=== PATIENT | female | born 1935 | race Caucasian/White ===

== ENCOUNTER 2017-02-11 13:04 | Inpatient (IN) | payer OTHER ==
--- NOTE | 2017-02-11 13:48 | PDOC ---
History of Present Illness - General History Source: Patient Exam Limitations: No Limitations <WendyAlex - Last Filed: 02/11/17 13:48> - General History Source: Patient Exam Limitations: No Limitations <Ketty Gongora - Last Filed: 02/11/17 16:51> - General Chief Complaint: Syncope/Near Syncope Stated Complaint: SYNCOPE Time Seen by Provider: 02/11/17 13:35 - History of Present Illness Initial Comments: 02/11/17 13:49 The patient is an 82 year old female with a significant past medical history of hypertension, hyperlipidemia, chronic vertigo, dementia, alzheimer's, GERD, who presents to the ED complaining of syncope. The patient reports that she had a syncopal episode during [facility] today. She states she felt dizzy, reports brief LOC, she now reports generalized weakness. As per family her fall was broken by them. She denies chest pain, pressure , SOB, palpitations, chills, fever, nausea, vomiting, blurry vision, urinary symptoms. PCP: Case Peter: [place] [address] (Alex Nguyen) Past History <WendyAlex - Last Filed: 02/11/17 13:48> - Past Medical History Cardiac Disorders: Yes Dementia: Yes HTN: Yes Hypercholesterolemia: Yes Other medical history: CHRONIC VERTIGO AND TREMORS - Surgical History Abdominal Surgery: Yes Appendectomy: Yes - Immunization History Immunization Up to Date: Yes - Psycho/Social/Smoking Cessation Hx Suicidal Ideation: No Smoking History: Never smoked Have you smoked in the past 12 months: No Number of Cigarettes Smoked Daily: 0 Information on smoking cessation initiated: No Hx Alcohol Use: No Drug/Substance Use Hx: No Substance Use Type: None Hx Substance Use Treatment: No <Ketty Gongora - Last Filed: 02/11/17 16:51> - Past Medical History Allergies/Adverse Reactions: Allergies Allergy/AdvReac Type Severity Reaction Status Date / Time No Known Allergies Allergy Verified 06/24/15 20:50 Home Medications: Ambulatory Orders Amlodipine Besylate 5 mg PO DAILY 06/24/15 Aspirin Coated [Ecotrin -] 1 tab PO DAILY 06/24/15 Atorvastatin Ca [Lipitor] 20 mg PO HS 06/24/15 Donepezil HCl [Aricept -] 5 mg PO DAILY 06/24/15 Meclizine HCl 25 mg PO BID 06/24/15 Memantine HCl [Namenda -] 5 mg PO BID 06/24/15 Omeprazole [Prilosec] 20 mg PO DAILY 06/24/15 Amoxicillin/Potassium Clav [Augmentin 875-125 Tablet] 1 each PO Q12H #20 tablet 06/28/15 Lisinopril [Zestril] 20 mg PO DAILY #0 06/28/15 Review of Systems - Review of Systems Able to Perform ROS?: Yes <Alex Nguyen - Last Filed: 02/11/17 13:48> <Ketty Gongora - Last Filed: 02/11/17 16:51> - Review of Systems Comments:: 02/11/17 13:49 GENERAL/CONSTITUTIONAL: +Generalized weakness No fever or chills. No weakness. HEAD, EYES, EARS, NOSE AND THROAT: No change in vision. No ear pain or discharge. No sore throat. GASTROINTESTINAL: No nausea, vomiting, diarrhea or constipation. GENITOURINARY: No dysuria, frequency, or change in urination. CARDIOVASCULAR: No chest pain or shortness of breath. RESPIRATORY: No cough, wheezing, or hemoptysis. MUSCULOSKELETAL: No joint or muscle swelling or pain. No neck or back pain. SKIN: No rash NEUROLOGIC: +Vertigo, LOC Syncope. No headache, vertigo, loss of consciousness, or change in strength/sensation. ENDOCRINE: No increased thirst. No abnormal weight change. HEMATOLOGIC/LYMPHATIC: No anemia, easy bleeding, or history of blood clots. ALLERGIC/IMMUNOLOGIC: No hives or skin allergy. (Alex Nguyen) *Physical Exam <Alex Nguyen - Last Filed: 02/11/17 13:48> <Ketty Gongora - Last Filed: 02/11/17 16:51> - Vital Signs Last Vital Signs Temp Pulse Resp BP Pulse Ox 98.1 F 70 18 109/65 97 02/11/17 13:28 02/11/17 13:28 02/11/17 13:28 02/11/17 13:28 02/11/17 13:28 - Physical Exam Comments: 02/11/17 13:50 GENERAL:. Awake, alert, and fully oriented, in no acute distress HEAD: No signs of trauma EYES: PERRLA, EOMI, sclera anicteric, conjunctiva clear ENT: Auricles normal inspection, nares patent, Moist mucosa NECK: Normal ROM, supple, no lymphadenopathy, JVD, or masses LUNGS: Breath sounds equal, clear to auscultation bilaterally. No wheezes, and no crackles HEART: Regular rate and rhythm, normal S1 and S2, no murmurs, rubs or gallops ABDOMEN: Soft, nontender, normoactive bowel sounds. No guarding, no rebound. No masses EXTREMITIES: Normal range of motion, no edema. No clubbing or cyanosis. No cords, erythema, or tenderness NEUROLOGICAL: A&OX3, 5/5 all 4 extremities, 2-12 cranial nerves intact. Norrmal speech. SKIN: Warm, Dry, normal turgor, no rashes or lesions noted. (Alex Nguyen) ED Treatment Course - LABORATORY CBC & Chemistry Diagram: 02/11/17 13:40 02/11/17 13:40 <Ketty Gongora - Last Filed: 02/11/17 16:51> - ADDITIONAL ORDERS Additional order review: Laboratory Results 02/11/17 13:40 Sodium 139 Potassium 4.3 D Chloride 104 Carbon Dioxide 28 Anion Gap 7 L BUN 20 H D Creatinine 1.2 H Creat Clearance w eGFR 43.23 Random Glucose 161 H D Calcium 9.2 Total Bilirubin 0.5 D AST 27 ALT 26 Alkaline Phosphatase 108 Creatine Kinase 59 Troponin I < 0.02 Total Protein 6.7 Albumin 3.2 L 02/11/17 13:40 RBC 4.10 MCV 76.1 L MCHC 32.0 RDW 17.8 H D MPV 7.5 Neutrophils % 83.6 H D Lymphocytes % 6.0 L D Monocytes % 8.6 Eosinophils % 0.6 Basophils % 1.2 - RADIOLOGY Radiology Studies Ordered: Category Date Time Status HEAD CT WITHOUT CONTRAST [CT] Stat CT Scan 02/11/17 16:34 Ordered CXRPORT [CHEST X-RAY PORTABLE*] [RAD] Stat Radiology 02/11/17 13:37 Completed Medical Decision Making <Alex Nguyen - Last Filed: 02/11/17 13:48> <Ketty Gongora - Last Filed: 02/11/17 16:51> - Medical Decision Making 02/11/17 13:40 82 yo F with h/o HTN HLD, here with syncopal episode at [facility]. brief loc, no focal weakness, did not hit head. normal exam.pt with chronic vertigo. differential electrolyte abnormality, dysrhthymia, anemia dehydration mi, mi. plan labs cxr ua r/o infection, ekg tele. 02/11/17 15:59 pt labs unremarkable. ekg normal except TWI AVL only, cbc normal trop negative. will admit for observation on telemetry cardiac rule out and r/o dysrhtymia. (Ketty Gongora) *DC/Admit/Observation/Transfer <Alex Nguyen - Last Filed: 02/11/17 13:48> - Discharge Dispostion Admit: Yes <Ketty Gongora - Last Filed: 02/11/17 16:51> Diagnosis at time of Disposition: Syncope - Referrals Referrals: STAFF,NOT ON [Primary Care Provider] - - Attestations Scribe Attestion: 02/11/17 13:50 Documentation prepared by Alex Nguyen, acting as medical assistant for Ketty Gongora MD. (Alex Nguyen)
[2017-02-11 13:58] LABS: BASOPHIL 1.2 % (0-2.0); EOSINOPHIL 0.6 % (0-4.5); MCH 24.4 pg (25.7-33.7); MEAN CELL VOLUME 76.1 fl (80-96); MEAN PLT VOLUME 7.5 fl (7.5-11.1); NEUTROPHILS 83.6 % (42.8-82.8); PLATELET COUNT 351 K/MM3 (134-434); RDW 17.8 % (11.6-15.6); WHITE BLOOD COUNT 8.5 K/mm3 (4.0-10.0)
[2017-02-11 14:22] LABS: ALBUMIN 3.2 g/dl (3.4-5.0); ANION GAP 7 (8-16); BILIRUBIN,TOTAL 0.5 mg/dL (0.2-1.0); CALCIUM 9.2 mg/dL (8.5-10.1); CO2 28 mmol/L (21-32); CREATININE 1.2 mg/dL (0.55-1.02); GLUCOSE,RANDOM 161 mg/dL (74-106); SGOT/AST 27 U/L (15-37); SGPT/ALT 26 U/L (12-78); TOT PROT 6.7 g/dl (6.4-8.2)
[2017-02-11 14:25] LABS: ALK PHOS 108 U/L (45-117); CPK 59 IU/L (26-192); TROPONIN I < 0.02 ng/ml (0.00-0.05)
[2017-02-11] MEDS ORDERED: SODIUM CHLORIDE 0.9% 1000 ML INFUS.BAG IV ONE (16:16)
[2017-02-11] MEDS ORDERED: SODIUM CHLORIDE 1,000 ML IV SCH ×2 (16:45→18:48)
[2017-02-11 16:58] LABS: URINE APPEARANCE SLCLOUDY; URINE BILIRUBIN NEGATIVE (NEGATIVE); URINE BLOOD NEGATIVE (NEGATIVE); URINE COLOR YELLOW; URINE GLUCOSE (UA) NEGATIVE (NEGATIVE); URINE KETONE NEGATIVE (NEGATIVE); URINE LEUK ESTERASE TRACE (NEGATIVE); URINE NITRITE NEGATIVE (NEGATIVE); URINE UROBILINOGEN NEGATIVE mg/dL (0.2-1.0)
[2017-02-11 17:19] LABS: CHOLESTEROL 166 mg/dL (50-200); LDL CHOLESTEROL (ONLY SJRH) 99 mg/dL (5-100)
[2017-02-11 17:47] LABS: URINE PROTEIN 1+ (NEGATIVE)
[2017-02-11 17:48] LABS: URINE HYALINE CAST 3 /lpf; URINE MUCUS FEW; URINE RBC <1 /hpf (0-3); URINE WBC 5 /hpf (3-5)
--- NOTE | 2017-02-11 18:09 | HP ---
PCP: Case Peter: [facility]; [address], [place], [place] [id number] CHIEF COMPLAINT: Syncope HISTORY OF PRESENT ILLNESS: Pt is a 82yo F with a PMHx of HTN, HLD, CAD, Vertigo who presented to the ER after syncopal episode. Pt is eritrean speaking, and translation was provided by eritrean speaking ER Nurse. Patient's daughter also provided some history. This AM, the patient was standing in [employer]. She felt weak, "dizzy", sat down in the pew, and moments later syncopized, without head trauma. She initially looked flushed and then was visibly pale. Family took the patient outside, and after 1 minute, pt regained consciousness. Though the patient felt dizzy, she denies feelings of vertigo such as room spinning or feeling that she is spinning. She denies hx of DM2. Family states the patient was "tremulous" but deny arm stiffening, loss of urinary continence, tongue biting, eye opening/ deviation, and the patient denies any prior "aura" or confusion/focal neurological symptoms upon awakening. The patient denies feeling warm or palpitations or headaches prior to syncope. The daughter states she does not drink as much water as she should. She has had 4 prior episodes of near syncope or syncope within the past month. Pt was seen here in 2016. Of note, since then her BP medications have been changed: Norvasc 5mg QD was discontinued and Lisinopril was increased from 20mg to 40mg QD ER course was notable for: (1) Labs - Hemoglobin 10.0, w/ low MCV, baseline 11 (2) IVNS 1L bolus (3) CXR - neg (4) EKG - Shows TWI AVL only Recent Travel: Denies PAST MEDICAL HISTORY: HTN, HLD, Vertigo, CAD, Dementia PAST SURGICAL HISTORY: Hysterectomy, appendectomy and cataract surgery. Right kidney stone removal and ureteral stent. Social History: Lives at home with daughter Smoking: Denies Alcohol: Denies Drugs: Denies Family History: Non-contributory Allergies: No Known Allergies Allergy (Verified 06/24/15 20:50) HOME MEDICATIONS: Home Medications (RECONCILED WITH PATIENT) Medication Instructions Recorded Aspirin Coated [Ecotrin -] 1 tab PO DAILY 06/24/15 Atorvastatin Ca [Lipitor] 20 mg PO HS 06/24/15 Meclizine HCl 25 mg PO BID 06/24/15 Omeprazole [Prilosec] 20 mg PO DAILY 06/24/15 Lisinopril [Zestril] 40 mg PO DAILY 02/11/17 REVIEW OF SYSTEMS CONSTITUTIONAL: Absent: fever, chills, diaphoresis, generalized, malaise, loss of appetite, weight change Present: weakness HEENT: Absent: rhinorrhea, nasal congestion, throat pain, throat swelling, difficulty swallowing, mouth swelling, ear pain, eye pain, visual changes CARDIOVASCULAR: Absent: chest pain, syncope, palpitations, irregular heart rate, lightheadedness , peripheral edema RESPIRATORY: Absent: cough, shortness of breath, dyspnea with exertion, orthopnea, wheezing, stridor, hemoptysis GASTROINTESTINAL: Absent: abdominal pain, abdominal distension, nausea, vomiting, diarrhea, constipation, melena, hematochezia GENITOURINARY: Absent: dysuria, frequency, urgency, hesitancy, hematuria, flank pain, genital pain MUSCULOSKELETAL: Absent: myalgia, arthralgia, joint swelling, back pain, neck pain SKIN: Absent: rash, itching, pallor HEMATOLOGIC/IMMUNOLOGIC: Absent: easy bleeding, easy bruising, lymphadenopathy, frequent infections ENDOCRINE: Absent: unexplained weight gain, unexplained weight loss, heat intolerance, cold intolerance NEUROLOGIC: Absent: headache, focal weakness or paresthesias, unsteady gait, seizure, mental status changes, bladder or bowel incontinence Present: dizziness PSYCHIATRIC: Absent: anxiety, depression, suicidal or homicidal ideation, hallucinations. PHYSICAL EXAMINATION GEN: Awake, alert, NAD, resting comfortably HNT: PERRLA, EOMi, Conjunctival pallor, no cervical LAD CV: S1, S2, RRR, no murmurs LUNG: CTABL ABD: Soft, NT, ND MSK: No edema Neuro: CN 2-12 intact, no sensation deficits, MSK 5/5, reflexes 2+, no focal neuro signs Laboratory Last Values WBC 8.5 K/mm3 (4.0-10.0) 02/11/17 13:40 RBC 4.10 M/mm3 (3.60-5.2) 02/11/17 13:40 Hgb 10.0 GM/dL (10.7-15.3) L 02/11/17 13:40 Hct 31.2 % (32.4-45.2) L 02/11/17 13:40 MCV 76.1 fl (80-96) L 02/11/17 13:40 MCH 24.4 pg (25.7-33.7) L 02/11/17 13:40 MCHC 32.0 g/dl (32.0-36.0) 02/11/17 13:40 RDW 17.8 % (11.6-15.6) H D 02/11/17 13:40 Plt Count 351 K/MM3 (134-434) D 02/11/17 13:40 MPV 7.5 fl (7.5-11.1) 02/11/17 13:40 Neutrophils % 83.6 % (42.8-82.8) H D 02/11/17 13:40 Lymphocytes % 6.0 % (8-40) L D 02/11/17 13:40 Monocytes % 8.6 % (3.8-10.2) 02/11/17 13:40 Eosinophils % 0.6 % (0-4.5) 02/11/17 13:40 Basophils % 1.2 % (0-2.0) 02/11/17 13:40 Sodium 139 mmol/L (136-145) 02/11/17 13:40 Potassium 4.3 mmol/L (3.5-5.1) D 02/11/17 13:40 Chloride 104 mmol/L (98-107) 02/11/17 13:40 Carbon Dioxide 28 mmol/L (21-32) 02/11/17 13:40 Anion Gap 7 (8-16) L 02/11/17 13:40 BUN 20 mg/dL (7-18) H D 02/11/17 13:40 Creatinine 1.2 mg/dL (0.55-1.02) H 02/11/17 13:40 Creat Clearance w eGFR 43.23 (>60) 02/11/17 13:40 Random Glucose 161 mg/dL (74-106) H D 02/11/17 13:40 Calcium 9.2 mg/dL (8.5-10.1) 02/11/17 13:40 Total Bilirubin 0.5 mg/dL (0.2-1.0) D 02/11/17 13:40 AST 27 U/L (15-37) 02/11/17 13:40 ALT 26 U/L (12-78) 02/11/17 13:40 Alkaline Phosphatase 108 U/L (45-117) 02/11/17 13:40 Creatine Kinase 59 IU/L (26-192) 02/11/17 13:40 Troponin I < 0.02 ng/ml (0.00-0.05) 02/11/17 13:40 Total Protein 6.7 g/dl (6.4-8.2) 02/11/17 13:40 Albumin 3.2 g/dl (3.4-5.0) L 02/11/17 13:40 Triglycerides 178 mg/dL (35-160) H 02/11/17 Unknown Cholesterol 166 mg/dL (50-200) 02/11/17 Unknown Total LDL Cholesterol 99 mg/dL (5-100) 02/11/17 Unknown HDL Cholesterol 46 mg/dL (40-60) 02/11/17 Unknown Urine Color Yellow 02/11/17 16:50 Urine Appearance Slcloudy 02/11/17 16:50 Urine pH 5.0 (5.0-8.0) 02/11/17 16:50 Urine Protein 1+ (NEGATIVE) H 02/11/17 16:50 Urine Glucose (UA) Negative (NEGATIVE) 02/11/17 16:50 Urine Ketones Negative (NEGATIVE) 02/11/17 16:50 Urine Blood Negative (NEGATIVE) 02/11/17 16:50 Urine Nitrite Negative (NEGATIVE) 02/11/17 16:50 Urine Bilirubin Negative (NEGATIVE) 02/11/17 16:50 Urine Urobilinogen Negative mg/dL (0.2-1.0) 02/11/17 16:50 Ur Leukocyte Esterase Trace (NEGATIVE) 02/11/17 16:50 ASSESSMENT/PLAN: Mrs. Abraham is a 82yo F with HTN, HLD, Vertigo who presented to ER after an episode of syncope, witnessed by family. Endorses low PO intake. # Syncope - Likely secondary to dehydration - Noncon Head CT - Orthostatic vitals - Carotid dopplers - Echo - UA+UCx - F/u Blood pressure # Acute Kidney Risk - Likely from dehydration - By RIFLE Criteria, since GFR decrease >25% from 60 --> 43 - Cr 1.2, baseline 1.0 - Will hold lisinopril - IV NS 75cc/hr x 1bag and f/u BMP in AM # Microcytic Anemia - Iron studies - FOBT # Hyperglycemia - Glucose 161 - A1C - BGMs w/ SSI # Hx of HLD - Continue statin # Hx of CAD - Continue ASA # Hx of GERD - Continue PPI # FEN - Fluids: IVNS 75cc/hr x 1 bag - continue if needed - Electrolytes: No abnormalities - Nutrition: Sodium controlled diet # Prophylaxis - DVT: Heparin SQ BID - GI: Not indicated - Deconditioning: Pt ordered # Dispo - Obs in Tele for cardiac monitoring - Await Neuro reccs Visit type - Emergency Visit Emergency Visit: Yes ED Registration Date: 02/11/17 Care time: The patient presented to the Emergency Department on the above date and was hospitalized for further evaluation of their emergent condition. - New Patient This patient is new to me today: Yes Date on this admission: 02/11/17 - Critical Care Critical Care patient: No
--- NOTE | 2017-02-11 18:47 | PN ---
Teaching Attending Note Name of Resident: Verito Engel ATTENDING PHYSICIAN STATEMENT I saw and evaluated the patient. I reviewed the resident's note and discussed the case with the resident. I agree with the resident's findings and plan as documented. SUBJECTIVE: Patient is a 82yo female presented with syncope while in the [employer], as per son this happens on a monthly basis, but this month , patient had 3 episodes of syncope in a month period. OBJECTIVE: Vital Signs Temperature 98.1 F 02/11/17 13:28 Pulse Rate 70 02/11/17 13:28 Respiratory Rate 18 02/11/17 13:28 Blood Pressure 109/65 02/11/17 13:28 O2 Sat by Pulse Oximetry (%) 97 02/11/17 13:28 CBCD WBC 8.5 K/mm3 (4.0-10.0) 02/11/17 13:40 RBC 4.10 M/mm3 (3.60-5.2) 02/11/17 13:40 Hgb 10.0 GM/dL (10.7-15.3) L 02/11/17 13:40 Hct 31.2 % (32.4-45.2) L 02/11/17 13:40 MCV 76.1 fl (80-96) L 02/11/17 13:40 MCHC 32.0 g/dl (32.0-36.0) 02/11/17 13:40 RDW 17.8 % (11.6-15.6) H D 02/11/17 13:40 Plt Count 351 K/MM3 (134-434) D 02/11/17 13:40 MPV 7.5 fl (7.5-11.1) 02/11/17 13:40 CMP Sodium 139 mmol/L (136-145) 02/11/17 13:40 Potassium 4.3 mmol/L (3.5-5.1) D 02/11/17 13:40 Chloride 104 mmol/L (98-107) 02/11/17 13:40 Carbon Dioxide 28 mmol/L (21-32) 02/11/17 13:40 Anion Gap 7 (8-16) L 02/11/17 13:40 BUN 20 mg/dL (7-18) H D 02/11/17 13:40 Creatinine 1.2 mg/dL (0.55-1.02) H 02/11/17 13:40 Creat Clearance w eGFR 43.23 (>60) 02/11/17 13:40 Random Glucose 161 mg/dL (74-106) H D 02/11/17 13:40 Calcium 9.2 mg/dL (8.5-10.1) 02/11/17 13:40 Total Bilirubin 0.5 mg/dL (0.2-1.0) D 02/11/17 13:40 AST 27 U/L (15-37) 02/11/17 13:40 ALT 26 U/L (12-78) 02/11/17 13:40 Alkaline Phosphatase 108 U/L (45-117) 02/11/17 13:40 Total Protein 6.7 g/dl (6.4-8.2) 02/11/17 13:40 Albumin 3.2 g/dl (3.4-5.0) L 02/11/17 13:40 CARDIAC ENZYMES Creatine Kinase 59 IU/L (26-192) 02/11/17 13:40 Troponin I < 0.02 ng/ml (0.00-0.05) 02/11/17 13:40 Home Medications Medication Instructions Recorded Aspirin Coated [Ecotrin -] 1 tab PO DAILY 06/24/15 Atorvastatin Ca [Lipitor] 20 mg PO HS 06/24/15 Meclizine HCl 25 mg PO BID 06/24/15 Omeprazole [Prilosec] 20 mg PO DAILY 06/24/15 Lisinopril [Zestril] 40 mg PO DAILY 02/11/17 Current Medications Generic Name Dose Route Start Last Admin Trade Name Berny PRN Reason Stop Dose Admin Atorvastatin Calcium 20 mg 02/11/17 22:00 Lipitor - PO HS [facility] Heparin Sodium (Porcine) 5,000 unit 02/11/17 22:00 Heparin - SQ TID [facility] Sodium Chloride 1,000 mls @ 75 mls/hr 02/11/17 16:45 Normal Saline - IV ASDIR ALBINO Insulin Aspart 1 vial 02/12/17 07:00 Novolog Vial Sliding Scale - SQ BIDAC [facility] Protocol Non-Formulary Medication 20 mg 02/12/17 10:00 Omeprazole Pediatric Solution PO DAILY [facility] PE: S1S2 positive, no carotid bruits SEM2/6, no gallop, no S3 ASSESSMENT AND PLAN: Patient is a 82yo F with HTN, HLD, Vertigo who presented to ER after an episode of syncope as per family member that they witnessed while the patient was in the [employer]. # Acute Syncope most likely vasovagal / dehydration since has low fluid intake, will get Carotids, neurology consult to see the patient. echo ordered , orthostatics. # ARF hold lisinopril for now, will monitor, IVF x 1 liter # Microcytic Anemia; Iron studies ; FOBT # Hyperglycemia R/o DM2; A1C; BGMs w/ SSI # Hx of HLD continue statin # Hx of CAD continue meds - # Hx of GERD continue PPI # DVT Prophylaxis :heparin SQ
[2017-02-11 18:52] VITALS: BMI 28.2
[2017-02-11] MEDS ORDERED: HEPARIN NA (PORCINE) 5,000 UNITS/ML 1ML VIAL SQ SCH ×2 (22:00)
[2017-02-12] MEDS ORDERED: HEPARIN NA (PORCINE) 5,000 UNITS/ML 1ML VIAL ONE (00:55)
[2017-02-12] MEDS: ATORVASTATIN CA 20 MG TABLET (FP) PO SCH ×2 (01:00→22:29)
[2017-02-12] MEDS: INSULIN SLIDING SCALE (NOVOLOG) 1 VIAL SQ SCH ×2 (07:46→18:00)
[2017-02-12] MEDS ORDERED: HEPARIN NA (PORCINE) 5,000 UNITS/ML 1ML VIAL SQ SCH ×2 (08:00→08:33)
[2017-02-12] MEDS: SODIUM CHLORIDE 1,000 ML IV SCH ×2 (08:03→18:00)
[2017-02-12 08:05] LABS: MCH 24.4 pg (25.7-33.7); MEAN CELL VOLUME 76.4 fl (80-96); MEAN PLT VOLUME 7.7 fl (7.5-11.1); PLATELET COUNT 315 K/MM3 (134-434); RDW 17.7 % (11.6-15.6); WHITE BLOOD COUNT 5.6 K/mm3 (4.0-10.0)
[2017-02-12 08:51] LABS: ANION GAP 8 (8-16); CO2 27 mmol/L (21-32); GLUCOSE,RANDOM 87 mg/dL (74-106)
[2017-02-12 08:54] LABS: CALCIUM 8.3 mg/dL (8.5-10.1); CREATININE 0.8 mg/dL (0.55-1.02)
[2017-02-12] MEDS: ASPIRIN COATED 81 MG TABLET.EC PO SCH (10:04)
[2017-02-12] MEDS: PANTOPRAZOLE SOD 40 MG SUSPENSION PACKET PO SCH (10:04)
--- NOTE | 2017-02-12 11:29 | EKG ---
Test Reason : Blood Pressure : / mmHG Vent. Rate : 062 BPM Atrial Rate : 068 BPM P-R Int : 266 ms QRS Dur : 070 ms QT Int : 418 ms P-R-T Axes : 033 037 074 degrees QTc Int : 424 ms SINUS RHYTHM WITH 1ST DEGREE A-V BLOCK WITH BLOCKED PREMATURE ATRIAL COMPLEXES POSSIBLE ANTERIOR INFARCT , AGE UNDETERMINED ABNORMAL ECG WHEN COMPARED WITH ECG OF 24-JUN-2015 21:05, BLOCKED PREMATURE ATRIAL COMPLEXES ARE NOW PRESENT T WAVE VARIATION VENT. RATE HAS DECREASED Confirmed by FRANCHESKA LAZCANO MD ([id number]) on 02/12/2017 11:28:56 AM Referred By: Confirmed By:FRANCHESKA LAZCANO MD
--- NOTE | 2017-02-12 14:43 | PN ---
Physical Exam: SUBJECTIVE: Patient seen and examined at bedside. Pt had a witnessed syncople episode in ED. Pt states she feels fine. No other complaints. Denies headache, chest pain, shortness of breath, fever, dysuria. OBJECTIVE: Vital Signs Period Temp Pulse Resp BP Sys/Reyes Pulse Ox Last 24 Hr 97.9 F-98 F 62-70 16-18 103-111/55-60 95-100 GENERAL: The patient is awake, alert, and fully oriented, in no acute distress. HEAD: Normal with no signs of trauma. EYES: sclera anicteric, conjunctiva clear. No ptosis. ENT: oropharynx clear without exudates, moist mucous membranes. NECK: Trachea midline, full range of motion, supple. LUNGS: Breath sounds equal, clear to auscultation bilaterally, no wheezes, no crackles, no accessory muscle use. HEART: Regular rate and rhythm, S1, S2 without murmur, rub or gallop. ABDOMEN: Soft, nontender, nondistended, normoactive bowel sounds, no guarding, no rebound, no hepatosplenomegaly, no masses. EXTREMITIES: 2+ pulses, warm, well-perfused, no edema. NEUROLOGICAL: Cranial nerves II through XII grossly intact. Normal speech, gait not observed. PSYCH: Normal mood, normal affect. SKIN: Warm, dry, normal turgor, no rashes or lesions noted Laboratory Results - last 24 hr 02/11/17 02/11/17 02/11/17 16:54 16:54 Unknown WBC RBC Hgb Hct MCV MCH MCHC RDW Plt Count MPV Sodium Potassium Chloride Carbon Dioxide Anion Gap BUN Creatinine POC Glucometer Random Glucose Hemoglobin A1c % 6.1 H Calcium Ferritin 8.507 Triglycerides 178 H Cholesterol 166 Total LDL Cholesterol 99 HDL Cholesterol 46 02/12/17 02/12/17 02/12/17 07:25 07:50 07:50 WBC 5.6 D RBC 3.76 Hgb 9.2 L Hct 28.7 L MCV 76.4 L MCH 24.4 L MCHC 32.0 RDW 17.7 H Plt Count 315 MPV 7.7 Sodium 145 Potassium 4.2 Chloride 110 H Carbon Dioxide 27 Anion Gap 8 BUN 16 Creatinine 0.8 D POC Glucometer [id number] Random Glucose 87 D Hemoglobin A1c % Calcium 8.3 L Ferritin Triglycerides Cholesterol Total LDL Cholesterol HDL Cholesterol Active Medications Generic Name Dose Route Start Last Admin Trade Name Berny PRN Reason Stop Dose Admin Aspirin 81 mg 02/12/17 10:00 02/12/17 10:04 Ecotrin - PO 81 mg DAILY ALBINO Administration Atorvastatin Calcium 20 mg 02/11/17 22:00 02/12/17 01:00 Lipitor - PO Not Given HS ALBINO Heparin Sodium (Porcine) 5,000 unit 02/12/17 22:00 Heparin - SQ BID ALBINO Sodium Chloride 1,000 mls @ 75 mls/hr 02/12/17 08:00 02/12/17 08:03 Normal Saline - IV 02/13/17 21:19 75 mls/hr ASDIR ALBINO Administration Insulin Aspart 1 vial 02/12/17 07:00 02/12/17 07:46 Novolog Vial Sliding Scale - SQ Not Given BIDAC ALBINO Protocol Pantoprazole Sodium 20 mg 02/12/17 10:00 02/12/17 10:04 Protonix Packets For Oral Suspension - PO 20 mg DAILY ALBINO Administration ASSESSMENT/PLAN: Mrs. Abraham is a 82yo F with HTN, HLD, Vertigo who presented to ER after an episode of syncope, witnessed by family. Endorses low PO intake. # Syncope - Likely secondary to dehydration - Noncon Head CT negative - Orthostatic vitals - Carotid dopplers show - UA+UCx pending - F/u Blood pressure - Echo pending # Acute Kidney Injury resolved - Likely from dehydration - By RIFLE Criteria, at risk since GFR decrease >25% from 60 --> 43 - Cr 0.8 - Will hold lisinopril - IV NS 75cc/hr x 1bag # Microcytic Anemia - Iron studies pending - Ferritin 8.507 - FOBT # Hyperglycemia - A1C - 6.1 - BGMs w/ SSI # Hx of HLD - Continue statin # Hx of CAD - Continue ASA # Hx of GERD - Continue PPI # FEN - Fluids: IVNS 75cc/hr - Electrolytes: No abnormalities - Nutrition: Sodium controlled diet # Prophylaxis - DVT: Heparin SQ BID - GI: Not indicated - Deconditioning: Pt ordered # Dispo - Obs in Tele for cardiac monitoring - Await Neuro reccs Justin Edwards MD PGY-1 Visit type - Emergency Visit Emergency Visit: No - New Patient This patient is new to me today: No - Critical Care Critical Care patient: No - Discharge Referral Referred to [facility] No
--- NOTE | 2017-02-12 17:15 | EKG ---
Test Reason : Blood Pressure : / mmHG Vent. Rate : 068 BPM Atrial Rate : 068 BPM P-R Int : 228 ms QRS Dur : 070 ms QT Int : 400 ms P-R-T Axes : 033 044 065 degrees QTc Int : 425 ms SINUS RHYTHM WITH 1ST DEGREE A-V BLOCK OTHERWISE NORMAL ECG WHEN COMPARED WITH ECG OF 11-FEB-2017 15:00, BLOCKED PREMATURE ATRIAL COMPLEXES ARE NO LONGER PRESENT Confirmed by JAELESA BARCENAS, FRANCHESKA ([id number]) on 02/12/2017 5:15:33 PM Referred By: KIMBERLY RIZVI Confirmed By:FRANCHESKA LAZCANO MD
--- NOTE | 2017-02-12 17:50 | CON.NEURO ---
Consult Consult Specialty:: Neurology-Nunu BARCENAS Reason for Consultation:: Syncope vs seizure - History of Present Illness Chief Complaint: Fainting History of Present Illness: Pt is a 82yo F with a PMHx of HTN, HLD, CAD, Vertigo who presented to the ER after syncopal episode. Pt is cameroonian speaking, and translation was provided by cameroonian speaking ER Nurse. Patient's daughter also provided some history. This AM, the patient was standing in [employer]. She felt weak, "dizzy", sat down in the pew, and moments later syncopized, without head trauma. She initially looked flushed and then was visibly pale. Family took the patient outside, and after 1 minute, pt regained consciousness. Though the patient felt dizzy, she denies feelings of vertigo such as room spinning or feeling that she is spinning. She denies hx of DM2. Family states the patient was "tremulous" but deny arm stiffening, loss of urinary continence, tongue biting, eye opening/ deviation, and the patient denies any prior "aura" or confusion/focal neurological symptoms upon awakening. The patient denies feeling warm or palpitations or headaches prior to syncope. The daughter states she does not drink as much water as she should. She has had 4 prior episodes of near syncope or syncope within the past month. Pt was seen here in 2016. Of note, since then her BP medications have been changed: Norvasc 5mg QD was discontinued and Lisinopril was increased from 20mg to 40mg QD Pts. daughter reports she stood up,had LOC x 2 minutes but did not fall as she was being held, following this she was confused, denies other neurologic symtoms. Three years ago shehada similar episode and in last several months she has had what appear to be presyncopal episodes as above.. - Past Medical History ATOMIC PROCESS ENGINEER: Yes: Dementia Cardio/Vascular: Yes: HTN, Hyperlipdemia - Past Surgical History Past Surgical History: Yes: Appendectomy, Cataract Removal, Hysterectomy - Alcohol/Substance Use Hx Alcohol Use: No - Smoking History Smoking history: Never smoked Have you smoked in the past 12 months: No Aproximately how many cigarettes per day: 0 Home Medications - Allergies Allergies/Adverse Reactions: Allergies Allergy/AdvReac Type Severity Reaction Status Date / Time No Known Allergies Allergy Verified 06/24/15 20:50 - Home Medications Home Medications: Ambulatory Orders Aspirin Coated [Ecotrin -] 1 tab PO DAILY 06/24/15 Atorvastatin Ca [Lipitor] 20 mg PO HS 06/24/15 Meclizine HCl 25 mg PO BID 06/24/15 Omeprazole [Prilosec] 20 mg PO DAILY 06/24/15 Lisinopril [Zestril] 40 mg PO DAILY 02/11/17 Physical Exam-Neuro Vital Signs: Vital Signs Temperature 98.3 F 02/12/17 15:53 Pulse Rate 72 02/12/17 15:53 Respiratory Rate 16 02/12/17 15:53 Blood Pressure 125/79 02/12/17 15:53 O2 Sat by Pulse Oximetry (%) 96 02/12/17 07:49 Labs: CBC, BMP 02/12/17 07:50 02/12/17 07:50 - Neuro Exam Level Of Consciousness: Yes: Alert, Oriented to Person, Oriented to Place (Not to day/date. Pt. has a hx.of AD) Mini Mental Exam: Unable to test formally due to preexisting cognitive deficits( AD and language barrier DTR's: 1+ Left Bicep, 1+ Right Bicep, 1+ Left Tricep, 1+ Right Tricep, 1+ Left Brachioradialis, 1+ Right Brachioradialis, 1+ Left Achilles, 1+ Right Achilles Response to light touch: Normal Response to pain prick: Normal (Unable to test vib/position) Coordination: Normal: Finger to Nose (Normal F-N) Motor Strength: 5/5: Left Arm, Right Arm, Left Leg, Right Leg Gait: Other (Short steps,normal arm swing.) Imaging - Results Cat Scan: Report Reviewed (Hyperostosis frontalis interna, volume loss.) Assessment/Plan Pt. with hx.of recent presyncope, now with an episode of LOC with bilat. UE movements and confusion, she had a similar episode 3 years ago. It is difficult to differentiate whether current episode was a seizure or not. She is predisposed to seizureas she has AD, would obtain a cardiology consult and an EEG. Would place her on Keppra 250mg bid(to be titrated up.. Thank you, Velma Eddy MD
--- NOTE | 2017-02-12 19:00 | PN ---
Teaching Attending Note Name of Resident: Justin Edwards ATTENDING PHYSICIAN STATEMENT I saw and evaluated the patient. I reviewed the resident's note and discussed the case with the resident. I agree with the resident's findings and plan as documented. SUBJECTIVE: Patient is comfortable, no further syncopal episode. OBJECTIVE: Vital Signs Temperature 98.3 F 02/12/17 15:53 Pulse Rate 72 02/12/17 15:53 Respiratory Rate 16 02/12/17 15:53 Blood Pressure 125/79 02/12/17 15:53 O2 Sat by Pulse Oximetry (%) 96 02/12/17 07:49 CBCD WBC 5.6 K/mm3 (4.0-10.0) D 02/12/17 07:50 RBC 3.76 M/mm3 (3.60-5.2) 02/12/17 07:50 Hgb 9.2 GM/dL (10.7-15.3) L 02/12/17 07:50 Hct 28.7 % (32.4-45.2) L 02/12/17 07:50 MCV 76.4 fl (80-96) L 02/12/17 07:50 MCHC 32.0 g/dl (32.0-36.0) 02/12/17 07:50 RDW 17.7 % (11.6-15.6) H 02/12/17 07:50 Plt Count 315 K/MM3 (134-434) 02/12/17 07:50 MPV 7.7 fl (7.5-11.1) 02/12/17 07:50 CMP Sodium 145 mmol/L (136-145) 02/12/17 07:50 Potassium 4.2 mmol/L (3.5-5.1) 02/12/17 07:50 Chloride 110 mmol/L (98-107) H 02/12/17 07:50 Carbon Dioxide 27 mmol/L (21-32) 02/12/17 07:50 Anion Gap 8 (8-16) 02/12/17 07:50 BUN 16 mg/dL (7-18) 02/12/17 07:50 Creatinine 0.8 mg/dL (0.55-1.02) D 02/12/17 07:50 Creat Clearance w eGFR 43.23 (>60) 02/11/17 13:40 Random Glucose 87 mg/dL (74-106) D 02/12/17 07:50 Calcium 8.3 mg/dL (8.5-10.1) L 02/12/17 07:50 Total Bilirubin 0.5 mg/dL (0.2-1.0) D 02/11/17 13:40 AST 27 U/L (15-37) 02/11/17 13:40 ALT 26 U/L (12-78) 02/11/17 13:40 Alkaline Phosphatase 108 U/L (45-117) 02/11/17 13:40 Total Protein 6.7 g/dl (6.4-8.2) 02/11/17 13:40 Albumin 3.2 g/dl (3.4-5.0) L 02/11/17 13:40 CARDIAC ENZYMES Creatine Kinase 59 IU/L (26-192) 02/11/17 13:40 Troponin I < 0.02 ng/ml (0.00-0.05) 02/11/17 13:40 Current Medications Generic Name Dose Route Start Last Admin Trade Name Berny PRN Reason Stop Dose Admin Aspirin 81 mg 02/12/17 10:00 02/12/17 10:04 Ecotrin - PO 81 mg DAILY ALBINO Administration Atorvastatin Calcium 20 mg 02/11/17 22:00 02/12/17 01:00 Lipitor - PO Not Given HS ALBINO Heparin Sodium (Porcine) 5,000 unit 02/12/17 22:00 Heparin - SQ BID ALBINO Sodium Chloride 1,000 mls @ 75 mls/hr 02/12/17 08:00 02/12/17 18:00 Normal Saline - IV 02/13/17 21:19 75 mls/hr ASDIR ALBINO Administration Insulin Aspart 1 vial 02/12/17 07:00 02/12/17 18:00 Novolog Vial Sliding Scale - SQ Not Given BIDAC [facility] Protocol Pantoprazole Sodium 20 mg 02/12/17 10:00 02/12/17 10:04 Protonix Packets For Oral Suspension - PO 20 mg DAILY ALBINO Administration PE: per resident's note CT of the head: negative for bleed Carotid duplex: 50-69% stenosis in the right carotid bulb/internal carotid artery. Left is negative for stenosis. ASSESSMENT AND PLAN: Patient is a 82yo F with HTN, HLD, Vertigo who presented to ER after an episode of syncope as per family member that they witnessed while the patient was in the [employer]. # Possible seizure as per neuro , started the patient on Keppra 250mg po bid . and EEG ordered. #s/p Syncope x3 this past month as per patient's son ; will place the patient in tele. for possible arrhythmia, neuro 's group. # ARF improved , will place the patient back to lisinopril for now, will monitor, s/p IVF x 1 liter # Microcytic Anemia; Iron studies ; FOBT # Hyperglycemia R/o DM2; A1C; BGMs w/ SSI # Hx of HLD continue statin # Hx of CAD continue meds - # Hx of GERD continue PPI # DVT Prophylaxis :heparin SQ
--- NOTE | 2017-02-12 20:47 | PN ---
Progress Note (short form) - Note Progress Note: [facility] All carotid doppler images reviewed. All Peak systolic veloicites and end diastolic velocities normal. At best maybe a 20% stenosis. No need for any vascular intervention. Cont medical workup. Tyrone Spence DO
[2017-02-12] MEDS: guaiFENesin 200 MG/10 ML 10 ML UNIT-DOSE CUPS PO PRN (22:29)
[2017-02-12] MEDS: HEPARIN NA (PORCINE) 5,000 UNITS/ML 1ML VIAL SQ SCH (22:29)
[2017-02-12] MEDS: levETIRAcetam 250 MG TABLET (FP) PO SCH (22:29)
[2017-02-13 06:06] LABS: SERUM IRON 16 ug/dL (27-139); TOTAL IRON BINDING CAPACITY 342 ug/dL (250-450); UIBC 326 ug/dL (118-369)
[2017-02-13] MEDS: INSULIN SLIDING SCALE (NOVOLOG) 1 VIAL SQ SCH ×2 (06:31→17:37)
[2017-02-13 07:38] LABS: FREE T4 1.14 ng/dl (0.76-1.46); THYROID STIMULATING HORMONE 1.69 uIU/ml (0.358-3.74)
--- NOTE | 2017-02-13 08:09 | PN ---
Progress Note (short form) - Note Progress Note: NEUROLOGY PROGRESS NOTE-TRESA BARCENAS Pts. condition unchanged, started on Keppra yesterday. Her examination is unchanged. If tolerating Keppra would increase to 250mg qam and 500mg hs with the idea that she can be discharged on 500mg bid. EEG may be performed as outpatient if not done today. Velma Eddy MD
[2017-02-13] MEDS: PANTOPRAZOLE SOD 40 MG SUSPENSION PACKET PO SCH (09:00)
[2017-02-13] MEDS: levETIRAcetam 250 MG TABLET (FP) PO SCH ×2 (09:01→22:49)
[2017-02-13] MEDS: ASPIRIN COATED 81 MG TABLET.EC PO SCH (09:01)
[2017-02-13] MEDS: HEPARIN NA (PORCINE) 5,000 UNITS/ML 1ML VIAL SQ SCH ×2 (09:01→22:50)
[2017-02-13] MEDS: guaiFENesin 200 MG/10 ML 10 ML UNIT-DOSE CUPS PO PRN (09:01)
--- NOTE | 2017-02-13 10:03 | DS ---
Physical Exam: SUBJECTIVE: Patient seen and examined at bedside. No acute events overnight. Pt has a mild cough. No other complaints at this time. Pt denies headache, nausea, vomiting, diarrhea, fever. OBJECTIVE: Vital Signs Period Temp Pulse Resp BP Sys/Reyes Pulse Ox Last 24 Hr 98 F-99.1 F 64-80 16-20 106-125/56-79 97 PHYSICAL EXAM GENERAL: The patient is awake, alert, and fully oriented, in no acute distress. HEAD: Normal with no signs of trauma. EYES: sclera anicteric, conjunctiva clear. ENT: nares patent, oropharynx clear without exudates, moist mucous membranes. NECK: Trachea midline, full range of motion, supple. LUNGS: Breath sounds equal, clear to auscultation bilaterally, no wheezes, no crackles, no accessory muscle use. HEART: Regular rate and rhythm, normal S1, S2 without murmur, rub or gallop. ABDOMEN: Soft, nontender, nondistended, normoactive bowel sounds, no guarding, no rebound, no hepatosplenomegaly, no masses. EXTREMITIES: 2+ pulses, warm, well-perfused, no edema. NEUROLOGICAL: Cranial nerves II through XII grossly intact. Normal speech, gait not observed. No pronator drift. Strength 5/5 throughout. Sensation intact throughout. PSYCH: Normal mood, normal affect. SKIN: Warm, dry, normal turgor, no rashes or lesions noted. LABS Laboratory Results - last 24 hr 02/11/17 02/12/17 02/13/17 16:54 17:30 05:35 POC Glucometer 102 Fasting Glucose 82 Hemoglobin A1c % Iron 16 L TIBC 342 Iron Saturation 5 L Triglycerides 125 D Cholesterol 145 Total LDL Cholesterol 86 HDL Cholesterol 43 TSH 1.69 Free T4 1.14 02/13/17 02/13/17 05:35 06:21 POC Glucometer 89 Fasting Glucose Hemoglobin A1c % 5.6 D Iron TIBC Iron Saturation Triglycerides Cholesterol Total LDL Cholesterol HDL Cholesterol TSH Free T4 HOSPITAL COURSE: Date of Admission:02/11/17 Date of Discharge: 02/13/17 Mrs. Abraham is a 82yo F with HTN, HLD, Vertigo who presented to ER after an episode of syncope, witnessed by family. Endorses low PO intake. Pt was admitted for treated of syncople episode. Head CT was negative, orthostatic vitals, carotid dopplers (per Vasc surg 20% lesion), and echo were unremarkable. Likely etiology was thought to be dehydration and/or vasovagal syncope. Seizure disorder could not be ruled out. Pt had EEG done inpt and will follow up with neurologist outpt for further workup. The patient was found to have mild FLASH on admission, which resolved with fluids. The patient was found to have an incidental microcytic anemia. Pt is being sent home with an iron supplament. The patient was found to have hyperglycemia. A1C was 6.1. Pt was advised on improving diet and instructed to follow up with PCP. The patient's HLD, hx of CAD, and hx of GERD were treated with home medications. The patient is stable for discharge home. Justin Edwards MD PGY-1 Minutes to complete discharge: 45 Discharge Summary Reason For Visit: SYNCOPE Current Active Problems Fever (Acute) Sepsis (Acute) Syncope (Acute) Condition: Stable - Instructions Diet, Activity, Other Instructions: Please follow up with your primary care doctor and with your neurologist (Dr. Eddy). You need to have an EEG done with Dr. Eddy as an out patient. Please take all your prescription medications as directed. Your blood sugar was slightly elevated. You need to follow up on this with your primary care doctor. In the meantime, you should try and improve your diet. Avoid eating sugar, and try to make sure you eat lean protein and vegetables. If your symptoms get worse or if you develop new symptoms, please return to the Emergency Department. Referrals: STAFF,NOT ON [Primary Care Provider] - 1 Week Disposition: HOME - Home Medications Comprehensive Discharge Medication List: Ambulatory Orders Aspirin Coated [Ecotrin -] 1 tab PO DAILY 06/24/15 Atorvastatin Ca [Lipitor] 20 mg PO HS 06/24/15 Meclizine HCl 25 mg PO BID 06/24/15 Omeprazole [Prilosec] 20 mg PO DAILY 06/24/15 Lisinopril [Zestril] 40 mg PO DAILY 02/11/17 Levetiracetam [Keppra -] 500 mg PO BID #40 tablet 02/13/17 - Discharge Referral Referred to [facility] Med [facility].C.: No
--- NOTE | 2017-02-13 10:31 | PN ---
Teaching Attending Note Name of Resident: Justin Edwards ATTENDING PHYSICIAN STATEMENT I saw and evaluated the patient. I reviewed the resident's note and discussed the case with the resident. I agree with the resident's findings and plan as documented. SUBJECTIVE: Comfortable , with no acute distress. OBJECTIVE: Vital Signs Temperature 98.2 F 02/13/17 08:10 Pulse Rate 64 02/13/17 08:10 Respiratory Rate 16 02/13/17 08:10 Blood Pressure 108/68 02/13/17 08:10 O2 Sat by Pulse Oximetry (%) 97 02/12/17 22:00 CBCD WBC 5.6 K/mm3 (4.0-10.0) D 02/12/17 07:50 RBC 3.76 M/mm3 (3.60-5.2) 02/12/17 07:50 Hgb 9.2 GM/dL (10.7-15.3) L 02/12/17 07:50 Hct 28.7 % (32.4-45.2) L 02/12/17 07:50 MCV 76.4 fl (80-96) L 02/12/17 07:50 MCHC 32.0 g/dl (32.0-36.0) 02/12/17 07:50 RDW 17.7 % (11.6-15.6) H 02/12/17 07:50 Plt Count 315 K/MM3 (134-434) 02/12/17 07:50 MPV 7.7 fl (7.5-11.1) 02/12/17 07:50 CMP Sodium 145 mmol/L (136-145) 02/12/17 07:50 Potassium 4.2 mmol/L (3.5-5.1) 02/12/17 07:50 Chloride 110 mmol/L (98-107) H 02/12/17 07:50 Carbon Dioxide 27 mmol/L (21-32) 02/12/17 07:50 Anion Gap 8 (8-16) 02/12/17 07:50 BUN 16 mg/dL (7-18) 02/12/17 07:50 Creatinine 0.8 mg/dL (0.55-1.02) D 02/12/17 07:50 Creat Clearance w eGFR 43.23 (>60) 02/11/17 13:40 Random Glucose 87 mg/dL (74-106) D 02/12/17 07:50 Calcium 8.3 mg/dL (8.5-10.1) L 02/12/17 07:50 Total Bilirubin 0.5 mg/dL (0.2-1.0) D 02/11/17 13:40 AST 27 U/L (15-37) 02/11/17 13:40 ALT 26 U/L (12-78) 02/11/17 13:40 Alkaline Phosphatase 108 U/L (45-117) 02/11/17 13:40 Total Protein 6.7 g/dl (6.4-8.2) 02/11/17 13:40 Albumin 3.2 g/dl (3.4-5.0) L 02/11/17 13:40 CARDIAC ENZYMES Creatine Kinase 59 IU/L (26-192) 02/11/17 13:40 Troponin I < 0.02 ng/ml (0.00-0.05) 02/11/17 13:40 Current Medications Generic Name Dose Route Start Last Admin Trade Name Berny PRN Reason Stop Dose Admin Aspirin 81 mg 02/12/17 10:00 02/13/17 09:01 Ecotrin - PO 81 mg DAILY ALBINO Administration Atorvastatin Calcium 20 mg 02/11/17 22:00 02/12/17 22:29 Lipitor - PO 20 mg HS ALBINO Administration Guaifenesin 10 ml 02/12/17 21:36 02/13/17 09:01 Robitussin - PO 10 ml Q6H PRN Administration COUGH Heparin Sodium (Porcine) 5,000 unit 02/12/17 22:00 02/13/17 09:01 Heparin - SQ 5,000 unit BID ALBINO Administration Sodium Chloride 1,000 mls @ 75 mls/hr 02/12/17 08:00 02/12/17 18:00 Normal Saline - IV 02/13/17 21:19 75 mls/hr ASDIR ALBINO Administration Insulin Aspart 1 vial 02/12/17 07:00 02/13/17 06:31 Novolog Vial Sliding Scale - SQ Not Given [facility] Protocol Levetiracetam 250 mg 02/12/17 22:00 02/13/17 09:01 Keppra - PO 250 mg BID ALBINO Administration Pantoprazole Sodium 20 mg 02/12/17 10:00 02/13/17 09:00 Protonix Packets For Oral Suspension - PO 20 mg DAILY ALBINO Administration Home Medications Medication Instructions Recorded Aspirin Coated [Ecotrin -] 1 tab PO DAILY 06/24/15 Atorvastatin Ca [Lipitor] 20 mg PO HS 06/24/15 Meclizine HCl 25 mg PO BID 06/24/15 Omeprazole [Prilosec] 20 mg PO DAILY 06/24/15 Lisinopril [Zestril] 40 mg PO DAILY 02/11/17 Ferrous Sulfate [Slow Fe] 142 mg PO DAILY #20 tablet.er 02/13/17 Levetiracetam [Keppra -] 500 mg PO BID #40 tablet 02/13/17 Laboratory Tests 02/11/17 02/11/17 02/11/17 16:54 16:54 16:54 Hemoglobin A1c % 6.1 H Iron 16 L TIBC 342 Iron Saturation 5 L Ferritin 8.507 Triglycerides Cholesterol Total LDL Cholesterol HDL Cholesterol TSH Free T4 02/13/17 05:35 Hemoglobin A1c % Iron TIBC Iron Saturation Ferritin Triglycerides 125 D Cholesterol 145 Total LDL Cholesterol 86 HDL Cholesterol 43 TSH 1.69 Free T4 1.14 PE: per resident's note CT of the head: negative for bleed Carotid duplex: 50-69% stenosis in the right carotid bulb/internal carotid artery. Left is negative for stenosis. ASSESSMENT AND PLAN: Patient is a 82yo F with HTN, HLD, Vertigo who presented to ER after an episode of syncope as per family member that they witnessed while the patient was in the [employer]. 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 is on the case. Consult Dr. Blaise Bess for pacemaker implant, Continue telemetry monitoring. Consider Holter possible pacemaker placement in am. NPO after midnight # Acute Iron deficiency anemia , will start the patient on Iron supplement 325mg with colace 100mg po bid. # Pre-diabetic , diabetic diet . start prediabetic diet post pacemaker placement. # Possible seizure as per neuro , started the patient on Keppra 250mg po bid . and EEG is done. #s/p Syncope x3 this past month as per patient's son ; will place the patient in tele. for possible arrhythmia, neuro 's group. # ARF improved , will place the patient back to lisinopril 10mg low dose since Blood pressure is on the low side will monitor, s/p IVF x 1 liter # Microcytic Anemia; Iron studies ; FOBT # Hyperglycemia R/o DM2; A1C; BGMs w/ SSI # Hx of HLD continue statin # Hx of CAD continue meds - # Hx of GERD continue PPI # DVT Prophylaxis :heparin SQ
--- NOTE | 2017-02-13 11:55 | CON.CARD ---
Consult Consult Specialty:: Cardiology Referred by:: Hospitalist Service Reason for Consultation:: Cardiac evaluation - History of Present Illness Chief Complaint: Dizziness, syncope History of Present Illness: Patient is an 82 year old female of descent with underlying history of hypertension, hypercholesterolemia, organic brain/mild dementia and multiple episodes of syncope with shaking and confusion afterwards suggestive of post- ictal phase of possible seizure, but it has not been documented. She complains of non-productive cough. She denies chest pain, shortness of breath or palpitations. She denies paroxysmal nocturnal dyspnea or orthopnea. Shed denies fever or chills at this time. She denies headache, but complains of intermittent dizziness, weakness and fatigue. online tutor reveals frequent episodes of blocked APCs, secondary AV block Mobitz 1 ([place]) and also 2:1 AV block suggestive of more advanced heart block. Cardiology consultation was called for further evaluation. 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 Cardio/Vascular: Yes: HTN, Hyperlipdemia Endocrine: No: Diabetes Mellitus - Past Surgical History Past Surgical History: Yes: Appendectomy, Cataract Removal, Hysterectomy - Alcohol/Substance Use Hx Alcohol Use: No - Smoking History Smoking history: Never smoked Have you smoked in the past 12 months: No Aproximately how many cigarettes per day: 0 Home Medications - Allergies Allergies/Adverse Reactions: Allergies Allergy/AdvReac Type Severity Reaction Status Date / Time No Known Allergies Allergy Verified 06/24/15 20:50 - Home Medications Home Medications: Ambulatory Orders Aspirin Coated [Ecotrin -] 1 tab PO DAILY 06/24/15 Atorvastatin Ca [Lipitor] 20 mg PO HS 06/24/15 Meclizine HCl 25 mg PO BID 06/24/15 Omeprazole [Prilosec] 20 mg PO DAILY 06/24/15 Lisinopril [Zestril] 40 mg PO DAILY 02/11/17 Levetiracetam [Keppra -] 500 mg PO BID #40 tablet 02/13/17 Family Disease History - Family Disease History Other Family History: History of diabetes mellitus Review of Systems - Review of Systems Constitutional: reports: Weakness. denies: Chills, Fever Cardiovascular: denies: Chest Pain, Palpitations, Shortness of Breath Respiratory: reports: Cough. denies: Hemoptysis, Orthopnea, PND, SOB, SOB on Exertion Gastrointestinal: denies: Abdominal Pain, Constipation, Diarrhea, Melena, Nausea , Rectal Bleeding, Vomiting Neurological: reports: Dizziness, Syncope, Weakness. denies: Headache, Seizure Vital Signs: Vital Signs Temperature 98.2 F 02/13/17 08:10 Pulse Rate 64 02/13/17 08:10 Respiratory Rate 16 02/13/17 10:32 Blood Pressure 108/68 02/13/17 08:10 O2 Sat by Pulse Oximetry (%) 95 02/13/17 10:32 Neck: Yes: Supple Respiratory: Yes: CTA Bilaterally Gastrointestinal: Yes: Normal Bowel Sounds, Soft. No: Tenderness Cardiovascular: Yes: Regular Rate and Rhythm JVD: No Carotid Bruit: No PMI: Non-Displaced Heart Sounds: Yes: S1, S2. No: Gallop Edema: No - Other Data Labs, Other Data: CBC, BMP 02/12/17 07:50 02/12/17 07:50 Laboratory Results - last 24 hr 02/11/17 02/12/17 02/13/17 16:54 17:30 05:35 POC Glucometer 102 Fasting Glucose 82 Hemoglobin A1c % Iron 16 L TIBC 342 Iron Saturation 5 L Triglycerides 125 D Cholesterol 145 Total LDL Cholesterol 86 HDL Cholesterol 43 TSH 1.69 Free T4 1.14 02/13/17 02/13/17 05:35 06:21 POC Glucometer 89 Fasting Glucose Hemoglobin A1c % 5.6 D Iron TIBC Iron Saturation Triglycerides Cholesterol Total LDL Cholesterol HDL Cholesterol TSH Free T4 Sinus bradycardia with 1st degree AV block, no ST-T abnormality Echo: Pending Imaging - Results Chest X-ray: Report Reviewed (Unremarkable) Cat Scan: Report Reviewed (Head CT unremarkable) Ultrasound: Report Reviewed (Carotid 50-69% right ICA) Other: Report Reviewed (Echocardiography - normal LV function, trace MR, mild to moderate TR, trace [place], mild pulmonary HTN) Problem List - Problems (1) Syncope Code(s): R55 - SYNCOPE AND COLLAPSE (2) Dementia Code(s): F03.90 - UNSPECIFIED DEMENTIA WITHOUT BEHAVIORAL DISTURBANCE Qualifiers: Alzheimer's disease onset: unspecified onset (3) HTN (hypertension) Code(s): I10 - ESSENTIAL (PRIMARY) HYPERTENSION Qualifiers: Hypertension type: essential hypertension Qualified Code(s): I10 - Essential (primary) hypertension (4) Hyperlipidemia Code(s): E78.5 - HYPERLIPIDEMIA, UNSPECIFIED Qualifiers: Hyperlipidemia type: pure hypercholesterolemia Qualified Code(s): E78.00 - Pure hypercholesterolemia, unspecified; E78.0 - Pure hypercholesterolemia (5) AV block, 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 - ATRIOVENTRICULAR BLOCK, SECOND DEGREE Assessment/Plan 1. Syncope +/- seizures, etiology to be determined. 2. 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 Hypertension 4. Hypercholesterolemia 5. Organic brain/mild dementia PLAN: 1. EEG was done and currently started on Keppra by Neurology 2. Transthoracic echocardiography was reviewed 3. 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 Consult Dr. Blaise Bess for pacemaker implant 4. Continue Ecotrin 5. Continue Lipitor 6. Continue telemetry monitoring. Consider Holter Further plans are to follow Dom Kelly MD
--- NOTE | 2017-02-13 12:59 | EKG ---
Test Reason : Blood Pressure : / mmHG Vent. Rate : 056 BPM Atrial Rate : 056 BPM P-R Int : 230 ms QRS Dur : 072 ms QT Int : 412 ms P-R-T Axes : 038 048 060 degrees QTc Int : 397 ms SINUS BRADYCARDIA WITH 1ST DEGREE A-V BLOCK LEFT ATRIAL ABNORMALITY WHEN COMPARED WITH ECG OF 12-FEB-2017 15:11, NO SIGNIFICANT CHANGE WAS FOUND REPEAT EKG IF CLINICALLY INDICATED Confirmed by FRANCISCO SANCHEZ MD ([id number]) on 02/13/2017 12:58:40 PM Referred By: Benigno CR Confirmed By:FRANCISCO SANCHEZ MD
--- NOTE | 2017-02-13 15:09 | PN ---
Physical Exam: SUBJECTIVE: Patient seen and examined at bedside. No acute events overnight. Pt has no complaints at this time. Denies headache, chest pain, shortness of breath , fever, dysuria. OBJECTIVE: Vital Signs Period Temp Pulse Resp BP Sys/Reyes Pulse Ox Last 24 Hr 99.6 F 68 20 109/62 GENERAL: The patient is awake, alert, and fully oriented, in no acute distress. HEAD: Normal with no signs of trauma. EYES: sclera anicteric, conjunctiva clear. No ptosis. ENT: oropharynx clear without exudates, moist mucous membranes. NECK: Trachea midline, full range of motion, supple. LUNGS: Breath sounds equal, clear to auscultation bilaterally, no wheezes, no crackles, no accessory muscle use. HEART: Regular rate and rhythm, S1, S2 without murmur, rub or gallop. ABDOMEN: Soft, nontender, nondistended, normoactive bowel sounds, no guarding, no rebound, no hepatosplenomegaly, no masses. EXTREMITIES: 2+ pulses, warm, well-perfused, no edema. NEUROLOGICAL: Cranial nerves II through XII grossly intact. Normal speech, gait not observed. PSYCH: Normal mood, normal affect. SKIN: Warm, dry, normal turgor, no rashes or lesions noted Active Medications Generic Name Dose Route Start Last Admin Trade Name Freq PRN Reason Stop Dose Admin Aspirin 81 mg 02/12/17 10:00 02/13/17 09:01 Ecotrin - PO 81 mg DAILY ALBINO Administration Atorvastatin Calcium 20 mg 02/11/17 22:00 02/12/17 22:29 Lipitor - PO 20 mg HS ALBINO Administration Docusate Sodium 100 mg 02/13/17 22:00 Colace - PO BID ALBINO Ferrous Sulfate 325 mg 02/13/17 22:00 Feosol - PO BID ALBINO Guaifenesin 10 ml 02/12/17 21:36 02/13/17 09:01 Robitussin - PO 10 ml Q6H PRN Administration COUGH Heparin Sodium (Porcine) 5,000 unit 02/12/17 22:00 02/13/17 09:01 Heparin - SQ 5,000 unit BID [facility] Administration Sodium Chloride 1,000 mls @ 75 mls/hr 02/12/17 08:00 02/12/17 18:00 Normal Saline - IV 08/22/17 21:19 75 mls/hr ASDIR [facility] Administration Insulin Aspart 1 vial 02/12/17 07:00 02/13/17 06:31 Novolog Vial Sliding Scale - SQ Not Given [facility] Protocol Levetiracetam 250 mg 02/12/17 22:00 02/13/17 09:01 Keppra - PO 250 mg BID [facility] Administration Pantoprazole Sodium 20 mg 02/12/17 10:00 02/13/17 09:00 Protonix Packets For Oral Suspension - PO 20 mg DAILY [facility] Administration ASSESSMENT/PLAN: Mrs. Abraham is a 82yo F with HTN, HLD, Vertigo who presented to ER after an episode of syncope, witnessed by family. Endorses low PO intake. # Syncope - Likely secondary to dehydration - Noncon Head CT negative - Orthostatic vitals negative - per vascular surg Carotid dopplers show <20% stenosis - UA+UCx pending - Echo shows normal LV -Per Cardio, pt may need permanent pacemaker implant due to mult syncople episodes and second deg block on monitor. Consult to EP placed by Cardio # Acute Kidney Injury resolved - Likely from dehydration - Cr 0.8 # Microcytic Anemia - Iron studies show Fe-defic anemia - Fe sulfate supplement - FOBT # Hyperglycemia - A1C - 6.1 - BGMs w/ SSI # Hx of HLD - Continue statin # Hx of CAD - Continue ASA # Hx of GERD - Continue PPI # FEN - Fluids: IVNS 75cc/hr - Electrolytes: No abnormalities - Nutrition: Sodium controlled diet # Prophylaxis - DVT: Heparin SQ BID - GI: Not indicated - Deconditioning: Pt ordered # Dispo - Obs in Tele for cardiac monitoring - Await Neuro reccs Justin Edwards MD PGY-1 Visit type - Emergency Visit Emergency Visit: No - New Patient This patient is new to me today: No - Critical Care Critical Care patient: No - Discharge Referral Referred to [facility] Med P.C.: No
[2017-02-13] MEDS ORDERED: SODIUM CHLORIDE 1,000 ML IV STA (15:10)
[2017-02-13] MEDS: SODIUM CHLORIDE 0.45% 1,000 ML IV SCH (15:30)
--- NOTE | 2017-02-13 20:29 | CON.CARD ---
Consult Consult Specialty:: EPS Referred by:: Dr. Dom Kelly Reason for Consultation:: Second degree AVB - History of Present Illness Chief Complaint: Syncope History of Present Illness: Ms. Abraham is a pleasant 82 year old female with a pmh of hypertension, hyperlipidemia, dementia who presented s/p a syncopal event. The patient reportedly had another syncopal event in the ER that was not captured. She has been monitored on telemetry with findings of Mobitz I, prolonged AV delay and blocked APC's. She was seen and evaluated in the presence of her family. There have been multiple witnessed event in the past 3 years. Events are usually preceded by feeling lightheaded. She denies any chest pain, dyspnea or palpitations. Ultrasound: Report Reviewed (Carotid 50-69% right ICA) Echocardiography - normal LV function, trace MR, mild to moderate TR, trace [place], mild pulmonary HTN EEG done, results pending - History Source History Provided By: Patient, Family Member Limitations to Obtaining History: Dementia - Past Medical History DELIVERY AND [employer]ST[employer]ATION [employer]: Yes: Dementia Cardio/Vascular: Yes: HTN, Hyperlipdemia Endocrine: No: Diabetes Mellitus - Past Surgical History Past Surgical History: Yes: Appendectomy, Cataract Removal, Hysterectomy - Alcohol/Substance Use Hx Alcohol Use: No - Smoking History Smoking history: Never smoked Have you smoked in the past 12 months: No Aproximately how many cigarettes per day: 0 Home Medications - Allergies Allergies/Adverse Reactions: Allergies Allergy/AdvReac Type Severity Reaction Status Date / Time No Known Allergies Allergy Verified 06/24/15 20:50 - Home Medications Home Medications: Ambulatory Orders Aspirin Coated [Ecotrin -] 1 tab PO DAILY 06/24/15 Atorvastatin Ca [Lipitor] 20 mg PO HS 06/24/15 Meclizine HCl 25 mg PO BID 06/24/15 Omeprazole [Prilosec] 20 mg PO DAILY 06/24/15 Lisinopril [Zestril] 40 mg PO DAILY 02/11/17 Levetiracetam [Keppra -] 500 mg PO BID #40 tablet 02/13/17 Family Disease History - Family Disease History Family History: Unremarkable Other Family History: History of diabetes mellitus Review of Systems - Review of Systems Constitutional: denies: Chills, Fever Cardiovascular: reports: Other (syncope) Respiratory: reports: Cough Gastrointestinal: reports: No Symptoms Musculoskeletal: reports: No Symptoms Neurological: reports: Syncope Vital Signs: Vital Signs Temperature 99.1 F 02/13/17 17:00 Pulse Rate 63 02/13/17 17:00 Respiratory Rate 20 02/13/17 17:00 Blood Pressure 106/64 02/13/17 17:00 O2 Sat by Pulse Oximetry (%) 95 02/13/17 10:32 Constitutional: Yes: Well Nourished, No Distress HENT: Yes: WNL Respiratory: Yes: CTA Bilaterally Gastrointestinal: Yes: WNL Cardiovascular: Yes: WNL, Regular Rate and Rhythm Musculoskeletal: Yes: WNL Extremities: Yes: WNL Edema: No - Other Data narrow complex, sinus, prolonged av delay Echo: Report Reviewed Ejection Fraction %: LVEF > or = 40 % Imaging - Results Chest X-ray: Image Reviewed EKG: Image Reviewed Problem List - Problems (1) AV block, 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 - ATRIOVENTRICULAR BLOCK, SECOND DEGREE (2) Syncope Code(s): R55 - SYNCOPE AND COLLAPSE (3) Dementia Code(s): F03.90 - UNSPECIFIED DEMENTIA WITHOUT BEHAVIORAL DISTURBANCE Qualifiers: Alzheimer's disease onset: unspecified onset (4) HTN (hypertension) Code(s): I10 - ESSENTIAL (PRIMARY) HYPERTENSION Qualifiers: Hypertension type: essential hypertension Qualified Code(s): I10 - Essential (primary) hypertension (5) Hyperlipidemia Code(s): E78.5 - HYPERLIPIDEMIA, UNSPECIFIED Qualifiers: Hyperlipidemia type: pure hypercholesterolemia Qualified Code(s): E78.00 - Pure hypercholesterolemia, unspecified; E78.0 - Pure hypercholesterolemia Assessment/Plan 02/13/2017: JVD EPS: telemetry and ekg reviewed. high degree av block has not been observed. pt with wenkebach, blocked apc's and prolonged av delay. 2-1 AV block has been noted without symptoms and with a narrow complex rhythm. normal LV function on echo. carotid findings would not explain sx. eeg done, results pending. no indication for ppm implant at this time. extensive conversation with the patient and family regarding monitoring techniques. all questions answered. they prefer implantable monitoring over wearable monitoring due to pt's dementia and ease of care. - will schedule for ILR implant pending approval - hold heparin - avoid av maki blocking agents - f/u eeg - keep k 4-4.5, mg 2-2.5 - care as per cardiology, primary services Thank you for allowing me to participate in the care of this patient. Please call with any questions. Blaise Bess MD [phone]
[2017-02-13] MEDS: FERROUS SO4 325 MG TABLET (FP) PO SCH (22:49)
[2017-02-13] MEDS: DOCUSATE SODIUM 100 MG CAPSULE (FP) PO SCH (22:49)
[2017-02-13] MEDS: ATORVASTATIN CA 20 MG TABLET (FP) PO SCH (22:49)
[2017-02-14 07:29] LABS: BASOPHIL 0.7 % (0-2.0); EOSINOPHIL 1.4 % (0-4.5); MCH 23.7 pg (25.7-33.7); MCHC 31.2 g/dl (32.0-36.0); MEAN CELL VOLUME 75.9 fl (80-96); MEAN PLT VOLUME 7.7 fl (7.5-11.1); NEUTROPHILS 66.2 % (42.8-82.8); PLATELET COUNT 307 K/MM3 (134-434); RDW 18.2 % (11.6-15.6); WHITE BLOOD COUNT 9.2 K/mm3 (4.0-10.0)
[2017-02-14 08:14] LABS: ANION GAP 9 (8-16); CALCIUM 8.5 mg/dL (8.5-10.1); CO2 27 mmol/L (21-32); GLUCOSE,RANDOM 82 mg/dL (74-106)
[2017-02-14 08:15] LABS: CREATININE 0.8 mg/dL (0.55-1.02)
[2017-02-14] MEDS: FERROUS SO4 325 MG TABLET (FP) PO SCH ×2 (10:23→22:24)
[2017-02-14] MEDS: LISINOPRIL 10 MG TABLET (FP) PO SCH (10:23)
[2017-02-14] MEDS: DOCUSATE SODIUM 100 MG CAPSULE (FP) PO SCH ×2 (10:23→22:23)
[2017-02-14] MEDS: ASPIRIN COATED 81 MG TABLET.EC PO SCH (10:23)
[2017-02-14] MEDS: PANTOPRAZOLE SOD 40 MG SUSPENSION PACKET PO SCH (10:23)
[2017-02-14] MEDS: levETIRAcetam 250 MG TABLET (FP) PO SCH ×2 (10:23→22:23)
[2017-02-14] MEDS: HEPARIN NA (PORCINE) 5,000 UNITS/ML 1ML VIAL SQ SCH ×2 (10:24→22:24)
[2017-02-14] MEDS: guaiFENesin 200 MG/10 ML 10 ML UNIT-DOSE CUPS PO PRN ×2 (10:31→17:58)
--- NOTE | 2017-02-14 11:49 | PN ---
Progress Note, Physician History of Present Illness: No further near or true syncope or seizures. - Current Medication List Current Medications: Active Medications Aspirin (Ecotrin -) 81 mg PO DAILY [facility] Last Admin: 02/14/17 10:23 Dose: 81 mg Atorvastatin Calcium (Lipitor -) 20 mg PO HS [facility] Last Admin: 02/13/17 22:49 Dose: 20 mg Docusate Sodium (Colace -) 100 mg PO BID [facility] Last Admin: 02/14/17 10:23 Dose: 100 mg Ferrous Sulfate (Feosol -) 325 mg PO BID [facility] Last Admin: 02/14/17 10:23 Dose: 325 mg Guaifenesin (Robitussin -) 10 ml PO Q6H PRN PRN Reason: COUGH Last Admin: 02/14/17 10:31 Dose: 10 ml Heparin Sodium (Porcine) (Heparin -) 5,000 unit SQ BID [facility] Last Admin: 02/14/17 10:24 Dose: 5,000 unit Sodium Chloride (1/2 Normal Saline) 1,000 mls @ 75 mls/hr IV ASDIR [facility] Last Admin: 02/13/17 15:30 Dose: 75 mls/hr Insulin Aspart (Novolog Vial Sliding Scale -) 1 vial SQ BIDAC [facility] PRN Reason: Protocol Last Admin: 02/13/17 17:37 Dose: Not Given Levetiracetam (Keppra -) 250 mg PO BID [facility] Last Admin: 02/14/17 10:23 Dose: 250 mg Lisinopril (Prinivil) 10 mg PO DAILY [facility] Last Admin: 02/14/17 10:23 Dose: 10 mg Pantoprazole Sodium (Protonix Packets For Oral Suspension -) 20 mg PO DAILY [facility] Last Admin: 02/14/17 10:23 Dose: 20 mg - Objective Vital Signs: Vital Signs Temperature 98.3 F 02/14/17 09:00 Pulse Rate 70 02/14/17 09:00 Respiratory Rate 20 02/14/17 09:00 Blood Pressure 106/55 02/14/17 09:00 O2 Sat by Pulse Oximetry (%) 95 02/13/17 22:00 Constitutional: Yes: No Distress, Calm Neck: Yes: Supple Cardiovascular: Yes: Regular Rate and Rhythm Respiratory: Yes: Regular, Diminished Gastrointestinal: Yes: Normal Bowel Sounds, Soft, Abdomen, Obese Edema: No Labs: CBC, BMP 02/14/17 06:00 02/14/17 05:35 - ....Imaging EKG: Report Reviewed (Mobitz I, prolonged AV delay and blocked APC's) Problem List - Problems (1) AV block, 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 - ATRIOVENTRICULAR BLOCK, SECOND DEGREE (2) Syncope Code(s): R55 - SYNCOPE AND COLLAPSE Qualifiers: Encounter type: subsequent encounter (3) Dementia Code(s): F03.90 - UNSPECIFIED DEMENTIA WITHOUT BEHAVIORAL DISTURBANCE Qualifiers: Alzheimer's disease onset: unspecified onset (4) HTN (hypertension) Code(s): I10 - ESSENTIAL (PRIMARY) HYPERTENSION Qualifiers: Hypertension type: essential hypertension Qualified Code(s): I10 - Essential (primary) hypertension (5) Hyperlipidemia Code(s): E78.5 - HYPERLIPIDEMIA, UNSPECIFIED Qualifiers: Hyperlipidemia type: pure hypercholesterolemia Qualified Code(s): E78.00 - Pure hypercholesterolemia, unspecified; E78.0 - Pure hypercholesterolemia (6) Seizure disorder Code(s): G40.909 - EPILEPSY, UNSP, NOT INTRACTABLE, WITHOUT STATUS EPILEPTICUS Assessment/Plan Ultrasound: Report Reviewed (Carotid 50-69% right ICA) Echocardiography - normal LV function, trace MR, mild to moderate TR, trace [place], mild pulmonary HTN EEG done, results pending 1. Syncope +/- seizures, etiology to be determined. 2. 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 Hypertension 4. Hypercholesterolemia 5. Organic brain/mild dementia PLAN: 1. EEG was done and currently started on Keppra by Neurology 2. Appreciate EP input, not PPM candidate at this time, but would benefit from ILR surveillance, Dr. Blaise Bess to implant 3. Continue Ecotrin 81 qd, Lipitor 20 qhs and lisinopril 10 qd 4. Continue telemetry monitoring, avoid AV maki blocking agents
--- NOTE | 2017-02-14 14:20 | PN ---
Teaching Attending Note Name of Resident: Justin Edwards ATTENDING PHYSICIAN STATEMENT I saw and evaluated the patient. I reviewed the resident's note and discussed the case with the resident. I agree with the resident's findings and plan as documented. SUBJECTIVE: Patient feels weak and fatigued. OBJECTIVE: Vital Signs Period Temp Pulse Resp BP Sys/Reyes Pulse Ox Last 24 Hr 98 F-99.1 F 63-75 20-20 105-110/55-64 95 HEART: S1S2, RRR LUNGS: Clear ABDOMEN: Soft, non-tender, non-distended, normal BS EXTREMITIES: No edema ASSESSMENT AND PLAN: This is an 82 year old woman with a history of CAD, HTN, hyperlipidemia, GERD, dementia, vertigo who presented to the ER after family witnessed her to pass out in mormonism. 1. Reucrrent syncope - 2nd degree AV block type I, but no high grade block, found - EP consult appreciated - Plan for implantable loop recorder tomorrow - Continue Keppra for possible seizure 2. Iron deficiency anemia - Hemoglobin stable - Continue ferrous sulfate 3. HTN - Continue Lisinopril 4. Hyperlipidemia - Continue Lipitor 5. CAD - Continue aspirin, Lipitor 6. GERD - Continue Protonix 7. Acute kidney injury - Resolved
--- NOTE | 2017-02-14 16:33 | PN ---
Physical Exam: SUBJECTIVE: Patient seen and examined at bedside. Per pt's family, pt is to go for loop recorder implantation tomorrow. OBJECTIVE: Vital Signs Period Temp Pulse Resp BP Sys/Reyes Pulse Ox Last 24 Hr 98 F-99.1 F 63-75 20-20 105-110/55-64 95 GENERAL: The patient is awake, alert, and fully oriented, in no acute distress. HEAD: Normal with no signs of trauma. EYES: sclera anicteric, conjunctiva clear. No ptosis. ENT: oropharynx clear without exudates, moist mucous membranes. NECK: Trachea midline, full range of motion, supple. LUNGS: Breath sounds equal, clear to auscultation bilaterally, no wheezes, no crackles, no accessory muscle use. HEART: Regular rate and rhythm, S1, S2 without murmur, rub or gallop. ABDOMEN: Soft, nontender, nondistended, normoactive bowel sounds, no guarding, no rebound, no hepatosplenomegaly, no masses. EXTREMITIES: 2+ pulses, warm, well-perfused, no edema. NEUROLOGICAL: Cranial nerves II through XII grossly intact. Normal speech, gait not observed. PSYCH: Normal mood, normal affect. SKIN: Warm, dry, normal turgor, no rashes or lesions noted Laboratory Results - last 24 hr 02/13/17 02/14/17 02/14/17 17:36 05:35 05:35 WBC RBC Hgb Hct MCV MCH MCHC RDW Plt Count MPV Neutrophils % Lymphocytes % Monocytes % Eosinophils % Basophils % Sodium 143 Potassium 3.9 Chloride 107 Carbon Dioxide 27 Anion Gap 9 BUN 13 Creatinine 0.8 POC Glucometer 97 Random Glucose 82 Calcium 8.5 Magnesium 2.2 02/14/17 02/14/17 02/14/17 06:00 06:19 15:32 WBC 9.2 D RBC 3.85 Hgb 9.1 L Hct 29.3 L MCV 75.9 L MCH 23.7 L MCHC 31.2 L RDW 18.2 H Plt Count 307 MPV 7.7 Neutrophils % 66.2 D Lymphocytes % 18.6 D Monocytes % 13.1 H Eosinophils % 1.4 D Basophils % 0.7 Sodium Potassium Chloride Carbon Dioxide Anion Gap BUN Creatinine POC Glucometer 88 113 Random Glucose Calcium Magnesium Active Medications Generic Name Dose Route Start Last Admin Trade Name Freq PRN Reason Stop Dose Admin Aspirin 81 mg 02/12/17 10:00 02/14/17 10:23 Ecotrin - PO 81 mg DAILY ALBINO Administration Atorvastatin Calcium 20 mg 02/11/17 22:00 02/13/17 22:49 Lipitor - PO 20 mg HS ALBINO Administration Docusate Sodium 100 mg 02/13/17 22:00 02/14/17 10:23 Colace - PO 100 mg BID ALBINO Administration Ferrous Sulfate 325 mg 02/13/17 22:00 02/14/17 10:23 Feosol - PO 325 mg BID [facility]BINO Administration Guaifenesin 10 ml 02/12/17 21:36 02/14/17 10:31 Robitussin - PO 10 ml Q6H PRN Administration COUGH Heparin Sodium (Porcine) 5,000 unit 02/12/17 22:00 02/14/17 10:24 Heparin - SQ 5,000 unit BID [facility] Administration Sodium Chloride 1,000 mls @ 75 mls/hr 02/13/17 15:15 02/13/17 15:30 1/2 Normal Saline IV 75 mls/hr ASDIR [facility] Administration Insulin Aspart 1 vial 02/12/17 07:00 02/13/17 17:37 Novolog Vial Sliding Scale - SQ Not Given BIDAC [facility] Protocol Levetiracetam 250 mg 02/12/17 22:00 02/14/17 10:23 Keppra - PO 250 mg BID [facility] Administration Lisinopril 10 mg 02/14/17 10:00 02/14/17 10:23 Prinivil PO 10 mg DAILY [facility] Administration Pantoprazole Sodium 20 mg 02/12/17 10:00 02/14/17 10:23 Protonix Packets For Oral Suspension - PO 20 mg DAILY [facility] Administration ASSESSMENT/PLAN: Mrs. Abraham is a 82yo F with HTN, HLD, Vertigo who presented to ER after an episode of syncope, witnessed by family. Pt's family states she has low PO intake. # Syncope - Likely secondary to dehydration - Noncon Head CT negative - Orthostatic vitals negative - per vascular surg Carotid dopplers show <20% stenosis - UA+UCx pending - Echo shows normal LV -Per Cardio, pt will have loop recorder placed tomorrow # Acute Kidney Injury resolved - Likely from dehydration - Cr 0.8 # Microcytic Anemia - Iron studies show Fe-defic anemia - Fe sulfate supplement - FOBT # Hyperglycemia - A1C - 6.1 - BGMs w/ SSI # Hx of HLD - Continue statin # Hx of CAD - Continue ASA # Hx of GERD - Continue PPI # FEN -not on fluids -lytes wnl -Sodium controlled diet # Prophylaxis - DVT: Heparin SQ BID - GI: Not indicated - Deconditioning: Pt ordered # Dispo - Obs in Tele for cardiac monitoring - Await Neuro reccs Justin Edwards MD PGY-1 Visit type - Emergency Visit Emergency Visit: No - New Patient This patient is new to me today: No - Critical Care Critical Care patient: No - Discharge Referral Referred to [facility] Med P.C.: No
[2017-02-14] MEDS: SODIUM CHLORIDE 0.45% 1,000 ML IV SCH (17:59)
[2017-02-14] MEDS: ATORVASTATIN CA 20 MG TABLET (FP) PO SCH (22:23)
[2017-02-15] MEDS: INSULIN SLIDING SCALE (NOVOLOG) 1 VIAL SQ SCH ×2 (06:33→17:37)
[2017-02-15] MEDS ORDERED: LIDOCAINE HCL 1%, 10 MG/ML (20ML VIAL) ONE (07:25)
[2017-02-15 08:16] LABS: BASOPHIL 1.1 % (0-2.0); EOSINOPHIL 2.1 % (0-4.5); MCH 23.8 pg (25.7-33.7); MCHC 31.1 g/dl (32.0-36.0); MEAN CELL VOLUME 76.4 fl (80-96); MEAN PLT VOLUME 7.9 fl (7.5-11.1); NEUTROPHILS 66.8 % (42.8-82.8); PLATELET COUNT 312 K/MM3 (134-434); RDW 17.9 % (11.6-15.6); WHITE BLOOD COUNT 9.1 K/mm3 (4.0-10.0)
[2017-02-15 08:22] LABS: INR 1.18 (0.82-1.09)
[2017-02-15] MEDS ORDERED: LIDOCAINE 2%/EPINEPHRINE 1:100000 (50 ML MD VIAL) INF ONE (08:43)
[2017-02-15 08:45] LABS: ANION GAP 6 (8-16); CALCIUM 8.7 mg/dL (8.5-10.1); CO2 29 mmol/L (21-32); CREATININE 0.9 mg/dL (0.55-1.02); GLUCOSE,RANDOM 85 mg/dL (74-106); MAGNESIUM 2.3 mg/dL (1.8-2.4)
[2017-02-15 08:53] LABS: THYROID STIMULATING HORMONE 1.03 uIU/ml (0.358-3.74)
--- NOTE | 2017-02-15 08:58 | OP ---
Operative Note - Note: Operative Date: 02/15/17 Pre-Operative Diagnosis: syncope Operation: implantable loop recorder implant Surgeon: Blaise Bess V Anesthesia: Local Estimated Blood Loss (mls): 1 Operative Report Dictated: Yes
[2017-02-15] MEDS: guaiFENesin 200 MG/10 ML 10 ML UNIT-DOSE CUPS PO PRN ×2 (10:08→21:51)
[2017-02-15] MEDS: PANTOPRAZOLE SOD 40 MG SUSPENSION PACKET PO SCH (10:08)
[2017-02-15] MEDS: levETIRAcetam 250 MG TABLET (FP) PO SCH ×2 (10:08→21:51)
[2017-02-15] MEDS: ASPIRIN COATED 81 MG TABLET.EC PO SCH (10:09)
[2017-02-15] MEDS: FERROUS SO4 325 MG TABLET (FP) PO SCH ×2 (10:09→21:51)
[2017-02-15] MEDS: LISINOPRIL 10 MG TABLET (FP) PO SCH (10:09)
[2017-02-15] MEDS: DOCUSATE SODIUM 100 MG CAPSULE (FP) PO SCH ×2 (10:09→21:52)
--- NOTE | 2017-02-15 11:09 | PN ---
Progress Note, Physician History of Present Illness: No further near or true syncope or seizures. s/p ILR in AM. - Current Medication List Current Medications: Active Medications Aspirin (Ecotrin -) 81 mg PO DAILY [facility] Last Admin: 02/15/17 10:09 Dose: 81 mg Atorvastatin Calcium (Lipitor -) 20 mg PO HS [facility] Last Admin: 02/14/17 22:23 Dose: 20 mg Docusate Sodium (Colace -) 100 mg PO BID [facility] Last Admin: 02/15/17 10:09 Dose: 100 mg Ferrous Sulfate (Feosol -) 325 mg PO BID [facility] Last Admin: 02/15/17 10:09 Dose: 325 mg Guaifenesin (Robitussin -) 10 ml PO Q6H PRN PRN Reason: COUGH Last Admin: 02/15/17 10:08 Dose: 10 ml Heparin Sodium (Porcine) (Heparin -) 5,000 unit SQ BID [facility] Last Admin: 02/14/17 22:24 Dose: 5,000 unit Insulin Aspart ([facility]olog Vial Sliding Scale -) [facility]: Protocol Last Admin: 02/15/17 06:33 Dose: Not Given Levetiracetam (Keppra -) 250 mg PO BID [facility] Last Admin: 02/15/17 10:08 Dose: 250 mg Lisinopril (Prinivil) 10 mg PO DAILY [facility] Last Admin: 02/15/17 10:09 Dose: 10 mg Pantoprazole Sodium (Protonix Packets For Oral Suspension -) 20 mg PO DAILY [facility] Last Admin: 02/15/17 10:08 Dose: 20 mg - Objective Vital Signs: Vital Signs Temperature 98.2 F 02/15/17 07:45 Pulse Rate 82 02/15/17 09:30 Respiratory Rate 14 02/15/17 09:30 Blood Pressure 124/68 02/15/17 09:30 O2 Sat by Pulse Oximetry (%) 100 02/15/17 08:52 Constitutional: Yes: No Distress, Calm Neck: Yes: Supple Cardiovascular: Yes: Regular Rate and Rhythm Respiratory: Yes: Regular, CTA Bilaterally, On Nasal O2 Gastrointestinal: Yes: Soft, Hypoactive Bowel Sounds Edema: No Labs: CBC, BMP 02/15/17 06:40 02/15/17 06:40 INR, PTT INR 1.18 (0.82-1.09) H 02/15/17 06:40 - ....Imaging EKG: Report Reviewed (Tele: SR 2nd deg AVB) Problem List - Problems (1) AV block, 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 - ATRIOVENTRICULAR BLOCK, SECOND DEGREE (2) Syncope Code(s): R55 - SYNCOPE AND COLLAPSE Qualifiers: Encounter type: subsequent encounter (3) Dementia Code(s): F03.90 - UNSPECIFIED DEMENTIA WITHOUT BEHAVIORAL DISTURBANCE Qualifiers: Alzheimer's disease onset: unspecified onset (4) HTN (hypertension) Code(s): I10 - ESSENTIAL (PRIMARY) HYPERTENSION Qualifiers: Hypertension type: essential hypertension Qualified Code(s): I10 - Essential (primary) hypertension (5) Hyperlipidemia Code(s): E78.5 - HYPERLIPIDEMIA, UNSPECIFIED Qualifiers: Hyperlipidemia type: pure hypercholesterolemia Qualified Code(s): E78.00 - Pure hypercholesterolemia, unspecified; E78.0 - Pure hypercholesterolemia (6) Seizure disorder Code(s): G40.909 - EPILEPSY, UNSP, NOT INTRACTABLE, WITHOUT STATUS EPILEPTICUS (7) Status post placement of implantable loop recorder Code(s): Z95.818 - PRESENCE OF OTHER CARDIAC IMPLANTS AND GRAFTS Assessment/Plan Ultrasound: Report Reviewed (Carotid 50-69% right ICA) Echocardiography - normal LV function, trace MR, mild to moderate TR, trace [place], mild pulmonary HTN EEG done, results pending 1. Syncope +/- seizures, post implantable loop recorder, etiology to be determined 2. 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 Hypertension 4. Hypercholesterolemia 5. Organic brain/mild dementia PLAN: 1. EEG was done and currently started on Keppra by Neurology 2. Continue Ecotrin 81 qd, Lipitor 20 qhs and lisinopril 10 qd 3. Continue telemetry monitoring, avoid AV maki blocking agents, d/c planning
[2017-02-15] MEDS: HEPARIN NA (PORCINE) 5,000 UNITS/ML 1ML VIAL SQ SCH ×2 (12:10→21:55)
--- NOTE | 2017-02-15 13:42 | DS ---
Physical Exam: SUBJECTIVE: Patient seen and examined at bedside. Pt went for implantable loop recorder today. Pt has no complaints at this time. Denies nausea, vomiting, diarrhea, fever. OBJECTIVE: Vital Signs Period Temp Pulse Resp BP Sys/Reyes Pulse Ox Last 24 Hr 98.2 F-99.2 F 69-86 14-20 98-128/57-69 95-100 PHYSICAL EXAM GENERAL: The patient is awake, alert, and fully oriented, in no acute distress. HEAD: Normal with no signs of trauma. EYES: sclera anicteric, conjunctiva clear. No ptosis. ENT: oropharynx clear without exudates, moist mucous membranes. NECK: Trachea midline, full range of motion, supple. LUNGS: Breath sounds equal, clear to auscultation bilaterally, no wheezes, no crackles, no accessory muscle use. HEART: Regular rate and rhythm, S1, S2 without murmur, rub or gallop. ABDOMEN: Soft, nontender, nondistended, normoactive bowel sounds, no guarding, no rebound, no hepatosplenomegaly, no masses. EXTREMITIES: 2+ pulses, warm, well-perfused, no edema. NEUROLOGICAL: Cranial nerves II through XII grossly intact. Normal speech, gait not observed. PSYCH: Normal mood, normal affect. SKIN: Warm, dry, normal turgor, no rashes or lesions noted LABS Laboratory Results - last 24 hr 02/14/17 02/15/17 02/15/17 15:32 06:07 06:40 WBC RBC Hgb Hct MCV MCH MCHC RDW Plt Count MPV Neutrophils % Lymphocytes % Monocytes % Eosinophils % Basophils % INR PTT (Actin FS) Sodium 144 Potassium 4.0 Chloride 109 H Carbon Dioxide 29 Anion Gap 6 L BUN 13 Creatinine 0.9 POC Glucometer 113 102 Random Glucose 85 Calcium 8.7 Magnesium 2.3 TSH 1.03 D Free T4 02/15/17 02/15/17 02/15/17 06:40 06:40 06:40 WBC 9.1 RBC 3.86 Hgb 9.2 L Hct 29.5 L MCV 76.4 L MCH 23.8 L MCHC 31.1 L RDW 17.9 H Plt Count 312 MPV 7.9 Neutrophils % 66.8 Lymphocytes % 18.3 Monocytes % 11.7 H Eosinophils % 2.1 Basophils % 1.1 INR 1.18 H PTT (Actin FS) Sodium Potassium Chloride Carbon Dioxide Anion Gap BUN Creatinine POC Glucometer Random Glucose Calcium Magnesium TSH Free T4 1.23 D 02/15/17 06:40 WBC RBC Hgb Hct MCV MCH MCHC RDW Plt Count MPV Neutrophils % Lymphocytes % Monocytes % Eosinophils % Basophils % INR PTT (Actin FS) 43.6 H Sodium Potassium Chloride Carbon Dioxide Anion Gap BUN Creatinine POC Glucometer Random Glucose Calcium Magnesium TSH Free T4 HOSPITAL COURSE: Date of Admission:02/13/17 Date of Discharge: 02/15/17 Mrs. Abraham is an 82yo F with HTN, HLD, Vertigo who presented to ER after an episode of syncope, witnessed by family. Pt's family states she has low PO intake. Possible etiology for her symptoms includes arrhythmia, vasovagal, seizure disorder. Pt had a noncon head CT, which was negative. Pt had negative orthostatics. Carotid duplex were assessed as <20% by vascular surgery. Pt had negative cultures and an unremarkable echo. Pt's monitor and EKG revealed 1st deg block, periords of 2:1 block, and blocked PACs. Pt had an implantable loop recorder placed, and will follow up with cardio out pt. For her possible seizure disorder, which may be co-ocurring with syncope/presyncope, the patient was placed on Keppra 500, to be increased to 500 BID on d/c. Pt will follow up with neurology (Dr. Eddy) as an out pt. Pt came in with FLASH, which resolved promptly with IVF. Pt had microcytic anemia. Iron studies revealed iron-deficiency, so the patient was given iron supplement. Pt was found to be hyperglycemic. A1C was 6.1%. Pt was given instructions to modify diet follow up with PCP. HLD, GERD, and Hx CAD were managed with home medications. 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 Eddy) as well as your braille typist (Dr. Whitney). You need to follow up on your EEG with Dr. Eddy as an out patient. You need to follow up on your loop recorder with Dr. Whitney as an out patient. Please take all your prescription medications as directed. Your blood sugar was slightly elevated. You need to follow up on this with your primary care doctor. In the meantime, you should try and improve your diet. Avoid eating sugar, and try to make sure you eat lean protein and vegetables. If your symptoms get worse or if you develop new symptoms, please return to the Emergency Department. Referrals: STAFF,NOT ON [Primary Care Provider] - 1 Week Edgar Eddy MD [Staff Physician] - Damian Whitney MD [Staff Physician] - Disposition: HOME - Home Medications Comprehensive Discharge Medication List: Ambulatory Orders Aspirin Coated [Ecotrin -] 1 tab PO DAILY 06/24/15 Atorvastatin Ca [Lipitor] 20 mg PO HS 06/24/15 Meclizine HCl 25 mg PO BID 06/24/15 Omeprazole [Prilosec] 20 mg PO DAILY 06/24/15 Lisinopril [Zestril] 40 mg PO DAILY 02/11/17 Levetiracetam [Keppra -] 500 mg PO BID #40 tablet 02/13/17 Lisinopril [Prinivil] 10 mg PO DAILY tablet 02/15/17 - Discharge Referral Referred to [facility] Med P.C.: No
--- NOTE | 2017-02-15 14:39 | PN ---
Teaching Attending Note Name of Resident: Justin Edwards ATTENDING PHYSICIAN STATEMENT I saw and evaluated the patient. I reviewed the resident's note and discussed the case with the resident. I agree with the resident's findings and plan as documented. SUBJECTIVE: Patient complains of dry cough. OBJECTIVE: Vital Signs Period Temp Pulse Resp BP Sys/Reyes Pulse Ox Last 24 Hr 98.2 F-99.2 F 69-86 14-20 98-128/57-69 95-100 HEART: S1S2, RRR LUNGS: Clear ABDOMEN: Soft, non-tender, non-distended, normal BS EXTREMITIES: No edema ASSESSMENT AND PLAN: This is an 82 year old woman with a history of CAD, HTN, hyperlipidemia, GERD, dementia, vertigo who presented to the ER after family witnessed her to pass out in gnosticist. 1. 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 Iron deficiency anemia - Hemoglobin stable - Continue ferrous sulfate 3. HTN - Continue Lisinopril 4. Hyperlipidemia - Continue Lipitor 5. CAD - Continue aspirin, Lipitor 6. GERD - Continue Protonix 7. Acute kidney injury - Resolved
[2017-02-15] MEDS ORDERED: ACETAMINOPHEN 325 MG TABLET (FP) PO ONE (15:11)
--- NOTE | 2017-02-15 15:14 | HOSP ---
Subjective - Review of Symptoms Events since last encounter: After pt was discharged, family tried to get her up and out of bed. At that point, pt stated she felt unwell. She complained of chills and body aches. Vital signs were significant for temp 100.6. No tachycardia, no tachypnea. Pt had a clear CXR yesterday and had no leukocytosis this morning. Will monitor for improvement. Physical Examination Vital Signs: Vital Signs Temperature 100.6 F H 02/15/17 15:06 Pulse Rate 84 02/15/17 15:06 Respiratory Rate 16 02/15/17 15:06 Blood Pressure 114/68 02/15/17 15:06 O2 Sat by Pulse Oximetry (%) 100 02/15/17 12:30 Labs: CBC, BMP 02/15/17 06:40 02/15/17 06:40 Visit type - Emergency Visit Emergency Visit: No - New Patient This patient is new to me today: No - Critical Care Critical Care patient: No
[2017-02-15] MEDS: ATORVASTATIN CA 20 MG TABLET (FP) PO SCH (21:51)
[2017-02-16] MEDS: ACETAMINOPHEN 325 MG TABLET (FP) PO PRN ×2 (00:52→20:23)
[2017-02-16] MEDS ORDERED: IBUPROFEN 400 MG TABLET (FP) PO ONE (02:46)
[2017-02-16] MEDS: INSULIN SLIDING SCALE (NOVOLOG) 1 VIAL SQ SCH ×2 (06:07→17:29)
[2017-02-16 09:12] LABS: BASOPHIL 0.8 % (0-2.0); EOSINOPHIL 1.9 % (0-4.5); MCH 23.9 pg (25.7-33.7); MCHC 31.2 g/dl (32.0-36.0); MEAN CELL VOLUME 76.4 fl (80-96); MEAN PLT VOLUME 7.3 fl (7.5-11.1); NEUTROPHILS 65.5 % (42.8-82.8); PLATELET COUNT 306 K/MM3 (134-434); RDW 18.1 % (11.6-15.6); WHITE BLOOD COUNT 8.3 K/mm3 (4.0-10.0)
[2017-02-16] MEDS: ASPIRIN COATED 81 MG TABLET.EC PO SCH (09:30)
[2017-02-16] MEDS: levETIRAcetam 250 MG TABLET (FP) PO SCH ×2 (09:30→21:15)
[2017-02-16] MEDS: guaiFENesin 200 MG/10 ML 10 ML UNIT-DOSE CUPS PO PRN ×2 (09:30→20:23)
[2017-02-16] MEDS: LISINOPRIL 10 MG TABLET (FP) PO SCH (09:30)
[2017-02-16] MEDS: PANTOPRAZOLE SOD 40 MG SUSPENSION PACKET PO SCH (09:30)
[2017-02-16] MEDS: DOCUSATE SODIUM 100 MG CAPSULE (FP) PO SCH ×2 (09:31→21:15)
[2017-02-16] MEDS: HEPARIN NA (PORCINE) 5,000 UNITS/ML 1ML VIAL SQ SCH ×2 (09:31→21:14)
[2017-02-16] MEDS: FERROUS SO4 325 MG TABLET (FP) PO SCH ×2 (09:31→21:15)
--- NOTE | 2017-02-16 12:33 | PN ---
Progress Note, Physician Chief Complaint: Not in distress Episode of fever History of Present Illness: Patient was seen and examined. Awake and alert. Chart was reviewed Denies chest pain, SOB or palpitations - Current Medication List Current Medications: Active Medications Acetaminophen (Tylenol -) 650 mg PO Q4H PRN PRN Reason: FEVER OR PAIN Last Admin: 02/16/17 00:52 Dose: 650 mg Aspirin (Ecotrin -) 81 mg PO DAILY [facility] Last Admin: 02/16/17 09:30 Dose: 81 mg Atorvastatin Calcium (Lipitor -) 20 mg PO HS [facility] Docusate Sodium (Colace -) 100 mg PO BID [facility] Last Admin: 02/16/17 09:31 Dose: 100 mg Ferrous Sulfate (Feosol -) 325 mg PO BID [facility] Last Admin: 02/16/17 09:31 Dose: 325 mg Guaifenesin (Robitussin -) 10 ml PO Q6H PRN PRN Reason: COUGH Last Admin: 02/16/17 09:30 Dose: 10 ml Heparin Sodium (Porcine) (Heparin -) 5,000 unit SQ BID [facility] Last Admin: 02/16/17 09:31 Dose: 5,000 unit Insulin Aspart (Novolog Vial Sliding Scale -) 1 vial SQ BIDAC [facility] PRN Reason: Protocol Last Admin: 02/16/17 06:07 Dose: Not Given Levetiracetam (Keppra -) 250 mg PO BID [facility] Last Admin: 02/16/17 09:30 Dose: 250 mg Lisinopril (Prinivil) 10 mg PO DAILY [facility] Last Admin: 02/16/17 09:30 Dose: 10 mg Pantoprazole Sodium (Protonix Packets For Oral Suspension -) 20 mg PO DAILY [facility] Last Admin: 02/16/17 09:30 Dose: 20 mg - Objective Vital Signs: Vital Signs Temperature 97.9 F 02/16/17 07:55 Pulse Rate 73 02/16/17 07:55 Respiratory Rate 20 02/16/17 08:00 Blood Pressure 113/75 02/16/17 07:55 O2 Sat by Pulse Oximetry (%) 97 02/16/17 08:00 Neck: Yes: Supple Cardiovascular: Yes: Regular Rate and Rhythm, S1, S2 Respiratory: Yes: Diminished Gastrointestinal: Yes: Normal Bowel Sounds, Soft. No: Tenderness Edema: No Additional Findings/Remarks: - Review of Systems Constitutional: reports: Weakness. denies: Chills, Fever Cardiovascular: denies: Chest Pain, Palpitations, Shortness of Breath Respiratory: reports: Cough. denies: Hemoptysis, Orthopnea, PND, SOB, SOB on Exertion Gastrointestinal: denies: Abdominal Pain, Constipation, Diarrhea, Melena, Nausea , Rectal Bleeding, Vomiting Neurological: reports: Dizziness, Syncope, Weakness. denies: Headache, Seizure Labs: CBC, BMP 02/16/17 08:45 02/15/17 06:40 INR, PTT INR 1.18 (0.82-1.09) H 02/15/17 06:40 Problem List - Problems (1) Syncope Code(s): R55 - SYNCOPE AND COLLAPSE Qualifiers: Encounter type: subsequent encounter (2) Dementia Code(s): F03.90 - UNSPECIFIED DEMENTIA WITHOUT BEHAVIORAL DISTURBANCE Qualifiers: Alzheimer's disease onset: unspecified onset (3) HTN (hypertension) Code(s): I10 - ESSENTIAL (PRIMARY) HYPERTENSION Qualifiers: Hypertension type: essential hypertension Qualified Code(s): I10 - Essential (primary) hypertension (4) Hyperlipidemia Code(s): E78.5 - HYPERLIPIDEMIA, UNSPECIFIED Qualifiers: Hyperlipidemia type: pure hypercholesterolemia Qualified Code(s): E78.00 - Pure hypercholesterolemia, unspecified; E78.0 - Pure hypercholesterolemia (5) AV block, 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 - ATRIOVENTRICULAR BLOCK, SECOND DEGREE Assessment/Plan 1. Syncope +/- seizures, etiology to be determined. 2. 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 Hypertension 4. Hypercholesterolemia 5. Organic brain/mild dementia PLAN: 1. EEG was done and currently continued on Keppra by Neurology 2. ILR implanted by EP service 3. Close monitoring on tele for now. Interrogation as per protocol 4. Continue Ecotrin 5. Continue Lipitor 6. Monitor for fever Further plans are to follow Dom Kelly MD
--- NOTE | 2017-02-16 16:05 | PN ---
Physical Exam: SUBJECTIVE: Patient seen and examined at bedside. Pt continues to have cough and low fever. No other complaints. Denies nausea, vomiting, cp, sob. OBJECTIVE: Vital Signs Period Temp Pulse Resp BP Sys/Reyes Pulse Ox Last 24 Hr 97.9 F-100.8 F 69-88 18-20 100-118/56-75 97-98 GENERAL: The patient is awake, alert, and fully oriented, in no acute distress. HEAD: Normal with no signs of trauma. EYES: sclera anicteric, conjunctiva clear. No ptosis. ENT: oropharynx clear without exudates, moist mucous membranes. NECK: Trachea midline, full range of motion, supple. LUNGS: Breath sounds equal, clear to auscultation bilaterally, no wheezes, no crackles, no accessory muscle use. HEART: Regular rate and rhythm, S1, S2 without murmur, rub or gallop. ABDOMEN: Soft, nontender, nondistended, normoactive bowel sounds, no guarding, no rebound, no hepatosplenomegaly, no masses. EXTREMITIES: 2+ pulses, warm, well-perfused, no edema. NEUROLOGICAL: Cranial nerves II through XII grossly intact. Normal speech, gait not observed. PSYCH: Normal mood, normal affect. SKIN: Warm, dry, normal turgor, no rashes or lesions noted Laboratory Results - last 24 hr 02/15/17 02/16/17 02/16/17 06:40 05:59 08:45 WBC 8.3 RBC 3.98 Hgb 9.5 L Hct 30.4 L MCV 76.4 L MCH 23.9 L MCHC 31.2 L RDW 18.1 H Plt Count 306 MPV 7.3 L Neutrophils % 65.5 Lymphocytes % 16.4 Monocytes % 15.4 H Eosinophils % 1.9 Basophils % 0.8 POC Glucometer 90 Free T3 2.6 Active Medications Generic Name Dose Route Start Last Admin Trade Name Freq PRN Reason Stop Dose Admin Acetaminophen 650 mg 02/15/17 15:11 02/16/17 00:52 Tylenol - PO 650 mg Q4H PRN Administration FEVER OR PAIN Aspirin 81 mg 02/16/17 10:00 02/16/17 09:30 Ecotrin - PO 81 mg DAILY [facility] Administration Atorvastatin Calcium 20 mg 02/16/17 22:00 Lipitor - PO HS [facility] Docusate Sodium 100 mg 02/16/17 10:00 02/16/17 09:31 Colace - PO 100 mg BID [facility] Administration Ferrous Sulfate 325 mg 02/16/17 10:00 02/16/17 09:31 Feosol - PO 325 mg BID [facility] Administration Guaifenesin 10 ml 02/15/17 22:30 02/16/17 09:30 Robitussin - PO 10 ml Q6H PRN Administration COUGH Heparin Sodium (Porcine) 5,000 unit 02/16/17 10:00 02/16/17 09:31 Heparin - SQ 5,000 unit BID [facility] Administration Insulin Aspart 1 vial 02/16/17 07:00 02/16/17 06:07 Novolog Vial Sliding Scale - SQ Not Given BIDAC [facility] Protocol Levetiracetam 250 mg 02/16/17 10:00 02/16/17 09:30 Keppra - PO 250 mg BID [facility] Administration Lisinopril 10 mg 02/16/17 10:00 02/16/17 09:30 Prinivil PO 10 mg DAILY [facility] Administration Pantoprazole Sodium 20 mg 02/16/17 10:00 02/16/17 09:30 Protonix Packets For Oral Suspension - PO 20 mg DAILY [facility] Administration ASSESSMENT/PLAN: Mrs. Abraham is a 82yo F with HTN, HLD, Vertigo who presented to ER after an episode of syncope, witnessed by family. Pt's family states she has low PO intake. #Fever and cough -fever of 100.8 -f/u CXR tomorrow -f/u CBC tomorrow. No leukocytosis so far # Syncope - Likely secondary to dehydration - Noncon Head CT negative - Orthostatic vitals negative - per vascular surg Carotid dopplers show <20% stenosis - UA+UCx pending - Echo shows normal LV - s/p loop recorder implant # Acute Kidney Injury resolved - Likely from dehydration - Cr 0.8 # Microcytic Anemia - Iron studies show Fe-defic anemia - Fe sulfate supplement # Hyperglycemia - A1C - 6.1 - BGMs w/ SSI # Hx of HLD - Continue statin # Hx of CAD - Continue ASA # Hx of GERD - Continue PPI # FEN -not on fluids -lytes wnl -Sodium controlled diet # Prophylaxis - DVT: Heparin SQ BID - GI: Not indicated - Deconditioning: Pt ordered # Dispo - Obs in Tele for cardiac monitoring - Await Neuro reccs Justin Edwards MD PGY-1 Visit type - Emergency Visit Emergency Visit: No - New Patient This patient is new to me today: No - Critical Care Critical Care patient: No - Discharge Referral Referred to [facility] Med P.C.: No
--- NOTE | 2017-02-16 16:09 | PN ---
Teaching Attending Note Name of Resident: Justin Edwards ATTENDING PHYSICIAN STATEMENT I saw and evaluated the patient. I reviewed the resident's note and discussed the case with the resident. I agree with the resident's findings and plan as documented. SUBJECTIVE: Patient continues to have dry cough. She had temp 100.6 yesterday so she was not discharged. Had temp 100.8 overnight. OBJECTIVE: Vital Signs Period Temp Pulse Resp BP Sys/Reyes Pulse Ox Last 24 Hr 97.9 F-100.8 F 69-88 18-20 100-118/56-75 97-98 HEART: S1S2, RRR LUNGS: Clear ABDOMEN: Soft, non-tender, non-distended, normal BS EXTREMITIES: No edema ASSESSMENT AND PLAN: HEART: S1S2, RRR LUNGS: Clear ABDOMEN: Soft, non-tender, non-distended, normal BS EXTREMITIES: No edema ASSESSMENT AND PLAN: This is an 82 year old woman with a history of CAD, HTN, hyperlipidemia, GERD, dementia, vertigo who presented to the ER after family witnessed her to pass out in christianity. 1. 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 Cough - No evidence of pneumonia - Monitor temp 3. Iron deficiency anemia - Hemoglobin stable - Continue ferrous sulfate 4. HTN - Continue Lisinopril 5. Hyperlipidemia - Continue Lipitor 6. CAD - Continue aspirin, Lipitor 7. GERD - Continue Protonix 8. Acute kidney injury - Resolved
[2017-02-16] MEDS ORDERED: PT OWN MED DRAWER 7, Y5N ONE (17:46)
[2017-02-16] MEDS: ATORVASTATIN CA 20 MG TABLET (FP) PO SCH (21:15)
[2017-02-17] MEDS: INSULIN SLIDING SCALE (NOVOLOG) 1 VIAL SQ SCH ×2 (06:05→17:19)
[2017-02-17 07:47] LABS: BASOPHIL 0.5 % (0-2.0); EOSINOPHIL 0.8 % (0-4.5); MCHC 31.3 g/dl (32.0-36.0); MEAN CELL VOLUME 76.5 fl (80-96); MEAN PLT VOLUME 7.7 fl (7.5-11.1); NEUTROPHILS 74.9 % (42.8-82.8); PLATELET COUNT 315 K/MM3 (134-434); RDW 18.2 % (11.6-15.6); WHITE BLOOD COUNT 12.9 K/mm3 (4.0-10.0)
--- NOTE | 2017-02-17 08:43 | PN ---
Progress Note (short form) - Note Progress Note: Chief Complaint: Events noted, notes reviewed. Denies any chest pain or dyspnea , fever evaluation in progress History of Present Illness: Seen and examined on telemetry. Events noted, notes reviewed. Denies any chest pain or dyspnea, fever evaluation in progress Post Loop recorder implant, outpatient F/U - Current Medication List Current Medications Acetaminophen (Tylenol -) 650 mg PO Q4H PRN PRN Reason: FEVER OR PAIN Last Admin: 02/16/17 20:23 Dose: 650 mg Aspirin (Ecotrin -) 81 mg PO DAILY [facility] Last Admin: 02/16/17 09:30 Dose: 81 mg Atorvastatin Calcium (Lipitor -) 20 mg PO HS [facility] Last Admin: 02/16/17 21:15 Dose: 20 mg Docusate Sodium (Colace -) 100 mg PO BID [facility] Last Admin: 02/16/17 21:15 Dose: 100 mg Ferrous Sulfate (Feosol -) 325 mg PO BID [facility] Last Admin: 02/16/17 21:15 Dose: 325 mg Guaifenesin (Robitussin -) 10 ml PO Q6H PRN PRN Reason: COUGH Last Admin: 02/16/17 20:23 Dose: 10 ml Heparin Sodium (Porcine) (Heparin -) 5,000 unit SQ BID [facility] Last Admin: 02/16/17 21:14 Dose: 5,000 unit Insulin Aspart (Novolog Vial Sliding Scale -) 1 vial SQ BIDAC [facility] PRN Reason: Protocol Last Admin: 02/17/17 06:05 Dose: Not Given Levetiracetam (Keppra -) 250 mg PO BID [facility] Last Admin: 02/16/17 21:15 Dose: 250 mg Lisinopril (Prinivil) 10 mg PO DAILY [facility] Last Admin: 02/16/17 09:30 Dose: 10 mg Pantoprazole Sodium (Protonix Packets For Oral Suspension -) 20 mg PO DAILY [facility] Last Admin: 02/16/17 09:30 Dose: 20 mg Review of Systems Constitutional: Fever Respiratory: reports Cough Cardiovascular: As noted above Gastrointestinal: denies Nausea, Vomiting, Abdominal Pain, Diarrhea or Constipation Genitourinary: no symptoms reported - Objective Vital Signs: Last Vital Signs Temp Pulse Resp BP Pulse Ox 99.8 F H 82 18 108/52 94 L 02/17/17 05:32 02/17/17 05:32 02/17/17 05:32 02/17/17 05:32 02/16/17 20:32 Constitutional: No Distress, Calm Neck: Supple Negative JVD No Bruit Cardiovascular: S1 S2 Regular Rate and Rhythm Respiratory: Clear to A&P Bilaterally Gastrointestinal: Soft Benign Normal Bowel Sounds Ext: No Edema Labs: CBC, BMP 02/17/17 06:00 02/15/17 06:40 Hepatic Panel Total Bilirubin 0.5 mg/dL (0.2-1.0) D 02/11/17 13:40 AST 27 U/L (15-37) 02/11/17 13:40 ALT 26 U/L (12-78) 02/11/17 13:40 Alkaline Phosphatase 108 U/L (45-117) 02/11/17 13:40 Albumin 3.2 g/dl (3.4-5.0) L 02/11/17 13:40 Assessment/Plan ASSESSMENT: 1. Syncope +/- seizures disorder, post implantable loop recorder 2. 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 Hypertension 4. Hypercholesterolemia 5. Organic brain syndrome/dementia 6. Fever, etiology to be determined PLAN: 1. Continue Lisinopril 2. Continue Ecotrin 3. Continue Lipitor 4. As outlined avoid AV maki blocking agents 5. Evaluation of fever as per the primary team 6. Once D/C home to F/U in the office for loop recorder monitoring Silva Gutiérrez M.D.
[2017-02-17] MEDS: DOCUSATE SODIUM 100 MG CAPSULE (FP) PO SCH ×2 (09:18→22:03)
[2017-02-17] MEDS: levETIRAcetam 250 MG TABLET (FP) PO SCH ×2 (09:18→22:03)
[2017-02-17] MEDS: PANTOPRAZOLE SOD 40 MG SUSPENSION PACKET PO SCH (09:18)
[2017-02-17] MEDS: LISINOPRIL 10 MG TABLET (FP) PO SCH (09:18)
[2017-02-17] MEDS: FERROUS SO4 325 MG TABLET (FP) PO SCH ×2 (09:18→22:03)
[2017-02-17] MEDS: ASPIRIN COATED 81 MG TABLET.EC PO SCH (09:18)
[2017-02-17] MEDS: HEPARIN NA (PORCINE) 5,000 UNITS/ML 1ML VIAL SQ SCH ×2 (09:19→22:03)
--- NOTE | 2017-02-17 11:07 | PN ---
Progress Note (short form) - Note Progress Note: Patient on Keppra 250 bid. EEG was normal but loop monitor showed cardiac rhythm abnormalities. If can cutter agrees that these abnormalities are likely to have caused her recurrent syncope, I would discontinue her Keppra, as there is no clear evidence of seizure disorder either clinically or on EEG.
--- NOTE | 2017-02-17 11:08 | OP ---
DATE OF OPERATION: 02/15/2017 PROCEDURE PERFORMED: Implantable loop recorder implant. SURGEON: Jayme Bess M.D. COMPLICATIONS: None. ESTIMATED BLOOD LOSS: Minimal. INDICATIONS: The patient is an 82-year-old female with past medical history of hypertension, Mobitz I, prolonged AV delay and normal LV function, presenting with recurrent syncope of undetermined etiology, with negative monitoring. She is here for an implantable loop recorder implantation for further monitoring. The patient met standard criterial for implantation of an implantable loop recorder for further monitoring of recurrent syncope. DESCRIPTION OF PROCEDURE: Informed consent was obtained. An adequate time for questions and answers was offered to the patient and her family prior to the procedure. The left infraclavicular and anterior was prepped and broadly draped. Local anesthesia was administered. Following the administration of local anesthesia, an incision was made at the 4th intercostal space in the left chest area. Using the implantable loop recorder tools, the [employer] LINQ, serial number [id number], was successfully implanted in the left anterior chest region in the 4th intercostal space in a horizontal direction. Proper sensing and function of the device was confirmed at 0.66 mV. The incision was then closed using absorbable sutures and Dermabond. A sterile bandage was also applied. The patient was transported to the postprocedure monitoring area for additional observation. JAYME BESS M.D. [id number] cc: FRANCHESKA LAZCANO M.D.
--- NOTE | 2017-02-17 13:59 | PN ---
Physical Exam: SUBJECTIVE: Patient seen and examined at bedside. Pt febrile to 101 last night. No complaints at this time. Pt states she feels better. OBJECTIVE: Vital Signs Period Temp Pulse Resp BP Sys/Reyes Pulse Ox Last 24 Hr 97.9 F-101.5 F 69-87 18-20 94-128/52-68 94-94 GENERAL: The patient is awake, alert, and fully oriented, in no acute distress. HEAD: Normal with no signs of trauma. EYES: sclera anicteric, conjunctiva clear. No ptosis. ENT: oropharynx clear without exudates, moist mucous membranes. NECK: Trachea midline, full range of motion, supple. LUNGS: Breath sounds equal, clear to auscultation bilaterally, no wheezes, no crackles, no accessory muscle use. HEART: Regular rate and rhythm, S1, S2 without murmur, rub or gallop. ABDOMEN: Soft, nontender, nondistended, normoactive bowel sounds, no guarding, no rebound, no hepatosplenomegaly, no masses. EXTREMITIES: 2+ pulses, warm, well-perfused, no edema. NEUROLOGICAL: Cranial nerves II through XII grossly intact. Normal speech, gait not observed. PSYCH: Normal mood,GENERAL: The patient is awake, alert, and fully oriented, in no acute distress. SKIN: Warm, dry, normal turgor, no rashes or lesions noted Laboratory Results - last 24 hr 02/16/17 02/17/17 02/17/17 17:28 06:00 06:02 WBC 12.9 H D RBC 3.80 Hgb 9.1 L Hct 29.0 L MCV 76.5 L MCH 24.0 L MCHC 31.3 L RDW 18.2 H Plt Count 315 MPV 7.7 Neutrophils % 74.9 Lymphocytes % 11.5 D Monocytes % 12.3 H Eosinophils % 0.8 Basophils % 0.5 POC Glucometer 106 89 Lactic Acid 02/17/17 12:00 WBC RBC Hgb Hct MCV MCH MCHC RDW Plt Count MPV Neutrophils % Lymphocytes % Monocytes % Eosinophils % Basophils % POC Glucometer Lactic Acid 0.9 Active Medications Generic Name Dose Route Start Last Admin Trade Name Freq PRN Reason Stop Dose Admin Acetaminophen 650 mg 02/15/17 15:11 02/16/17 20:23 Tylenol - PO 650 mg Q4H PRN Administration FEVER OR PAIN Aspirin 81 mg 02/16/17 10:00 02/17/17 09:18 Ecotrin - PO 81 mg DAILY ALBINO Administration Atorvastatin Calcium 20 mg 02/16/17 22:00 02/16/17 21:15 Lipitor - PO 20 mg HS ALBINO Administration Docusate Sodium 100 mg 02/16/17 10:00 02/17/17 09:18 Colace - PO 100 mg BID ALBINO Administration Ferrous Sulfate 325 mg 02/16/17 10:00 02/17/17 09:18 Feosol - PO 325 mg BID ALBINO Administration Guaifenesin 10 ml 02/15/17 22:30 02/16/17 20:23 Robitussin - PO 10 ml Q6H PRN Administration COUGH Heparin Sodium (Porcine) 5,000 unit 02/16/17 10:00 02/17/17 09:19 Heparin - SQ 5,000 unit BID ALBINO Administration Insulin Aspart 1 vial 02/16/17 07:00 02/17/17 06:05 Novolog Vial Sliding Scale - SQ Not Given BIDAC [facility] Protocol Levetiracetam 250 mg 02/16/17 10:00 02/17/17 09:18 Keppra - PO 250 mg BID ALBINO Administration Lisinopril 10 mg 02/16/17 10:00 02/17/17 09:18 Prinivil PO 10 mg DAILY [facility] Administration Pantoprazole Sodium 20 mg 02/16/17 10:00 02/17/17 09:18 Protonix Packets For Oral Suspension - PO 20 mg DAILY [facility] Administration ASSESSMENT/PLAN: Mrs. Abraham is a 82yo F with HTN, HLD, Vertigo who presented to ER after an episode of syncope, witnessed by family. Pt's family states she has low PO intake. #Fever and cough -fever of 101 -CXR showed no acute pathology -leukocytosis -f/u Cx # Syncope - Likely secondary to dehydration - Noncon Head CT negative - Orthostatic vitals negative - per vascular surg Carotid dopplers show <20% stenosis - UA+UCx pending - Echo shows normal LV - s/p loop recorder implant -will follow up out pt for this # Acute Kidney Injury resolved - Likely from dehydration - Cr 0.8 # Microcytic Anemia - Iron studies show Fe-defic anemia - Fe sulfate supplement # Hyperglycemia - A1C - 6.1 - BGMs w/ SSI # Hx of HLD - Continue statin # Hx of CAD - Continue ASA # Hx of GERD - Continue PPI # FEN -not on fluids -lytes wnl -Sodium controlled diet # Prophylaxis - DVT: Heparin SQ BID - GI: Not indicated - Deconditioning: Pt ordered # Dispo - Obs in Tele for cardiac monitoring - Await Neuro reccs Justin Edwards MD PGY-1 Visit type - Emergency Visit Emergency Visit: No - New Patient This patient is new to me today: No - Critical Care Critical Care patient: No - Discharge Referral Referred to [facility] No
--- NOTE | 2017-02-17 14:32 | PN ---
Teaching Attending Note Name of Resident: Justin Edwards ATTENDING PHYSICIAN STATEMENT I saw and evaluated the patient. I reviewed the resident's note and discussed the case with the resident. I agree with the resident's findings and plan as documented. SUBJECTIVE: Cough is productive of white sputum. Has nasal congestion and rhinorrhea. Had temp 101.5 last night. OBJECTIVE: Vital Signs Period Temp Pulse Resp BP Sys/Reyes Pulse Ox Last 24 Hr 97.9 F-101.5 F 69-87 18-20 94-128/52-68 94-94 HEART: S1S2, RRR LUNGS: Clear ABDOMEN: Soft, non-tender, non-distended, normal BS EXTREMITIES: No edema ASSESSMENT AND PLAN: This is an 82 year old woman with a history of CAD, HTN, hyperlipidemia, GERD, dementia, vertigo who presented to the ER after family witnessed her to pass out in yarsani. 1. 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 Cough with fever - No evidence of pneumonia on exam or CXR - Will treat for URI/sinusitis 3. Iron deficiency anemia - Hemoglobin stable - Continue ferrous sulfate 4. HTN - Continue Lisinopril 5. Hyperlipidemia - Continue Lipitor 6. CAD - Continue aspirin, Lipitor - Not on beta-aldo secondary to 2nd degree AV block 7. GERD - Continue Protonix 8. Acute kidney injury - Resolved 9. Dementia
[2017-02-17] MEDS: AZITHROMYCIN 250 MG TABLET PO SCH (15:39)
[2017-02-17] MEDS: ATORVASTATIN CA 20 MG TABLET (FP) PO SCH (22:03)
[2017-02-18] MEDS: INSULIN SLIDING SCALE (NOVOLOG) 1 VIAL SQ SCH ×2 (06:30→15:53)
[2017-02-18 07:52] LABS: BASOPHIL 0.7 % (0-2.0); EOSINOPHIL 0.7 % (0-4.5); MCH 23.8 pg (25.7-33.7); MCHC 31.2 g/dl (32.0-36.0); MEAN CELL VOLUME 76.4 fl (80-96); MEAN PLT VOLUME 7.8 fl (7.5-11.1); NEUTROPHILS 69.7 % (42.8-82.8); PLATELET COUNT 323 K/MM3 (134-434); RDW 18.5 % (11.6-15.6); WHITE BLOOD COUNT 12.9 K/mm3 (4.0-10.0)
--- NOTE | 2017-02-18 08:03 | PN ---
Progress Note (short form) - Note Progress Note: Chief Complaint: Events noted, notes reviewed. Denies any chest pain or dyspnea , therapy initiated for URI/sinusitis History of Present Illness: Seen and examined on telemetry. Events noted, notes reviewed. Denies any chest pain or dyspnea, therapy initiated for URI/sinusitis Post Loop recorder implant, outpatient F/U as outlined - Current Medication List Current Medications Acetaminophen (Tylenol -) 650 mg PO Q4H PRN PRN Reason: FEVER OR PAIN Last Admin: 02/16/17 20:23 Dose: 650 mg Aspirin (Ecotrin -) 81 mg PO DAILY [facility] Last Admin: 02/17/17 09:18 Dose: 81 mg Atorvastatin Calcium (Lipitor -) 20 mg PO HS [facility] Last Admin: 02/17/17 22:03 Dose: 20 mg Azithromycin (Zithromax -) 500 mg PO DAILY [facility] Stop: 02/19/17 12:00 Last Admin: 02/17/17 15:39 Dose: 500 mg Docusate Sodium (Colace -) 100 mg PO BID [facility] Last Admin: 02/17/17 22:03 Dose: 100 mg Ferrous Sulfate (Feosol -) 325 mg PO BID [facility] Last Admin: 02/17/17 22:03 Dose: 325 mg Guaifenesin (Robitussin -) 10 ml PO Q6H PRN PRN Reason: COUGH Last Admin: 02/16/17 20:23 Dose: 10 ml Heparin Sodium (Porcine) (Heparin -) 5,000 unit SQ BID [facility] Last Admin: 02/17/17 22:03 Dose: 5,000 unit Insulin Aspart ([facility]ial Sliding Scale -) [facility] Reason: Protocol Last Admin: 02/18/17 06:30 Dose: Not Given Levetiracetam (Keppra -) 250 mg PO BID [facility] Last Admin: 02/17/17 22:03 Dose: 250 mg Lisinopril (Prinivil) 10 mg PO DAILY [facility] Last Admin: 02/17/17 09:18 Dose: 10 mg Pantoprazole Sodium (Protonix Packets For Oral Suspension -) 20 mg PO DAILY [facility] Last Admin: 02/17/17 09:18 Dose: 20 mg Review of Systems Constitutional: Low Grade Fever Respiratory: reports Cough Cardiovascular: As noted above Gastrointestinal: denies Nausea, Vomiting, Abdominal Pain, Diarrhea or Constipation Genitourinary: no symptoms reported - Objective Vital Signs: Last Vital Signs Temp Pulse Resp BP Pulse Ox 99.2 F 81 16 107/66 98 02/18/17 06:00 02/18/17 06:00 02/18/17 06:00 02/18/17 06:00 02/17/17 21:00 Intake & Output 02/15/17 02/16/17 02/17/17 02/18/17 23:59 23:59 23:59 23:59 Intake Total 545 490 520 250 Balance 545 490 520 250 Constitutional: No Distress, Calm Neck: Supple Negative JVD No Bruit Cardiovascular: S1 S2 Regular Rate and Rhythm Respiratory: Clear to A&P Bilaterally Gastrointestinal: Soft Benign Normal Bowel Sounds Ext: No Edema Labs: CBC, BMP 02/18/17 06:30 02/15/17 06:40 Hepatic Panel Total Bilirubin 0.5 mg/dL (0.2-1.0) D 02/11/17 13:40 AST 27 U/L (15-37) 02/11/17 13:40 ALT 26 U/L (12-78) 02/11/17 13:40 Alkaline Phosphatase 108 U/L (45-117) 02/11/17 13:40 Albumin 3.2 g/dl (3.4-5.0) L 02/11/17 13:40 Assessment/Plan ASSESSMENT: 1. Syncope +/- seizures disorder, post implantable loop recorder (most likely neuro-cardiogenic syncope, unclear vaso-depressor vs. cardio-inhibitory) 2. Secondary AV block with periods of Mobitz 1 (Wenchebach) and episodes of 2:1 AV block in addition of blocked APC and 1st degree AV block, no evidence of advanced AV block 3. Hypertension 4. Hypercholesterolemia 5. Organic brain syndrome/dementia 6. Probable URI/sinusitis PLAN: 1. Continue Lisinopril 2. Continue Ecotrin 3. Continue Lipitor 4. As outlined avoid AV maki blocking agents 5. Antibiotics as per the primary team 6. Once D/C home to F/U in the office for loop recorder monitoring Silva Gutiérrez M.D.
[2017-02-18] MEDS ORDERED: PT OWN MED DRAWER 7, Y5N ONE (09:04)
[2017-02-18] MEDS: DOCUSATE SODIUM 100 MG CAPSULE (FP) PO SCH ×2 (09:42→22:45)
[2017-02-18] MEDS: ASPIRIN COATED 81 MG TABLET.EC PO SCH (09:42)
[2017-02-18] MEDS: LISINOPRIL 10 MG TABLET (FP) PO SCH (09:42)
[2017-02-18] MEDS: levETIRAcetam 250 MG TABLET (FP) PO SCH (09:43)
[2017-02-18] MEDS: HEPARIN NA (PORCINE) 5,000 UNITS/ML 1ML VIAL SQ SCH ×2 (09:43→22:45)
[2017-02-18] MEDS: FERROUS SO4 325 MG TABLET (FP) PO SCH ×2 (09:43→22:45)
[2017-02-18] MEDS: PANTOPRAZOLE SOD 40 MG SUSPENSION PACKET PO SCH (09:44)
[2017-02-18] MEDS: AZITHROMYCIN 250 MG TABLET PO SCH (09:44)
[2017-02-18] MEDS: ACETAMINOPHEN 325 MG TABLET (FP) PO PRN (10:08)
[2017-02-18] MEDS: guaiFENesin 200 MG/10 ML 10 ML UNIT-DOSE CUPS PO PRN (10:08)
--- NOTE | 2017-02-18 10:11 | PN ---
Progress Note (short form) - Note Progress Note: Patient Keppra 250 bid discontinued as EEG was normal but loop monitor showed cardiac rhythm abnormalities. We'll sign off as this appears not to be neurogenic in nature. Please reconsult if further questions arise, thanks!
--- NOTE | 2017-02-18 11:17 | PN ---
Physical Exam: SUBJECTIVE: Patient seen and examined. Cough is improving. OBJECTIVE: Vital Signs Period Temp Pulse Resp BP Sys/Reyes Pulse Ox Last 24 Hr 98.8 F-100.1 F 18-81 16-85 94-132/46-66 98 GENERAL: The patient is drowsy sitting in chair, in no acute distress. LUNGS: Breath sounds equal, clear to auscultation bilaterally, no wheezes, no crackles, no accessory muscle use. HEART: Regular rate and rhythm, S1, S2 without murmur, rub or gallop. ABDOMEN: Soft, nontender, nondistended, normoactive bowel sounds, no guarding, no rebound, no hepatosplenomegaly, no masses. EXTREMITIES: 2+ pulses, warm, well-perfused, no edema. Laboratory Results - last 24 hr 02/17/17 02/17/17 02/18/17 12:00 17:12 05:46 WBC RBC Hgb Hct MCV MCH MCHC RDW Plt Count MPV Neutrophils % Lymphocytes % Monocytes % Eosinophils % Basophils % POC Glucometer 105 91 Lactic Acid 0.9 02/18/17 06:30 WBC 12.9 H RBC 3.65 Hgb 8.7 L Hct 27.9 L MCV 76.4 L MCH 23.8 L MCHC 31.2 L RDW 18.5 H Plt Count 323 MPV 7.8 Neutrophils % 69.7 Lymphocytes % 16.2 D Monocytes % 12.7 H Eosinophils % 0.7 Basophils % 0.7 POC Glucometer Lactic Acid Active Medications Generic Name Dose Route Start Last Admin Trade Name Freq PRN Reason Stop Dose Admin Acetaminophen 650 mg 02/15/17 15:11 02/18/17 10:08 Tylenol - PO 650 mg Q4H PRN Administration FEVER OR PAIN Aspirin 81 mg 02/16/17 10:00 02/18/17 09:42 Ecotrin - PO 81 mg DAILY [facility] Administration Atorvastatin Calcium 20 mg 02/16/17 22:00 02/17/17 22:03 Lipitor - PO 20 mg HS AL[facility]O Administration Azithromycin 500 mg 02/17/17 14:30 02/18/17 09:44 Zithromax - PO 02/19/17 12:00 500 mg DAILY [facility] Administration Docusate Sodium 100 mg 02/16/17 10:00 02/18/17 09:42 Colace - PO 100 mg BID [facility] Administration Ferrous Sulfate 325 mg 02/16/17 10:00 02/18/17 09:43 Feosol - PO 325 mg BID [facility] Administration Guaifenesin 10 ml 02/15/17 22:30 02/18/17 10:08 Robitussin - PO 10 ml Q6H PRN Administration COUGH Heparin Sodium (Porcine) 5,000 unit 02/16/17 10:00 02/18/17 09:43 Heparin - SQ 5,000 unit BID [facility] Administration Insulin Aspart 1 vial 02/16/17 07:00 02/18/17 06:30 Novolog Vial Sliding Scale - SQ Not Given BIDAC [facility] Protocol Levetiracetam 250 mg 02/16/17 10:00 02/18/17 09:43 Keppra - PO 250 mg BID [facility] Administration Lisinopril 10 mg 02/16/17 10:00 02/18/17 09:42 Prinivil PO 10 mg DAILY [facility] Administration Pantoprazole Sodium 20 mg 02/16/17 10:00 02/18/17 09:44 Protonix Packets For Oral Suspension - PO 20 mg DAILY [facility] Administration ASSESSMENT/PLAN: This is an 82 year old woman with a history of CAD, HTN, hyperlipidemia, GERD, dementia, vertigo who presented to the ER after family witnessed her to pass out in tenriism. 1. 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 Cough with fever - Had temp 100.1 last night - No evidence of pneumonia on exam or CXR - Continue Zithromax, Robitussin as needed for URI, possible sinusitis 3. Iron deficiency anemia - Continue ferrous sulfate 4. HTN - Continue Lisinopril 5. Hyperlipidemia - Continue Lipitor 6. CAD - Continue aspirin, Lipitor - Not on beta-aldo secondary to 2nd degree AV block 7. GERD - Continue Protonix 8. Acute kidney injury - Resolved 9. Dementia 10. Disposition - Continue PT - Plan for discharge tomorrow if afebrile Visit type - Emergency Visit Emergency Visit: Yes ED Registration Date: 02/13/17 Care time: The patient presented to the Emergency Department on the above date and was hospitalized for further evaluation of their emergent condition. - New Patient This patient is new to me today: No - Critical Care Critical Care patient: No - Discharge Referral Referred to [facility].: No
[2017-02-18] MEDS: ATORVASTATIN CA 20 MG TABLET (FP) PO SCH (22:45)
[2017-02-19] MEDS: INSULIN SLIDING SCALE (NOVOLOG) 1 VIAL SQ SCH ×2 (06:16→16:58)
[2017-02-19 07:22] LABS: BASOPHIL 1.2 % (0-2.0); EOSINOPHIL 1.1 % (0-4.5); MCH 24.3 pg (25.7-33.7); MEAN PLT VOLUME 8.1 fl (7.5-11.1); NEUTROPHILS 70.1 % (42.8-82.8); PLATELET COUNT 342 K/MM3 (134-434); RDW 18.2 % (11.6-15.6); WHITE BLOOD COUNT 11.8 K/mm3 (4.0-10.0)
[2017-02-19 07:50] LABS: ANION GAP 11 (8-16); CALCIUM 8.1 mg/dL (8.5-10.1); CO2 25 mmol/L (21-32); CREATININE 0.7 mg/dL (0.55-1.02); GLUCOSE,RANDOM 72 mg/dL (74-106)
[2017-02-19] MEDS ORDERED: POTASSIUM CHLORIDE TABS 20 MEQ TABLET.ER (FP) PO ONE ×2 (07:53→11:45)
--- NOTE | 2017-02-19 10:53 | PN ---
Progress Note, Physician Chief Complaint: Not in distress History of Present Illness: Patient was seen and examined. Awake and alert. Chart was reviewed Denies chest pain, SOB or palpitations Tolerating therapy - Current Medication List Current Medications: Active Medications Acetaminophen (Tylenol -) 650 mg PO Q4H PRN PRN Reason: FEVER OR PAIN Last Admin: 02/18/17 10:08 Dose: 650 mg Aspirin (Ecotrin -) 81 mg PO DAILY [facility] Last Admin: 02/18/17 09:42 Dose: 81 mg Atorvastatin Calcium (Lipitor -) 20 mg PO HS [facility] Last Admin: 02/18/17 22:45 Dose: 20 mg Azithromycin (Zithromax -) 500 mg PO DAILY [facility] Stop: 02/19/17 12:00 Last Admin: 02/18/17 09:44 Dose: 500 mg Docusate Sodium (Colace -) 100 mg PO BID [facility] Last Admin: 02/18/17 22:45 Dose: 100 mg Ferrous Sulfate (Feosol -) 325 mg PO BID [facility] Last Admin: 02/18/17 22:45 Dose: 325 mg Guaifenesin (Robitussin -) 10 ml PO Q6H PRN PRN Reason: COUGH Last Admin: 02/18/17 10:08 Dose: 10 ml Heparin Sodium (Porcine) (Heparin -) 5,000 unit SQ BID [facility] Last Admin: 02/18/17 22:45 Dose: 5,000 unit Insulin Aspart (Novolog Vial Sliding Scale -) 1 vial SQ BIDAC [facility] PRN Reason: Protocol Last Admin: 02/19/17 06:16 Dose: Not Given Lisinopril (Prinivil) 10 mg PO DAILY [facility] Last Admin: 02/18/17 09:42 Dose: 10 mg Pantoprazole Sodium (Protonix Packets For Oral Suspension -) 20 mg PO DAILY [facility] Last Admin: 02/18/17 09:44 Dose: 20 mg - Objective Vital Signs: Vital Signs Temperature 98.7 F 02/19/17 05:30 Pulse Rate 85 02/19/17 05:30 Respiratory Rate 20 02/19/17 05:30 Blood Pressure 115/74 02/19/17 05:30 O2 Sat by Pulse Oximetry (%) 95 02/18/17 21:00 Neck: Yes: Supple Cardiovascular: Yes: Regular Rate and Rhythm, S1, S2 Respiratory: Yes: CTA Bilaterally Gastrointestinal: Yes: Normal Bowel Sounds, Soft. No: Tenderness Edema: No Labs: CBC, BMP 02/19/17 05:35 02/19/17 05:35 Problem List - Problems (1) Syncope Code(s): R55 - SYNCOPE AND COLLAPSE Qualifiers: Encounter type: subsequent encounter (2) Dementia Code(s): F03.90 - UNSPECIFIED DEMENTIA WITHOUT BEHAVIORAL DISTURBANCE Qualifiers: Alzheimer's disease onset: unspecified onset (3) HTN (hypertension) Code(s): I10 - ESSENTIAL (PRIMARY) HYPERTENSION Qualifiers: Hypertension type: essential hypertension Qualified Code(s): I10 - Essential (primary) hypertension (4) Hyperlipidemia Code(s): E78.5 - HYPERLIPIDEMIA, UNSPECIFIED Qualifiers: Hyperlipidemia type: pure hypercholesterolemia Qualified Code(s): E78.00 - Pure hypercholesterolemia, unspecified; E78.0 - Pure hypercholesterolemia (5) AV block, 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 - ATRIOVENTRICULAR BLOCK, SECOND DEGREE Assessment/Plan 1. Syncope +/- seizures (EEG negative) status post ILR (possibly neuro- cardiogenic syncope - vasodepressive vs. cardioinhibitory) 2. 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 Hypertension 4. Hypercholesterolemia 5. Organic brain/mild dementia PLAN: 1. ILR interrogation as outpatient 2. Continue Ecotrin 3. Continue Lipitor. Continue Prinivil 4. Avoid AV maki agent Further plans are to follow Dom Kelly MD
[2017-02-19] MEDS: DOCUSATE SODIUM 100 MG CAPSULE (FP) PO SCH (11:23)
[2017-02-19] MEDS: LISINOPRIL 10 MG TABLET (FP) PO SCH (11:24)
[2017-02-19] MEDS: ASPIRIN COATED 81 MG TABLET.EC PO SCH (11:24)
[2017-02-19] MEDS: HEPARIN NA (PORCINE) 5,000 UNITS/ML 1ML VIAL SQ SCH (11:24)
[2017-02-19] MEDS: PANTOPRAZOLE SOD 40 MG SUSPENSION PACKET PO SCH (11:24)
[2017-02-19] MEDS: FERROUS SO4 325 MG TABLET (FP) PO SCH (11:24)
[2017-02-19] MEDS: AZITHROMYCIN 250 MG TABLET PO SCH (11:25)
[2017-02-19] MEDS ORDERED: PANTOPRAZOLE 20 MG TABLET (FP) PO SCH (12:00)
[2017-02-19 13:48] VITALS: BP 111/65; PULSE 81; TEMP 98.1
--- NOTE | 2017-02-19 15:19 | MSN ---
Progress Note (SOAP) - Subjective Chief Complaint: syncopal episodes History of Present Illness: Patient was seen at bedside. She stated that she felt much better today. Denied having dizziness. Stated that she has been having a cough over the past 3 days, but has been feeling better. Denies head pain, shortness of breath, chest pain, abdominal pain. - Current Medications Current Medications: Active Medications Acetaminophen (Tylenol -) 650 mg PO Q4H PRN PRN Reason: FEVER OR PAIN Last Admin: 02/18/17 10:08 Dose: 650 mg Aspirin (Ecotrin -) 81 mg PO DAILY [facility] Last Admin: 02/19/17 11:24 Dose: 81 mg Atorvastatin Calcium (Lipitor -) 20 mg PO HS [facility] Last Admin: 02/18/17 22:45 Dose: 20 mg Docusate Sodium (Colace -) 100 mg PO BID [facility] Last Admin: 02/19/17 11:23 Dose: 100 mg Ferrous Sulfate (Feosol -) 325 mg PO BID [facility] Last Admin: 02/19/17 11:24 Dose: 325 mg Guaifenesin (Robitussin -) 10 ml PO Q6H PRN PRN Reason: COUGH Last Admin: 02/18/17 10:08 Dose: 10 ml Heparin Sodium (Porcine) (Heparin -) 5,000 unit SQ BID [facility] Last Admin: 02/19/17 11:24 Dose: 5,000 unit Insulin Aspart (Novolog Vial Sliding Scale -) 1 vial SQ [facility]IDAC [facility] PRN Reason: Protocol Last Admin: 02/19/17 06:16 Dose: Not Given Lisinopril (Prinivil) 10 mg PO DAILY [facility] Last Admin: 02/19/17 11:24 Dose: 10 mg Pantoprazole Sodium (Protonix -) 20 mg PO DAILY [facility] Last Admin: 02/19/17 11:56 Dose: 20 mg - Objective Vital Signs: Vital Signs Temperature 98.1 F 02/19/17 13:47 Pulse Rate 81 02/19/17 13:47 Respiratory Rate 18 02/19/17 09:00 Blood Pressure 111/65 02/19/17 13:47 O2 Sat by Pulse Oximetry (%) 96 02/19/17 09:00 Constitutional: Yes: Well Nourished, No Distress, Calm Cardiovascular: Yes: WNL, Regular Rate and Rhythm Respiratory: Yes: WNL, Regular, CTA Bilaterally Gastrointestinal: Yes: WNL, Normal Bowel Sounds, Soft Extremities: Yes: WNL, Calf Tenderness (slight left calf tenderness upon palpation) Peripheral Pulses WNL: Yes Edema: No Labs Lab Results: CBC, BMP 02/19/17 05:35 02/19/17 05:35 Imaging - Results Chest X-ray: Report Reviewed (no acute pathology) Assessment/Plan Patient is an 82 year old Maltese speaking woman with past medical history significant for CAD, HTN, HLD, dementia, and chronic vertigo who presented to the ED after a syncopal episode. 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 was found, no high grade block -s/p implantable loop recorder -follow up with cardio outpatient #Cough with fever -temperature trended down from 100.1 to 98.7 -chest x ray showed no acute pathology -continue Azithromycin (500mg PO daily) for 2 more days, continue Robitussin 10mg PO Q6H PRN #Iron deficiency anemia -hgb 8.5, hct 26.6, rbcs 3.50 -iron 16, normal TIBC and ferritin -continue ferrous sulfate (325mg PO BID) #CAD -continue ASA, lipitor #HTN -continue lisinopril #Hyperlipidemia -continue lipitor #GERD -continue omeprazole #FEN -fluids: not at this time -electrolytes: WNL -nutrition: diabetic diet #Prophylaxis -DVT: heparin 5000 unit SQ BID -GI: none at this time -deconditioning: PT ordered #Dispo -have PT see her -discharge today
--- NOTE | 2017-02-19 17:37 | PN ---
Teaching Attending Note Name of Resident: Hammad Kilpatrick ATTENDING PHYSICIAN STATEMENT I saw and evaluated the patient. I reviewed the resident's note and discussed the case with the resident. I agree with the resident's findings and plan as documented. SUBJECTIVE: no fever ro chills, no cp or SOB. OBJECTIVE: NAD , CV: RRR Lungs: CTAb ext : no edema ASSESSMENT AND PLAN: 82 y/o lady with h/o vertigo, CAD, HTN, HLP, who presented with syncope . she was found ot have 2nd degree Av block 1- Syncope, likely due to 2nd degree AV block. no seizure activity on EEG. - s/p loop recorder . will f/u with card - avoid AV maki blockers 2- Possible sinusitis vs URI: cont azithro x 2 more days 3- HTN: cont lisinopril, decrease home dose of 40 to 10 mg ( taking here ) , dose can be adjusted as outpt 4- Kaitlynn : resolved Dispo : dc home .
--- NOTE | 2017-02-19 19:26 | DS ---
Physical Exam: SUBJECTIVE: Patient seen and examined. She offers no new complaints. No acute over night events. She says she feels well and much better than yesterday. OBJECTIVE: Vital Signs Period Temp Pulse Resp BP Sys/Reyes Pulse Ox Last 24 Hr 98.1 F-99.2 F 77-86 18-20 100-115/60-74 95-96 PHYSICAL EXAM GENERAL: The patient is awake, alert, and fully oriented, in no acute distress. HEAD: Normal with no signs of trauma. EYES: PERRL, extraocular movements intact, sclera anicteric, conjunctiva clear. ENT: Ears normal, nares patent, oropharynx clear without exudates, moist mucous membranes. NECK: supple. LUNGS: Breath sounds equal, clear to auscultation bilaterally, no wheezes, no crackles, no accessory muscle use. HEART: Regular rate and rhythm, S1, S2 without murmur, rub or gallop. ABDOMEN: Soft, nontender, nondistended, normoactive bowel sounds, no guarding, no rebound, no hepatosplenomegaly, no masses. EXTREMITIES: 2+ pulses, warm, well-perfused, no edema. PSYCH: Normal mood, normal affect. SKIN: Warm, dry, normal turgor, no rashes or lesions noted. LABS Laboratory Results - last 24 hr 02/19/17 02/19/17 02/19/17 05:35 05:35 06:13 WBC 11.8 H RBC 3.50 L Hgb 8.5 L Hct 26.6 L MCV 76.0 L MCH 24.3 L MCHC 32.0 RDW 18.2 H Plt Count 342 MPV 8.1 Neutrophils % 70.1 Lymphocytes % 18.4 Monocytes % 9.2 Eosinophils % 1.1 Basophils % 1.2 Sodium 141 Potassium 3.5 Chloride 105 Carbon Dioxide 25 Anion Gap 11 BUN 17 D Creatinine 0.7 D POC Glucometer 79 Random Glucose 72 L Calcium 8.1 L Stool Occult Blood 02/19/17 02/19/17 15:10 15:35 WBC RBC Hgb Hct MCV MCH MCHC RDW Plt Count MPV Neutrophils % Lymphocytes % Monocytes % Eosinophils % Basophils % Sodium Potassium Chloride Carbon Dioxide Anion Gap BUN Creatinine POC Glucometer 102 Random Glucose Calcium Stool Occult Blood Negative HOSPITAL COURSE: Date of Admission:02/13/17 Date of Discharge: 02/19/17 Patient is an 82 year old patient who presented to the ED with syncope. The syncope was likely related to dehydration as patient also had FLASH. Patient was worked up for syncope as carotid dopplers, orthostatics and head CT were all negative. FLASH resolved with hydration. Patient was also complaining about a cough and was treated with Azithromycin. She was seen by cardiology and electrophysiology and had a loop recorder placed. She was initially thought to have a seizure but since EEG was negative, Keppra was stopped for low suspicion of seizures. Patient also was noted to have AV heart block. AV maki aldo medications were avoided. Patient was stable for discharge and was discharged with cardiology followup. Minutes to complete discharge: 40 Discharge Summary Reason For Visit: SYNCOPE Current Active Problems AV block, 2nd degree (Acute) Status post placement of implantable loop recorder (Acute) Syncope (Acute) Dementia (Chronic) HTN (hypertension) (Chronic) Hyperlipidemia (Chronic) Condition: Stable - Instructions Diet, Activity, Other Instructions: Please follow up with your primary care doctor and with your neurologist (Dr. Eddy) as well as your chicle grinder feeder (Dr. Whitney). you need to see your chicle grinder feeder to have your loop recorder evaluated You need to follow up on your EEG with Dr. Eddy as an out patient. You need to follow up on your loop recorder with Dr. Whitney as an out patient. You need to follow up on your cough with your primary care doctor. if you would like to see a new primary doctor i will refer you to Dr. Mace who is also georgian speaking Please do not take any A-V maki blockers such as beta blockers calcium channel blockers or digoxin Please take all your prescription medications as directed. Your blood sugar was slightly elevated. You need to follow up on this with your primary care doctor. In the meantime, you should try and improve your diet. Avoid eating sugar, and try to make sure you eat lean protein and vegetables. If your symptoms get worse or if you develop new symptoms, please return to the Emergency Department. please car pick up driver your medications from the pharmacy we decreased lisinopril dose to 10mg you may need a higher dose after you see your primary care doctor Referrals: Colby Welch MD [Staff Physician] - Blaise Bess MD [Staff Physician] - 1 Week Edgar Eddy MD [Staff Physician] - STAFF,NOT ON [Primary Care Provider] - 1 Week Damian Whitney MD [Staff Physician] - Disposition: HOME - Home Medications Comprehensive Discharge Medication List: Ambulatory Orders Aspirin Coated [Ecotrin -] 1 tab PO DAILY 06/24/15 Atorvastatin Ca [Lipitor] 20 mg PO HS 06/24/15 Meclizine HCl 25 mg PO BID 06/24/15 Omeprazole [Prilosec] 20 mg PO DAILY 06/24/15 Azithromycin [Zithromax 250mg Tablets -] 500 mg PO DAILY #2 tablet 02/19/17 Ferrous Sulfate [Feosol] 325 mg PO BID #60 tab 02/19/17 Lisinopril [Prinivil] 10 mg PO DAILY #30 tablet 02/19/17 Memantine HCl [Namenda -] 5 mg PO BID 02/19/17 Memantine HCl/Donepezil HCl [Namzaric 14 mg-10 mg Capsule] 1 each PO 02/19/17 This patient is new to me today: Yes Date on this admission: 02/19/17 Emergency Visit: Yes ED Registration Date: 02/13/17 Care time: The patient presented to the Emergency Department on the above date and was hospitalized for further evaluation of their emergent condition. Critical Care patient: No - Discharge Referral Referred to [facility] No
== END 2017-02-19 18:17 | disposition home or self-care (01) | DRG 261 ==
LOC: JER 13:04 → JERBED 16:51 → INTOOBSV 16:51 → J4W 02-12 14:42 → OBSVTOIN 02-13 10:54
PROVIDERS: ADMIT Internal Medicine; ATTEND Internal Medicine
PROC: 0JH602Z Insertion of Monitoring Device into Chest Subcutaneous Tissue and Fascia, Open Approach (ICD-10-PCS; principal; 2017-02-15 08:30)
DX: I44.1 Atrioventricular block, second degree (principal); N17.9 Acute kidney failure, unspecified; F03.90 Unspecified dementia, unspecified severity, without behavioral disturbance, psychotic disturbance, mood disturbance, and anxiety; I10 Essential (primary) hypertension; E78.5 Hyperlipidemia, unspecified; E86.0 Dehydration; I25.10 Atherosclerotic heart disease of native coronary artery without angina pectoris; D50.9 Iron deficiency anemia, unspecified; K21.9 Gastro-esophageal reflux disease without esophagitis; F09 Unspecified mental disorder due to known physiological condition; R55 Syncope and collapse; J32.9 Chronic sinusitis, unspecified
CPT/HCPCS: 36415; 70450-TC; 71010-TC; 80048; 80053; 80061; 81003; 81015; 82272; 82728; 82947; 83036; 83540; 83550; 83605; 83721; 83735; 84439; 84443; 84481; 84484; 85025; 85027; 85610; 85730; 87040; 87086; 93005; 93010; 93306-TC; 93880-TC; 95816; 97116-GP; 97161-GP; 99285-25; G0378; J1644

== ENCOUNTER 2018-12-29 16:38 | Emergency (ER) | payer OTHER ==
[2018-12-29 17:15] VITALS: BMI 22.9
--- NOTE | 2018-12-29 17:15 | PDOC ---
History of Present Illness - General Chief Complaint: Lightheaded Stated Complaint: hypotention/vertigo Time Seen by Provider: 12/29/18 17:14 Past History - Past Medical History Allergies/Adverse Reactions: Allergies Allergy/AdvReac Type Severity Reaction Status Date / Time No Known Allergies Allergy Verified 12/29/18 16:46 Home Medications: Ambulatory Orders Aspirin Coated [Ecotrin -] 1 tab PO DAILY 06/24/15 Atorvastatin Ca [Lipitor] 20 mg PO HS 06/24/15 Meclizine HCl 25 mg PO BID 06/24/15 Omeprazole [Prilosec] 20 mg PO DAILY 06/24/15 Azithromycin [Zithromax 250mg Tablets -] 500 mg PO DAILY #2 tablet 02/19/17 Ferrous Sulfate [Feosol] 325 mg PO BID #60 tab 02/19/17 Lisinopril [Prinivil] 10 mg PO DAILY #30 tablet 02/19/17 Memantine HCl [Namenda -] 5 mg PO BID 02/19/17 Memantine HCl/Donepezil HCl [Namzaric 14 mg-10 mg Capsule] 1 each PO 02/19/17 Cardiac Disorders: Yes COPD: No Dementia: Yes HTN: Yes Hypercholesterolemia: Yes - Surgical History Abdominal Surgery: Yes Appendectomy: Yes - Immunization History Immunization Up to Date: Yes - Suicide/Smoking/Psychosocial Hx Smoking History: Never smoked Have you smoked in the past 12 months: No Number of Cigarettes Smoked Daily: 0 Hx Alcohol Use: No Drug/Substance Use Hx: No Substance Use Type: None Hx Substance Use Treatment: No *Physical Exam - Vital Signs Last Vital Signs Temp Pulse Resp BP Pulse Ox 98.4 F 73 18 108/60 99 12/29/18 16:42 12/29/18 16:42 12/29/18 16:42 12/29/18 16:42 12/29/18 16:42 *DC/Admit/Observation/Transfer - Referrals Referrals: Trae Keller MD [Primary Care Provider] - - Patient Instructions - Post Discharge Activity
--- NOTE | 2018-12-29 17:58 | PDOC ---
History of Present Illness - General Chief Complaint: Lightheaded Stated Complaint: hypotention/vertigo Time Seen by Provider: 12/29/18 17:14 History Source: Patient, Care Provider, Family (maternal granddaughter) Exam Limitations: Dementia, Language Barrier (Maori only, granddaughter translated) - History of Present Illness Initial Comments: 83 yo F AV block, dementia, sciatica, hx of UTIs, p/w lightheadedness. Most history by maternal granddaughter and caregiver. Patient brought in by caregiver after having low blood pressure last night and this morning in the 90s. Patient was complaining of lightheadedness and did not want to get up. Had cough 4 days ago. Did not fall or have LOC. Currently she continues to feel lightheaded and weak, and feels short of breath. ROS SOB Lightheaded Weakness Left leg pain and back pain 2/2 sciatica Denies CP, N/V, fevers/chills, constipation/diarrhea, dysuria, or burning when urinating. 12/29/18 17:54 12/29/18 18:06 12/29/18 18:07 Past History - Past Medical History Allergies/Adverse Reactions: Allergies Allergy/AdvReac Type Severity Reaction Status Date / Time No Known Allergies Allergy Verified 12/29/18 16:46 Home Medications: Ambulatory Orders Aspirin Coated [Ecotrin -] 1 tab PO DAILY 06/24/15 Atorvastatin Ca [Lipitor] 20 mg PO HS 06/24/15 Meclizine HCl 25 mg PO BID 06/24/15 Omeprazole [Prilosec] 20 mg PO DAILY 06/24/15 Ferrous Sulfate [Feosol] 325 mg PO BID #60 tab 02/19/17 Lisinopril [Prinivil] 10 mg PO DAILY #30 tablet 02/19/17 Memantine HCl [Namenda -] 5 mg PO BID 02/19/17 Memantine HCl/Donepezil HCl [Namzaric 14 mg-10 mg Capsule] 1 each PO DAILY 02/19 Cardiac Disorders: Yes COPD: No Dementia: Yes HTN: Yes Hypercholesterolemia: Yes - Surgical History Abdominal Surgery: Yes Appendectomy: Yes - Immunization History Immunization Up to Date: Yes - Suicide/Smoking/Psychosocial Hx Smoking History: Never smoked Have you smoked in the past 12 months: No Number of Cigarettes Smoked Daily: 0 Hx Alcohol Use: No Drug/Substance Use Hx: No Substance Use Type: None Hx Substance Use Treatment: No Review of Systems - Review of Systems Able to Perform ROS?: Yes Comments:: 12/29/18 18:05 dry mucous membranes Is the patient limited Faroese proficient: Yes Constitutional: Yes: Weakness. No: Chills, Fever HEENTM: No: Eye Pain, Nose Pain, Hearing Loss, Throat Pain, Mouth Pain Respiratory: Yes: Shortness of Breath. No: Cough (had one 4 days ago, not currently) Cardiac (ROS): Yes: Lightheadedness. No: Chest Pain, Syncope ABD/GI: No: Nausea, Vomiting : No: Burning, Dysuria, Frequency Musculoskeletal: Yes: Back Pain (sciatica) Neurological: No: Headache, Tingling *Physical Exam - Vital Signs Last Vital Signs Temp Pulse Resp BP Pulse Ox 98.4 F 73 18 108/60 99 12/29/18 16:42 12/29/18 16:42 12/29/18 16:42 12/29/18 16:42 12/29/18 16:42 - Physical Exam General Appearance: Yes: Appropriately Dressed, Other (dry mucous membranes) HEENT: positive: EOMI, NUPUR, Normal ENT Inspection, Normal Voice, Symmetrical, Hearing Grossly Normal Neck: positive: Trachea midline, Supple Respiratory/Chest: positive: Lungs Clear, Normal Breath Sounds. negative: Respiratory Distress, Accessory Muscle Use Cardiovascular: positive: Regular Rhythm, Regular Rate Gastrointestinal/Abdominal: positive: Normal Bowel Sounds, Soft. negative: Tender, Protuberent, Distended, Guarding Musculoskeletal: positive: Normal Inspection. negative: CVA Tenderness Extremity: positive: Normal Inspection, Normal Range of Motion. negative: Tender Integumentary: positive: Normal Color, Dry, Warm Neurologic: positive: product engineering manager II-XII NML intact, Fully Oriented, Alert, Normal Mood/ Affect, Normal Response, Motor Strength 5/5. negative: Abnormal Cranial NS, Facial Droop, Numbness, Sensory Deficit ED Treatment Course - LABORATORY CBC & Chemistry Diagram: 12/29/18 18:13 12/29/18 18:13 Medical Decision Making - Medical Decision Making Patient has history of dehydration causing lightheadedness, but will also workup other etiologies such as ACS, PNA, UTI, anemia. EKG trops CXR CBC CMP UA , 1L LR 12/29/18 18:09 CBC reviewed. Hbg 10, higher than patient's baseline from previous visits. 12/29/18 18:55 Patient stable. Signed off to night team. F/u labs, CXR read, UA and culture, EKG. 12/29/18 19:02 *DC/Admit/Observation/Transfer - Referrals Referrals: Trae Keller MD [Primary Care Provider] - - Patient Instructions - Post Discharge Activity
[2018-12-29] MEDS ORDERED: SODIUM CHLORIDE 0.9% 1000 ML INFUS.BAG IV ONE (18:00)
[2018-12-29] MEDS ORDERED: LACTATED RINGERS SOLUTION 1,000 ML/1,000 ML INFUS.BAG IV SCH (18:15)
--- NOTE | 2018-12-29 18:46 | PDOC ---
Documentation entered by Noris Wei SCRIBE, acting as scribe for Dominique Patricia DO. Dominique Patricia DO: This documentation has been prepared by the Sanjuana miramontes Nirvannie, SCRIBE, under my direction and personally reviewed by me in its entirety. I confirm that the documentation accurately reflects all work, treatment, procedures, and medical decision making performed by me. Attending Attestation - Resident Resident Name: Zulay Centeno - ED Attending Attestation I have performed the following: I have examined & evaluated the patient, The case was reviewed & discussed with the resident, I agree w/resident's findings & plan - HPI HPI: 12/29/18 18:35 The patient is a 83 year old female, with a significant past medical history of AV block, dementia, sciatica, hx of UTIs, who presents to the emergency department with, hypotension, lightheadedness, and mild shortness of breath. Family notes her apartment does not have AC and just a fan. She denies any recent fevers or chills. He denies any recent chest pain. She denies any recent dysuria, frequency, urgency or hematuria. Allergies: NKDA Primary Care Physician: Dr. Trae Keller - Physicial Exam PE: 12/29/18 18:35 Constitutional: Awake, alert, oriented. No acute distress. Head: Normocephalic. Atraumatic Eyes: PERRL. EOMI. Conjunctivae are not pale. ENT: +Dry mucous membranes. Posterior pharynx without exudates or erythema. Uvula midline. Neck: Supple. Full ROM. No lymphadenopathy. Cardiovascular: Regular rate. Regular rhythm. S1, S2 regular. Distal pulses are 2+ and symmetric. Pulmonary/Chest: No evidence of respiratory distress. Clear to auscultation bilaterally No wheezing, rales or rhonchi. Abdominal: Soft and non-distended. There is no tenderness. No rebound, guarding or rigidity. No organomegaly. No palpable masses. Good bowel sounds. Back: No CVA tenderness. Musculoskeletal: No edema. No cyanosis. No clubbing. Full range of motion in all extremities. No calf tenderness. Radial/pedal pulses are intact and 2+ bilaterally Skin: Skin is warm and dry. No petechiae. No purpura. Neurological: Alert and oriented to person, place, and time. Cranial nerves II -XII are grossly intact. Normal speech. Strength is grossly symmetric. No sensory deficits. Psychiatric: Good eye contact. Normal interaction, affect and behavior. - Medical Decision Making 12/29/18 18:43 a/p: 83yo female with lightheadedness -normal po intake -no cp -had sob a few days ago with a cough, no fevers -no abd pain -denies dysuria, but has hx of UTI -denies weakness unilaterally -will send labs, ua, ucx, ekg, cxr -will start ivf hydration -will monitor and reassess 12/29/18 19:23 labs reviewed cxr clear ua negative pt feeling better after ivf hydration
[2018-12-29 18:47] LABS: BASO % 1.3 % (0-2.0); EOS % 3.5 % (0-4.5); HEMATOCRIT 32.3 % (32.4-45.2); LYMPH % 23.4 % (8-40); MCH 24.1 pg (25.7-33.7); MEAN CELL VOLUME 77.8 fl (80-96); MEAN PLT VOLUME 7.6 fl (7.5-11.1); MONO % 10.5 % (3.8-10.2); NEUT % 61.3 % (42.8-82.8); PLATELET COUNT 353 K/MM3 (134-434); RBC 4.15 M/mm3 (3.60-5.2); RDW 17.3 % (11.6-15.6); WHITE BLOOD COUNT 7.6 K/mm3 (4.0-10.0)
[2018-12-29 19:08] LABS: EPI CELLS 3.5 /HPF (0-5/HPF); HYALINE CASTS 4 /lpf (0-8); PH,URINE 5.5 (5.0-8.0); URINE APPEARANCE CLEAR; URINE BACTERIA 10.7 /hpf (NEGATIVE); URINE BILIRUBIN NEGATIVE (NEGATIVE); URINE COLOR YELLOW; URINE GLUCOSE (UA) NEGATIVE (NEGATIVE); URINE KETONE NEGATIVE (NEGATIVE); URINE LEUK ESTERASE TRACE (NEGATIVE); URINE NITRITE NEGATIVE (NEGATIVE); URINE PROTEIN NEGATIVE (NEGATIVE); URINE RBC 1 /hpf (0-4); URINE UROBILINOGEN 0.2 mg/dL (0.2-1.0); URINE WBC 3 /hpf (0-5)
[2018-12-29 19:08] LABS: ALBUMIN 3.3 g/dl (3.4-5.0); ALK PHOS 124 U/L (45-117); ANION GAP 4 MMOL/L (8-16); BILIRUBIN,TOTAL 0.2 mg/dL (0.2-1); CALCIUM 8.7 mg/dL (8.5-10.1); CHLORIDE 109 mmol/L (98-107); CO2 27 mmol/L (21-32); CREATININE 0.9 mg/dL (0.55-1.3); GLUCOSE,RANDOM 82 mg/dL (74-106); POTASSIUM 5.5 mmol/L (3.5-5.1); SGOT/AST 19 U/L (15-37); SGPT/ALT 15 U/L (13-61); SODIUM 140 mmol/L (136-145); TOT PROT 7.1 g/dl (6.4-8.2)
[2018-12-29 19:26] VITALS: TEMP 98.2
--- NOTE | 2018-12-29 19:42 | PDOC ---
*Physical Exam - Vital Signs Last Vital Signs Temp Pulse Resp BP Pulse Ox 98.2 F 72 18 128/63 95 12/29/18 16:46 12/29/18 16:46 12/29/18 16:42 12/29/18 16:46 12/29/18 16:46 ED Treatment Course - LABORATORY CBC & Chemistry Diagram: 12/29/18 18:13 12/29/18 18:13 - ADDITIONAL ORDERS Additional order review: Laboratory Results 12/29/18 12/29/18 19:01 18:13 Sodium 140 Potassium 5.5 H Chloride 109 H Carbon Dioxide 27 Anion Gap 4 L BUN 17.0 Creatinine 0.9 Est GFR (CKD-EPI)AfAm 69.50 Est GFR (CKD-EPI)NonAf 59.96 Random Glucose 82 Calcium 8.7 Total Bilirubin 0.2 AST 19 ALT 15 Alkaline Phosphatase 124 H Creatine Kinase 60 Troponin I < 0.02 Total Protein 7.1 Albumin 3.3 L Urine Color Yellow Urine Appearance Clear Urine pH 5.5 Ur Specific [place] 1.019 Urine Protein Negative Urine Glucose (UA) Negative Urine Ketones Negative Urine Blood Negative Urine Nitrite Negative Urine Bilirubin Negative Urine Urobilinogen 0.2 Ur Leukocyte Esterase Trace Urine WBC (Auto) 3 Urine RBC (Auto) 1 Urine Casts (Auto) 4 U Epithel Cells (Auto) 3.5 Urine Bacteria (Auto) 10.7 12/29/18 18:13 RBC 4.15 MCV 77.8 L MCHC 31.0 L RDW 17.3 H MPV 7.6 Neutrophils % 61.3 Lymphocytes % 23.4 D Monocytes % 10.5 H Eosinophils % 3.5 D Basophils % 1.3 - Medications Given in the ED: ED Medications Discontinued Medications Generic Name Dose Route Start Last Admin Trade Name Freq PRN Reason Stop Dose Admin Sodium Chloride 1,000 ml 12/29/18 18:00 12/29/18 18:26 Normal Saline - IV 12/29/18 18:01 Not Given ONCE ONE Medical Decision Making - Medical Decision Making Pt was signed out to me by resident Dr. Centeno, who explained the presentation, ED course, any pending results, and needed interventions. Pending results include EKG, CMP, UA. Pt is currently stable and is lying comfortably. 12/29/18 19:42 Chest x-ray showed no acute infiltrates or consolidations. CBC showed anemia, improved from pt baseline. CMP: K 5.5, no EKG changes EKst degree AV block (HR 62, OH 244, QRS 72, QTc 444). No significant ST segment or TWIs. No significant change from prior ECG (02/13/2017). UA does not show significant evidence for infection (trace leuk est, no nitrites ). UA culture sent to lab. Pt was ambulatory in ED to the bathroom. Pt has IVF running, will dispo to home after IVF. 12/29/18 19:44 Pt ambulatory in ED. Pt received IVF, BP improved. Considering normal lab results and imaging, pt can be discharged to home with follow-up. Pt advised to follow-up with PCP in 1-2 days. Strict return precautions provided with pt understanding. 12/29/18 20:17 *DC/Admit/Observation/Transfer Diagnosis at time of Disposition: Lightheaded - Discharge Dispostion Disposition: HOME Condition at time of disposition: Improved Decision to Admit order: No - Referrals Referrals: Trae Keller MD [Primary Care Provider] - - Patient Instructions Printed Discharge Instructions: DI for Dehydration -- Adult Additional Instructions: You were seen in the ER today for lightheadedness. The results of your labs and imaging today were normal. Please follow-up with your primary care doctor within 1-2 days to discuss your visit and make sure your symptoms have improved. Please return to the ER if you have any worsening lightheadedness, development of fevers or chills, loss of consciousness, inability to tolerate food or fluids, or any other concerns. - Post Discharge Activity
[2018-12-29 20:39] VITALS: BP 125/71; PULSE 75
--- NOTE | 2018-12-30 11:17 | EKG ---
Test Reason : Blood Pressure : / mmHG Vent. Rate : 063 BPM Atrial Rate : 063 BPM P-R Int : 236 ms QRS Dur : 078 ms QT Int : 442 ms P-R-T Axes : 046 043 046 degrees QTc Int : 452 ms SINUS RHYTHM WITH 1ST DEGREE A-V BLOCK POSSIBLE ANTERIOR INFARCT , AGE UNDETERMINED ABNORMAL ECG WHEN COMPARED WITH ECG OF 13-FEB-2017 11:57, QT HAS LENGTHENED Confirmed by FORTINO BARCENAS, ZONIA ([id number]) on 12/30/2018 11:17:30 AM Referred By: Confirmed By:ZONIA FREITAS MD
== END 2018-12-29 20:39 | disposition home or self-care (01) ==
LOC: JER 16:38
PROC: 3E0337Z Introduction of Electrolytic and Water Balance Substance into Peripheral Vein, Percutaneous Approach (ICD-10-PCS; principal; 2018-12-29)
DX: R42 Dizziness and giddiness (principal)
CPT/HCPCS: 36415; 71045-TC-FY; 80053; 81003; 82550; 84484; 85025; 87086; 87186; 93005; 93010; 96360; 99283-25

== ENCOUNTER 2022-01-30 12:45 | Inpatient (IN) | payer OTHER ==
[2022-01-30] MEDS ORDERED: SODIUM CHLORIDE 0.9% 500 ML INFUS.BAG IV ONE (15:44)
[2022-01-30 16:58] LABS: MEAN PLT VOLUME 7.7 fl (7.5-11.1)
[2022-01-30 17:01] LABS: BASO % 0.3 % (0-2.0); HEMATOCRIT 31.7 % (32.4-45.2); LYMPH % 4.2 % (8-40); MCH 23.3 pg (25.7-33.7); MCHC 31.6 g/dl (32.0-36.0); MEAN CELL VOLUME 73.7 fl (80-96); MONO % 5.8 % (3.8-10.2); NEUT % 89.7 % (42.8-82.8); PLATELET COUNT 358 10^3/uL (134-434); WHITE BLOOD COUNT 13.2 K/mm3 (4.0-10.0)
[2022-01-30 17:21] LABS: ALBUMIN 3.5 g/dl (3.4-5.0); CALCIUM 9.4 mg/dL (8.5-10.1)
[2022-01-30 17:26] LABS: BILIRUBIN,TOTAL 0.4 mg/dL (0.2-1); TOT PROT 7.5 g/dl (6.4-8.2)
[2022-01-30 18:52] LABS: EPI CELLS 8 /uL (0-25.1); HYALINE CASTS 6 /uL (0-3.1); URINE APPEARANCE CLEAR; URINE BACTERIA 2 /uL (0-1359); URINE BILIRUBIN NEGATIVE (NEGATIVE); URINE COLOR YELLOW; URINE GLUCOSE (UA) NEGATIVE (NEGATIVE); URINE KETONE NEGATIVE (NEGATIVE); URINE LEUK ESTERASE NEGATIVE (NEGATIVE); URINE NITRITE NEGATIVE (NEGATIVE); URINE PROTEIN 1+ (NEGATIVE); URINE RBC 4 /uL (0-23.9); URINE UROBILINOGEN 0.2 mg/dL (0.2-1.0); URINE WBC 5 /uL (0-25.8)
[2022-01-31] MEDS ORDERED: LISINOPRIL 10 MG TABLET ONE (09:50)
[2022-01-31] MEDS ORDERED: ASPIRIN COATED 81 MG TABLET.EC ONE (09:50)
[2022-01-31] MEDS ORDERED: FERROUS SO4 325 MG TABLET (FP) ONE ×2 (09:50→22:42)
[2022-01-31] MEDS ORDERED: HEPARIN NA (PORCINE) 5,000 UNITS/ML 1ML VIAL ONE ×2 (09:51→22:42)
[2022-01-31] MEDS: ASPIRIN COATED 81 MG TABLET.EC PO SCH (11:13)
[2022-01-31] MEDS: FERROUS SO4 325 MG TABLET (FP) PO SCH ×2 (11:13→22:48)
[2022-01-31] MEDS: LISINOPRIL 10 MG TABLET PO SCH (11:14)
[2022-01-31] MEDS: HEPARIN NA (PORCINE) 5,000 UNITS/ML 1ML VIAL SQ SCH ×2 (11:14→22:48)
[2022-01-31] MEDS: PANTOPRAZOLE 40 MG TABLET PO SCH (11:14)
[2022-01-31] MEDS: MEMANTINE HCL 5 MG TABLET (UD) PO SCH ×2 (11:14→22:48)
[2022-01-31] MEDS ORDERED: CEFTRIAXONE 1 GM/50 ML BAG ONE (14:52)
[2022-01-31] MEDS: CEFTRIAXONE 1 GM in DEXTROSE 5%-WATER - 50 ML IVPB SCH (14:55)
[2022-01-31] MEDS ORDERED: ATORVASTATIN CA 20 MG TABLET (FP) ONE (22:42)
[2022-01-31] MEDS: ATORVASTATIN CA 20 MG TABLET (FP) PO SCH (22:48)
[2022-02-01 09:02] LABS: BASO % 0.9 % (0-2.0); EOS % 1.8 % (0-4.5); HEMOGLOBIN 9.9 GM/dL (10.7-15.3); LYMPH % 40.8 % (8-40); MCH 23.2 pg (25.7-33.7); MCHC 30.9 g/dl (32.0-36.0); MEAN CELL VOLUME 74.9 fl (80-96); MEAN PLT VOLUME 7.9 fl (7.5-11.1); MONO % 11.7 % (3.8-10.2); NEUT % 44.8 % (42.8-82.8); PLATELET COUNT 365 10^3/uL (134-434); RBC 4.28 M/mm3 (3.60-5.2); RDW 18.1 % (11.6-15.6)
[2022-02-01] MEDS ORDERED: PANTOPRAZOLE 40 MG TABLET PO ONE (09:05)
[2022-02-01] MEDS ORDERED: ASPIRIN COATED 81 MG TABLET.EC ONE (09:05)
[2022-02-01] MEDS ORDERED: LISINOPRIL 10 MG TABLET ONE (09:06)
[2022-02-01] MEDS ORDERED: FERROUS SO4 325 MG TABLET (FP) ONE (09:06)
[2022-02-01] MEDS ORDERED: HEPARIN NA (PORCINE) 5,000 UNITS/ML 1ML VIAL ONE (09:06)
[2022-02-01] MEDS ORDERED: CEFTRIAXONE 1 GM/50 ML BAG ONE (09:07)
[2022-02-01] MEDS: PANTOPRAZOLE 40 MG TABLET PO SCH (09:39)
[2022-02-01] MEDS: HEPARIN NA (PORCINE) 5,000 UNITS/ML 1ML VIAL SQ SCH ×2 (09:39→22:36)
[2022-02-01] MEDS: ASPIRIN COATED 81 MG TABLET.EC PO SCH (09:39)
[2022-02-01] MEDS: LISINOPRIL 10 MG TABLET PO SCH (09:39)
[2022-02-01] MEDS: MEMANTINE HCL 5 MG TABLET (UD) PO SCH ×2 (09:39→22:36)
[2022-02-01] MEDS: CEFTRIAXONE 1 GM in DEXTROSE 5%-WATER - 50 ML IVPB SCH (09:39)
[2022-02-01] MEDS: FERROUS SO4 325 MG TABLET (FP) PO SCH ×2 (09:39→22:36)
[2022-02-01 09:47] LABS: CALCIUM 8.3 mg/dL (8.5-10.1)
[2022-02-01 09:48] LABS: ALBUMIN 3.4 g/dl (3.4-5.0); BLOOD UREA NITROGEN 8.8 mg/dL (7-18)
[2022-02-01 09:51] LABS: BILIRUBIN,TOTAL 0.8 mg/dL (0.2-1)
[2022-02-01 09:55] LABS: N-TERMINAL BNP 114.9 pg/ml (5-450)
[2022-02-01 13:23] VITALS: BMI 20.2
[2022-02-01] MEDS: LACTULOSE 20 GM/30 ML UDC (FOR ORAL USE ONLY) PO SCH ×2 (16:56→22:37)
[2022-02-01] MEDS: ATORVASTATIN CA 20 MG TABLET (FP) PO SCH (22:36)
[2022-02-02] MEDS: LACTULOSE 20 GM/30 ML UDC (FOR ORAL USE ONLY) PO SCH (07:42)
[2022-02-02 08:41] LABS: BASO % 1.1 % (0-2.0); EOS % 3.5 % (0-4.5); HEMATOCRIT 30.8 % (32.4-45.2); HEMOGLOBIN 9.7 GM/dL (10.7-15.3); LYMPH % 23.9 % (8-40); MCH 23.4 pg (25.7-33.7); MCHC 31.4 g/dl (32.0-36.0); MEAN CELL VOLUME 74.5 fl (80-96); MEAN PLT VOLUME 8.2 fl (7.5-11.1); MONO % 12.9 % (3.8-10.2); NEUT % 58.6 % (42.8-82.8); PLATELET COUNT 349 10^3/uL (134-434); RBC 4.13 M/mm3 (3.60-5.2); RDW 17.9 % (11.6-15.6); WHITE BLOOD COUNT 7.1 K/mm3 (4.0-10.0)
[2022-02-02 09:43] LABS: ALBUMIN 3.2 g/dl (3.4-5.0); BILIRUBIN,TOTAL 0.3 mg/dL (0.2-1); BLOOD UREA NITROGEN 28.5 mg/dL (7-18); CALCIUM 9.2 mg/dL (8.5-10.1); CREATININE 1.2 mg/dL (0.55-1.3); TOT PROT 6.9 g/dl (6.4-8.2)
[2022-02-02] MEDS ORDERED: MAGNESIUM CITRATE 300 ML BOTTLE PO ONE (10:00)
[2022-02-02] MEDS: CEFTRIAXONE 1 GM in DEXTROSE 5%-WATER - 50 ML IVPB SCH (10:34)
[2022-02-02] MEDS: FERROUS SO4 325 MG TABLET (FP) PO SCH ×2 (10:35→21:41)
[2022-02-02] MEDS: LISINOPRIL 10 MG TABLET PO SCH (10:35)
[2022-02-02] MEDS: HEPARIN NA (PORCINE) 5,000 UNITS/ML 1ML VIAL SQ SCH ×2 (10:35→21:43)
[2022-02-02] MEDS: MEMANTINE HCL 5 MG TABLET (UD) PO SCH (10:35)
[2022-02-02] MEDS: PANTOPRAZOLE 40 MG TABLET PO SCH (10:35)
[2022-02-02] MEDS: ASPIRIN COATED 81 MG TABLET.EC PO SCH (10:35)
[2022-02-02] MEDS: POLYETHYLENE GLYCOL (HEALTHYLAX) 3350 17 GM PACKET PO SCH ×2 (10:36→21:42)
[2022-02-02] MEDS: ATORVASTATIN CA 20 MG TABLET (FP) PO SCH (21:43)
[2022-02-03 07:24] LABS: BASO % 1.2 % (0-2.0); HEMATOCRIT 30.4 % (32.4-45.2); HEMOGLOBIN 9.6 GM/dL (10.7-15.3); LYMPH % 29.8 % (8-40); MCH 23.4 pg (25.7-33.7); MCHC 31.5 g/dl (32.0-36.0); MEAN CELL VOLUME 74.3 fl (80-96); MEAN PLT VOLUME 8.7 fl (7.5-11.1); MONO % 9.5 % (3.8-10.2); NEUT % 55.5 % (42.8-82.8); PLATELET COUNT 343 10^3/uL (134-434); RBC 4.09 M/mm3 (3.60-5.2); RDW 17.8 % (11.6-15.6); WHITE BLOOD COUNT 8.3 K/mm3 (4.0-10.0)
[2022-02-03 07:49] LABS: CALCIUM 9.2 mg/dL (8.5-10.1)
[2022-02-03 07:50] LABS: ALBUMIN 3.2 g/dl (3.4-5.0)
[2022-02-03 07:54] LABS: BILIRUBIN,TOTAL 0.3 mg/dL (0.2-1)
[2022-02-03 07:55] LABS: TOT PROT 6.8 g/dl (6.4-8.2)
[2022-02-03] MEDS: CEFTRIAXONE 1 GM in DEXTROSE 5%-WATER - 50 ML IVPB SCH (09:48)
[2022-02-03] MEDS: HEPARIN NA (PORCINE) 5,000 UNITS/ML 1ML VIAL SQ SCH ×2 (09:49→22:29)
[2022-02-03] MEDS: ASPIRIN COATED 81 MG TABLET.EC PO SCH (09:49)
[2022-02-03] MEDS: POLYETHYLENE GLYCOL (HEALTHYLAX) 3350 17 GM PACKET PO SCH ×2 (09:49→22:28)
[2022-02-03] MEDS: LISINOPRIL 10 MG TABLET PO SCH (09:49)
[2022-02-03] MEDS: FERROUS SO4 325 MG TABLET (FP) PO SCH ×2 (09:49→22:29)
[2022-02-03] MEDS: PANTOPRAZOLE 40 MG TABLET PO SCH (09:49)
[2022-02-03] MEDS: ATORVASTATIN CA 20 MG TABLET (FP) PO SCH (22:29)
[2022-02-04] MEDS: POLYETHYLENE GLYCOL (HEALTHYLAX) 3350 17 GM PACKET PO SCH ×2 (10:42→22:10)
[2022-02-04] MEDS: PANTOPRAZOLE 40 MG TABLET PO SCH (10:42)
[2022-02-04] MEDS: FERROUS SO4 325 MG TABLET (FP) PO SCH ×2 (10:42→21:59)
[2022-02-04] MEDS: LISINOPRIL 10 MG TABLET PO SCH (10:42)
[2022-02-04] MEDS: ASPIRIN COATED 81 MG TABLET.EC PO SCH (10:42)
[2022-02-04] MEDS: HEPARIN NA (PORCINE) 5,000 UNITS/ML 1ML VIAL SQ SCH ×2 (10:43→21:59)
[2022-02-04] MEDS: ATORVASTATIN CA 20 MG TABLET (FP) PO SCH (21:59)
[2022-02-05 07:19] LABS: HEMATOCRIT 28.8 % (32.4-45.2); HEMOGLOBIN 9.1 GM/dL (10.7-15.3); MCH 24.1 pg (25.7-33.7); MCHC 31.6 g/dl (32.0-36.0); MEAN CELL VOLUME 76.4 fl (80-96); MEAN PLT VOLUME 8.4 fl (7.5-11.1); PLATELET COUNT 337 10^3/uL (134-434); RBC 3.77 M/mm3 (3.60-5.2); RDW 18.4 % (11.6-15.6); WHITE BLOOD COUNT 6.8 K/mm3 (4.0-10.0)
[2022-02-05 07:41] LABS: BLOOD UREA NITROGEN 26.4 mg/dL (7-18); CREATININE 0.9 mg/dL (0.55-1.3)
[2022-02-05 07:42] LABS: ALBUMIN 3.1 g/dl (3.4-5.0); CALCIUM 8.9 mg/dL (8.5-10.1)
[2022-02-05 07:43] LABS: BILIRUBIN,TOTAL 0.4 mg/dL (0.2-1); TOT PROT 6.6 g/dl (6.4-8.2)
[2022-02-05] MEDS: POLYETHYLENE GLYCOL (HEALTHYLAX) 3350 17 GM PACKET PO SCH ×2 (09:54→22:01)
[2022-02-05] MEDS: LISINOPRIL 10 MG TABLET PO SCH (09:59)
[2022-02-05] MEDS: PANTOPRAZOLE 40 MG TABLET PO SCH (09:59)
[2022-02-05] MEDS: HEPARIN NA (PORCINE) 5,000 UNITS/ML 1ML VIAL SQ SCH ×2 (09:59→22:00)
[2022-02-05] MEDS: ASPIRIN COATED 81 MG TABLET.EC PO SCH (09:59)
[2022-02-05] MEDS: FERROUS SO4 325 MG TABLET (FP) PO SCH ×2 (09:59→22:00)
[2022-02-05 10:47] LABS: ANISOCYTOSIS 1+; MACROCYTOSIS 0; PLATELET ESTIMATE NORMAL
[2022-02-05] MEDS: ATORVASTATIN CA 20 MG TABLET (FP) PO SCH (22:00)
[2022-02-06] MEDS: POLYETHYLENE GLYCOL (HEALTHYLAX) 3350 17 GM PACKET PO SCH ×2 (10:03→21:33)
[2022-02-06] MEDS: HEPARIN NA (PORCINE) 5,000 UNITS/ML 1ML VIAL SQ SCH ×2 (10:05→21:33)
[2022-02-06] MEDS: PANTOPRAZOLE 40 MG TABLET PO SCH (10:07)
[2022-02-06] MEDS: LISINOPRIL 10 MG TABLET PO SCH (10:07)
[2022-02-06] MEDS: FERROUS SO4 325 MG TABLET (FP) PO SCH ×2 (10:07→21:33)
[2022-02-06] MEDS: ASPIRIN COATED 81 MG TABLET.EC PO SCH (10:07)
[2022-02-06] MEDS: ATORVASTATIN CA 20 MG TABLET (FP) PO SCH (21:33)
[2022-02-07 07:55] LABS: BLOOD UREA NITROGEN 22.2 mg/dL (7-18); CALCIUM 8.8 mg/dL (8.5-10.1)
[2022-02-07 07:59] LABS: CREATININE 0.9 mg/dL (0.55-1.3)
[2022-02-07 08:00] LABS: BILIRUBIN,TOTAL 0.6 mg/dL (0.2-1); TOT PROT 6.3 g/dl (6.4-8.2)
[2022-02-07] MEDS: LISINOPRIL 10 MG TABLET PO SCH (09:18)
[2022-02-07] MEDS: PANTOPRAZOLE 40 MG TABLET PO SCH (09:18)
[2022-02-07] MEDS: POLYETHYLENE GLYCOL (HEALTHYLAX) 3350 17 GM PACKET PO SCH ×2 (09:18→21:59)
[2022-02-07] MEDS: ASPIRIN COATED 81 MG TABLET.EC PO SCH (09:18)
[2022-02-07] MEDS: FERROUS SO4 325 MG TABLET (FP) PO SCH ×2 (09:18→22:00)
[2022-02-07] MEDS: ATORVASTATIN CA 20 MG TABLET (FP) PO SCH (22:00)
[2022-02-07] MEDS ORDERED: POTASSIUM CHLORIDE TABS 20 MEQ TABLET.ER (FP) PO ONE (22:03)
[2022-02-08] MEDS: LISINOPRIL 10 MG TABLET PO SCH (09:46)
[2022-02-08] MEDS: ASPIRIN COATED 81 MG TABLET.EC PO SCH (09:46)
[2022-02-08] MEDS: FERROUS SO4 325 MG TABLET (FP) PO SCH ×2 (09:46→21:04)
[2022-02-08] MEDS: PANTOPRAZOLE 40 MG TABLET PO SCH (09:46)
[2022-02-08] MEDS: POLYETHYLENE GLYCOL (HEALTHYLAX) 3350 17 GM PACKET PO SCH ×2 (09:51→21:03)
[2022-02-08] MEDS: CEFTRIAXONE 1 GM in DEXTROSE 5%-WATER - 50 ML IVPB SCH ×2 (14:27→16:00)
[2022-02-08] MEDS: ATORVASTATIN CA 20 MG TABLET (FP) PO SCH (21:04)
[2022-02-08 23:27] LABS: EPI CELLS 5 /uL (0-25.1); HYALINE CASTS 1 /uL (0-3.1); PH,URINE 5.5 (5.0-8.0); URINE APPEARANCE CLOUDY; URINE BACTERIA 29 /uL (0-1359); URINE BILIRUBIN NEGATIVE (NEGATIVE); URINE COLOR YELLOW; URINE GLUCOSE (UA) NEGATIVE (NEGATIVE); URINE KETONE TRACE (NEGATIVE); URINE LEUK ESTERASE NEGATIVE (NEGATIVE); URINE NITRITE NEGATIVE (NEGATIVE); URINE PROTEIN 1+ (NEGATIVE); URINE RBC 35 /uL (0-23.9); URINE UROBILINOGEN 0.2 mg/dL (0.2-1.0); URINE WBC 4 /uL (0-25.8)
[2022-02-08 23:52] LABS: URINE CRYSTALS CALCIUM OXALATE /hpf
[2022-02-09 08:26] LABS: BASO % 1.3 % (0-2.0); HEMATOCRIT 29.6 % (32.4-45.2); HEMOGLOBIN 9.4 GM/dL (10.7-15.3); LYMPH % 31.4 % (8-40); MCH 24.6 pg (25.7-33.7); MCHC 31.6 g/dl (32.0-36.0); MEAN CELL VOLUME 77.8 fl (80-96); MEAN PLT VOLUME 8.6 fl (7.5-11.1); MONO % 10.8 % (3.8-10.2); NEUT % 53.5 % (42.8-82.8); PLATELET COUNT 349 10^3/uL (134-434); RBC 3.81 M/mm3 (3.60-5.2)
[2022-02-09] MEDS: LISINOPRIL 10 MG TABLET PO SCH (09:48)
[2022-02-09] MEDS: PANTOPRAZOLE 40 MG TABLET PO SCH (09:48)
[2022-02-09] MEDS: ASPIRIN COATED 81 MG TABLET.EC PO SCH (09:48)
[2022-02-09] MEDS: FERROUS SO4 325 MG TABLET (FP) PO SCH ×2 (09:48→21:20)
[2022-02-09] MEDS: POLYETHYLENE GLYCOL (HEALTHYLAX) 3350 17 GM PACKET PO SCH ×2 (09:48→21:21)
[2022-02-09] MEDS: CEFTRIAXONE 1 GM in DEXTROSE 5%-WATER - 50 ML IVPB SCH (10:00)
[2022-02-09 10:14] LABS: ALBUMIN 3.2 g/dl (3.4-5.0); BILIRUBIN,TOTAL 0.5 mg/dL (0.2-1); CALCIUM 9.1 mg/dL (8.5-10.1); CREATININE 0.9 mg/dL (0.55-1.3); TOT PROT 6.5 g/dl (6.4-8.2)
[2022-02-09] MEDS: AMOX TR/POT CLAV 500MG/125MG TABLETS (FP) PO SCH (21:20)
[2022-02-09] MEDS: ATORVASTATIN CA 20 MG TABLET (FP) PO SCH (21:20)
[2022-02-10] MEDS: ASPIRIN COATED 81 MG TABLET.EC PO SCH (09:16)
[2022-02-10] MEDS: FERROUS SO4 325 MG TABLET (FP) PO SCH (09:16)
[2022-02-10] MEDS: LISINOPRIL 10 MG TABLET PO SCH (09:16)
[2022-02-10] MEDS: PANTOPRAZOLE 40 MG TABLET PO SCH (09:16)
[2022-02-10] MEDS: AMOX TR/POT CLAV 500MG/125MG TABLETS (FP) PO SCH (09:16)
[2022-02-10] MEDS: POLYETHYLENE GLYCOL (HEALTHYLAX) 3350 17 GM PACKET PO SCH (09:17)
[2022-02-10 09:51] VITALS: BP 134/72; PULSE 63; RESP 18; TEMP 98.4
== END 2022-02-10 12:56 | DRG 312 ==
LOC: JER 12:45 → UNDOADMOB 17:13 → JERBED 17:13 → INTOOBSV 01-31 00:21 → OBSVTOIN 01-31 00:21 → JERBED 01-31 16:28 → J4W 02-01 12:47 → OBSVTOIN 02-03 11:33
PROVIDERS: ADMIT Internal Medicine; ATTEND Internal Medicine
DX: R55 Syncope and collapse (principal); N39.0 Urinary tract infection, site not specified; E78.5 Hyperlipidemia, unspecified; K56.41 Fecal impaction; I25.119 Atherosclerotic heart disease of native coronary artery with unspecified angina pectoris; M54.30 Sciatica, unspecified side; D64.9 Anemia, unspecified; B95.7 Other staphylococcus as the cause of diseases classified elsewhere; D72.829 Elevated white blood cell count, unspecified; G30.9 Alzheimer's disease, unspecified; E87.6 Hypokalemia; I12.9 Hypertensive chronic kidney disease with stage 1 through stage 4 chronic kidney disease, or unspecified chronic kidney disease; N18.9 Chronic kidney disease, unspecified; F02.80 Dementia in other diseases classified elsewhere, unspecified severity, without behavioral disturbance, psychotic disturbance, mood disturbance, and anxiety; Z95.0 Presence of cardiac pacemaker
CPT/HCPCS: 36415; 70450-TC; 71045-TC-FY; 74019-TC-FY; 74177-TC; 80053; 80061; 81003; 82272; 82607; 83036; 83880; 84436; 84443; 84484; 85025; 86780; 87040; 87086; 87186; 93005; 93010; 93306-TC; 93880-TC; 97116-GP; 97162-GP; 99285-25; C9803-CS; G0378; J1644; U0003; U0005

== ENCOUNTER 2022-12-11 18:58 | Emergency (ER) | payer OTHER ==
[2022-12-11 19:14] VITALS: BMI 18.8
[2022-12-11] MEDS ORDERED: ASPIRIN 81 MG CHEWABLE TABLETS PO ONE (19:26)
[2022-12-11] MEDS ORDERED: ASPIRIN 81 MG CHEWABLE TABLETS ONE (19:34)
[2022-12-11] MEDS ORDERED: TICAGRELOR 60 MG TABLET PO ONE (19:46)
[2022-12-11] MEDS ORDERED: HEPARIN NA (PORCINE) 5,000 UNITS/ML 1ML VIAL IVPUSH ONE (19:48)
[2022-12-11] MEDS ORDERED: HEPARIN NA (PORCINE) 5,000 UNITS/ML 1ML VIAL IVPUSH PRN ×2 (19:50)
[2022-12-11 19:54] LABS: BASO % 0.9 % (0-2.0); EOS % 0.3 % (0-4.5); HEMATOCRIT 41.8 % (32.4-45.2); HEMOGLOBIN 13.6 GM/dL (10.7-15.3); LYMPH % 4.2 % (8-40); MCH 30.1 pg (25.7-33.7); MCHC 32.4 g/dl (32.0-36.0); MEAN CELL VOLUME 92.8 fl (80-96); MEAN PLT VOLUME 8.1 fl (7.5-11.1); MONO % 7.8 % (3.8-10.2); NEUT % 86.8 % (42.8-82.8); PLATELET COUNT 265 10^3/uL (134-434); RBC 4.51 M/mm3 (3.60-5.2); RDW 14.1 % (11.6-15.6); WHITE BLOOD COUNT 13.9 K/mm3 (4.0-10.0)
[2022-12-11] MEDS ORDERED: TICAGRELOR 90 MG TABLET PO ONE (19:54)
[2022-12-11] MEDS ORDERED: HEPARIN - 25,000 UNIT in SODIUM CHLORIDE 495 ML IV SCH (20:00)
[2022-12-11] MEDS ORDERED: HEPARIN NA (PORCINE) 5,000 UNITS/ML 1ML VIAL ONE (20:09)
[2022-12-11 20:11] VITALS: BP 108/69; PULSE 82; RESP 18; TEMP 98.1
[2022-12-11 20:12] LABS: INR 1.02 (0.83-1.09); PROTHROMBIN TIME (PATIENT) 11.8 SEC (9.7-13.0)
[2022-12-11 20:13] LABS: POTASSIUM 4.8 mmol/L (3.5-5.1)
[2022-12-11 20:14] LABS: ACTIVATED PTT 24.5 SECONDS (25.2-36.5)
[2022-12-11 20:15] LABS: CALCIUM 9.8 mg/dL (8.5-10.1)
[2022-12-11 20:16] LABS: ALBUMIN 3.5 g/dl (3.4-5.0)
[2022-12-11] MEDS ORDERED: HEPARIN INFUSION - 25,000 UNITS/500 ML INFUS.BAG IVPB ONE (20:17)
[2022-12-11 20:19] LABS: CREATININE 1.7 mg/dL (0.55-1.3)
[2022-12-11 20:20] LABS: TOT PROT 7.5 g/dl (6.4-8.2)
[2022-12-11 20:21] LABS: BILIRUBIN,TOTAL 0.3 mg/dL (0.2-1)
[2022-12-11] MEDS ORDERED: SODIUM CHLORIDE 0.9% 500 ML INFUS.BAG IV STA (20:23)
== END 2022-12-11 20:32 | disposition short-term general hospital (02) ==
LOC: JER 18:58
PROC: 3E033GC Introduction of Other Therapeutic Substance into Peripheral Vein, Percutaneous Approach (ICD-10-PCS; principal; 2022-12-11)
DX: R55 Syncope and collapse (principal); R11.2 Nausea with vomiting, unspecified; R10.13 Epigastric pain; M79.602 Pain in left arm; I21.3 ST elevation (STEMI) myocardial infarction of unspecified site
CPT/HCPCS: 36415; 71045-TC-FY; 80053; 82550; 82553; 84484; 85025; 85610; 85730; 86850; 86900; 86901; 87635; 93005; 93010; 96374; 99285-25; J1644

== ENCOUNTER 2023-01-29 11:31 | Inpatient (IN) | payer OTHER ==
[2023-01-29] MEDS ORDERED: ACETAMINOPHEN 500 MG TABLET (FP) PO ONE (12:37)
[2023-01-29] MEDS ORDERED: ACETAMINOPHEN 500 MG TABLET (FP) ONE (13:07)
[2023-01-29 13:09] LABS: BASO % 1.2 % (0-2.0); EOS % 1.6 % (0-4.5); HEMATOCRIT 38.8 % (32.4-45.2); HEMOGLOBIN 12.7 GM/dL (10.7-15.3); LYMPH % 21.1 % (8-40); MCH 30.3 pg (25.7-33.7); MCHC 32.8 g/dl (32.0-36.0); MEAN CELL VOLUME 92.3 fl (80-96); MEAN PLT VOLUME 7.7 fl (7.5-11.1); MONO % 10.3 % (3.8-10.2); NEUT % 65.8 % (42.8-82.8); PLATELET COUNT 311 10^3/uL (134-434); WHITE BLOOD COUNT 5.1 K/mm3 (4.0-10.0)
[2023-01-29 13:16] LABS: INR 1.05 (0.83-1.09); PROTHROMBIN TIME (PATIENT) 12.2 SEC (9.7-13.0)
[2023-01-29 13:18] LABS: ACTIVATED PTT 26.5 SECONDS (25.2-36.5)
[2023-01-29 13:26] LABS: POTASSIUM 4.4 mmol/L (3.5-5.1)
[2023-01-29 13:27] LABS: CALCIUM 9.4 mg/dL (8.5-10.1)
[2023-01-29 13:28] LABS: ALBUMIN 3.4 g/dl (3.4-5.0); BLOOD UREA NITROGEN 21.8 mg/dL (7-18); MAGNESIUM 2.3 mg/dL (1.8-2.4)
[2023-01-29 13:32] LABS: BILIRUBIN,TOTAL 0.2 mg/dL (0.2-1); CREATININE 1.2 mg/dL (0.55-1.3); TOT PROT 7.1 g/dl (6.4-8.2)
[2023-01-29 13:36] LABS: N-TERMINAL BNP 265.8 pg/ml (5-450)
[2023-01-29 15:29] LABS: POTASSIUM 4.1 mmol/L (3.5-5.1)
[2023-01-29 15:31] LABS: CALCIUM 9.4 mg/dL (8.5-10.1)
[2023-01-29 15:34] LABS: CREATININE 1.1 mg/dL (0.55-1.3)
[2023-01-29] MEDS ORDERED: ATORVASTATIN CA 40 MG TABLET (FP) ONE (21:14)
[2023-01-29] MEDS ORDERED: METOPROLOL TARTRATE 25 MG TABLET (FP) ONE (21:14)
[2023-01-29] MEDS ORDERED: MELATONIN 5 MG TABLETS ONE (21:14)
[2023-01-29] MEDS ORDERED: ASCORBIC ACID 500 MG TABLET (FP) ONE (21:15)
[2023-01-29] MEDS ORDERED: MIRTAZAPINE 15 MG TABLET (FP) ONE (21:15)
[2023-01-29] MEDS: ATORVASTATIN CA 40 MG TABLET (FP) PO SCH (21:20)
[2023-01-29] MEDS: ASCORBIC ACID 500 MG TABLET (FP) PO SCH (21:21)
[2023-01-29] MEDS: MELATONIN 5 MG TABLETS PO SCH (21:21)
[2023-01-29] MEDS: METOPROLOL TARTRATE 25 MG TABLET (FP) PO SCH (21:21)
[2023-01-29] MEDS ORDERED: PATIENT'S OWN MEDICATION (NON-FORMULARY) (Ascorbic Acid/Ascorbate Sodium [Vitamin C 500 Mg PO SCH (22:00)
[2023-01-29] MEDS ORDERED: MIRTAZAPINE 30 MG TABLET PO SCH (22:00)
[2023-01-30 07:25] LABS: BASO % 1.3 % (0-2.0); EOS % 2.1 % (0-4.5); HEMATOCRIT 37.8 % (32.4-45.2); HEMOGLOBIN 12.3 GM/dL (10.7-15.3); LYMPH % 18.5 % (8-40); MCH 30.3 pg (25.7-33.7); MCHC 32.4 g/dl (32.0-36.0); MEAN CELL VOLUME 93.6 fl (80-96); MONO % 10.6 % (3.8-10.2); NEUT % 67.5 % (42.8-82.8); PLATELET COUNT 301 10^3/uL (134-434); RBC 4.04 M/mm3 (3.60-5.2); RDW 13.8 % (11.6-15.6); WHITE BLOOD COUNT 5.1 K/mm3 (4.0-10.0)
[2023-01-30 07:44] LABS: POTASSIUM 3.8 mmol/L (3.5-5.1)
[2023-01-30 07:45] LABS: CALCIUM 9.1 mg/dL (8.5-10.1)
[2023-01-30 07:46] LABS: ALBUMIN 3.2 g/dl (3.4-5.0); BLOOD UREA NITROGEN 23.6 mg/dL (7-18); MAGNESIUM 2.2 mg/dL (1.8-2.4)
[2023-01-30 07:50] LABS: BILIRUBIN,TOTAL 0.3 mg/dL (0.2-1); CHOLESTEROL 161 mg/dL (50-200); CREATININE 1.1 mg/dL (0.55-1.3); TOT PROT 6.6 g/dl (6.4-8.2)
[2023-01-30 07:51] LABS: LDL CHOLESTEROL (ONLY SJRH) 102 mg/dL (5-100)
[2023-01-30 07:52] LABS: PHOSPHOROUS 2.5 mg/dL (2.5-4.9)
[2023-01-30 07:53] LABS: HDL CHOLESTEROL 42 mg/dL (40-60)
[2023-01-30] MEDS ORDERED: METOPROLOL TARTRATE 25 MG TABLET (FP) ONE (12:10)
[2023-01-30] MEDS ORDERED: ASPIRIN 81 MG CHEWABLE TABLETS ONE (12:10)
[2023-01-30] MEDS ORDERED: DULoxetine HCL 30 MG CAPSULE.DR PO ONE (12:10)
[2023-01-30] MEDS ORDERED: ASCORBIC ACID 500 MG TABLET (FP) ONE (12:10)
[2023-01-30] MEDS: ENOXAPARIN NA (PORCINE) 30 MG/0.3 ML DISP.SYRIN SQ SCH (12:11)
[2023-01-30] MEDS ORDERED: ENOXAPARIN NA (PORCINE) 30 MG/0.3 ML DISP.SYRIN SQ ONE (12:11)
[2023-01-30] MEDS: ASPIRIN COATED 81 MG TABLET.EC PO SCH (12:11)
[2023-01-30] MEDS: METOPROLOL TARTRATE 25 MG TABLET (FP) PO SCH ×2 (12:11→21:05)
[2023-01-30] MEDS: DULoxetine HCL 30 MG CAPSULE.DR PO SCH (12:11)
[2023-01-30] MEDS: CALCIUM 500MG/VIT-D 200 UNITS COMBO TABLET (FP) PO SCH (12:12)
[2023-01-30] MEDS: ASCORBIC ACID 500 MG TABLET (FP) PO SCH ×2 (12:12→21:05)
[2023-01-30] MEDS: POLYETHYLENE GLYCOL (HEALTHYLAX) 3350 17 GM PACKET PO SCH ×3 (15:30→21:05)
[2023-01-30] MEDS ORDERED: MIRTAZAPINE 15 MG TABLET (FP) ONE (20:42)
[2023-01-30] MEDS: ATORVASTATIN CA 40 MG TABLET (FP) PO SCH (21:05)
[2023-01-30] MEDS: MELATONIN 5 MG TABLETS PO SCH (21:05)
[2023-01-30] MEDS: MIRTAZAPINE 15 MG TABLET (FP) PO SCH (21:28)
[2023-01-31] MEDS: ASPIRIN COATED 81 MG TABLET.EC PO SCH (09:52)
[2023-01-31] MEDS: METOPROLOL TARTRATE 25 MG TABLET (FP) PO SCH ×2 (09:52→21:05)
[2023-01-31] MEDS: POLYETHYLENE GLYCOL (HEALTHYLAX) 3350 17 GM PACKET PO SCH ×2 (09:52→21:05)
[2023-01-31] MEDS: DULoxetine HCL 30 MG CAPSULE.DR PO SCH (09:52)
[2023-01-31] MEDS: ENOXAPARIN NA (PORCINE) 30 MG/0.3 ML DISP.SYRIN SQ SCH (09:52)
[2023-01-31] MEDS: CALCIUM 500MG/VIT-D 200 UNITS COMBO TABLET (FP) PO SCH (09:52)
[2023-01-31] MEDS: ASCORBIC ACID 500 MG TABLET (FP) PO SCH ×2 (09:52→21:05)
[2023-01-31] MEDS: LOSARTAN 50MG/HCTZ 12.5MG 1 TAB PO SCH (11:55)
[2023-01-31] MEDS: ATORVASTATIN CA 40 MG TABLET (FP) PO SCH (21:05)
[2023-01-31] MEDS: MIRTAZAPINE 15 MG TABLET (FP) PO SCH (21:05)
[2023-01-31] MEDS: MELATONIN 5 MG TABLETS PO SCH (21:06)
[2023-02-01] MEDS: ENOXAPARIN NA (PORCINE) 30 MG/0.3 ML DISP.SYRIN SQ SCH (09:11)
[2023-02-01] MEDS: METOPROLOL TARTRATE 25 MG TABLET (FP) PO SCH ×2 (09:12→21:07)
[2023-02-01] MEDS: DULoxetine HCL 30 MG CAPSULE.DR PO SCH (09:12)
[2023-02-01] MEDS: POLYETHYLENE GLYCOL (HEALTHYLAX) 3350 17 GM PACKET PO SCH ×2 (09:12→21:06)
[2023-02-01] MEDS: ASPIRIN COATED 81 MG TABLET.EC PO SCH (09:12)
[2023-02-01] MEDS: ASCORBIC ACID 500 MG TABLET (FP) PO SCH ×2 (09:12→21:06)
[2023-02-01] MEDS: LOSARTAN 50MG/HCTZ 12.5MG 1 TAB PO SCH (09:12)
[2023-02-01] MEDS: CALCIUM 500MG/VIT-D 200 UNITS COMBO TABLET (FP) PO SCH (09:12)
[2023-02-01 12:37] VITALS: BMI 18.6
[2023-02-01] MEDS: MELATONIN 5 MG TABLETS PO SCH (21:06)
[2023-02-01] MEDS: ATORVASTATIN CA 40 MG TABLET (FP) PO SCH (21:07)
[2023-02-01] MEDS: MIRTAZAPINE 15 MG TABLET (FP) PO SCH (21:07)
[2023-02-01 22:49] VITALS: BP 122/78; PULSE 79; RESP 19; TEMP 98.6
== END 2023-02-01 21:25 | DRG 313 ==
LOC: JER 11:31 → JERBED 15:08 → J4W 01-30 14:49
PROVIDERS: ADMIT Internal Medicine
DX: R07.89 Other chest pain (principal); G30.9 Alzheimer's disease, unspecified; F02.80 Dementia in other diseases classified elsewhere, unspecified severity, without behavioral disturbance, psychotic disturbance, mood disturbance, and anxiety; E78.5 Hyperlipidemia, unspecified; E78.00 Pure hypercholesterolemia, unspecified; M54.30 Sciatica, unspecified side; I44.7 Left bundle-branch block, unspecified; K59.00 Constipation, unspecified; I25.10 Atherosclerotic heart disease of native coronary artery without angina pectoris; M79.7 Fibromyalgia; G47.00 Insomnia, unspecified; D64.9 Anemia, unspecified; F32.A Depression, unspecified; I12.9 Hypertensive chronic kidney disease with stage 1 through stage 4 chronic kidney disease, or unspecified chronic kidney disease; N18.9 Chronic kidney disease, unspecified; E11.22 Type 2 diabetes mellitus with diabetic chronic kidney disease; Z95.0 Presence of cardiac pacemaker; Z86.73 Personal history of transient ischemic attack (TIA), and cerebral infarction without residual deficits
CPT/HCPCS: 36415; 71045-TC-FY; 73630-TC-LT; 73630-TC-RT-FY; 80048; 80053; 80061; 83036; 83735; 83880; 84100; 84436; 84443; 84484; 85025; 85610; 85730; 87635; 93005; 93010; 97116-GP; 97161-GP; 99285-25

== ENCOUNTER 2023-07-27 10:39 | Inpatient (IN) | payer OTHER ==
[2023-07-27 13:29] LABS: BASO % 1.3 % (0-2.0); EOS % 3.1 % (0-4.5); HEMATOCRIT 15.4 % (32.4-45.2); LYMPH % 34.4 % (8-40); MCH 20.3 pg (25.7-33.7); MCHC 29.1 g/dl (32.0-36.0); MEAN CELL VOLUME 69.7 fl (80-96); MEAN PLT VOLUME 7.3 fl (7.5-11.1); MONO % 15.6 % (3.8-10.2); NEUT % 45.6 % (42.8-82.8); PLATELET COUNT 431 10^3/uL (134-434); RBC 2.21 M/mm3 (3.60-5.2); RDW 17.4 % (11.6-15.6); RETICULOCYTES 3.28 % (0.5-1.5)
[2023-07-27 13:32] LABS: INR 1.15 (0.83-1.09); PROTHROMBIN TIME (PATIENT) 13.3 SEC (9.7-13.0)
[2023-07-27 13:34] LABS: HEMOGLOBIN 4.5 GM/dL (10.7-15.3)
[2023-07-27 13:35] LABS: ACTIVATED PTT 27.4 SECONDS (25.2-36.5)
[2023-07-27 13:47] LABS: CHLORIDE 112 mmol/L (98-107); SODIUM 142 mmol/L (136-145)
[2023-07-27 13:50] LABS: ALBUMIN 2.8 g/dl (3.4-5.0); ANION GAP 4 mmol/L (4-13); BLOOD UREA NITROGEN 31.1 mg/dL (7-18); CALCIUM 8.9 mg/dL (8.5-10.1); CO2 26 mmol/L (21-32); GLUCOSE,RANDOM 84 mg/dL (74-106)
[2023-07-27 13:52] LABS: BILIRUBIN,DIRECT 0.1 mg/dL (0.0-0.2)
[2023-07-27 13:53] LABS: CREATININE 0.8 mg/dL (0.55-1.3); SGOT/AST 9 U/L (15-37); SGPT/ALT 12 U/L (13-61)
[2023-07-27 13:54] LABS: BILIRUBIN,TOTAL 0.3 mg/dL (0.2-1); TOT PROT 6.6 g/dl (6.4-8.2); TOTAL IRON BINDING CAPACITY 427 ug/dL (250-450)
[2023-07-27 13:56] LABS: ALK PHOS 97 U/L (45-117)
[2023-07-27 13:58] LABS: LDH 182 U/L (84-246)
[2023-07-27 14:19] LABS: IRON SERUM < 5 ug/dL (50-175)
[2023-07-27 14:51] LABS: ANISOCYTOSIS 0; MACROCYTOSIS 0; OVALOCYTE 1+; TARGET CELLS 1+
[2023-07-27] MEDS: MIRTAZAPINE 15 MG TABLET (FP) PO SCH (23:01)
[2023-07-27] MEDS: MELATONIN 5 MG TABLETS PO SCH (23:01)
[2023-07-27] MEDS: ATORVASTATIN CA 40 MG TABLET (FP) PO SCH (23:01)
[2023-07-28 04:13] VITALS: BMI 24.1
[2023-07-28 09:17] LABS: HEMATOCRIT 27.2 % (32.4-45.2); HEMOGLOBIN 8.5 GM/dL (10.7-15.3); MCH 23.8 pg (25.7-33.7); MCHC 31.3 g/dl (32.0-36.0); MEAN PLT VOLUME 7.6 fl (7.5-11.1); PLATELET COUNT 368 10^3/uL (134-434); RBC 3.58 M/mm3 (3.60-5.2); RDW 19.5 % (11.6-15.6); WHITE BLOOD COUNT 4.4 K/mm3 (4.0-10.0)
[2023-07-28 10:22] LABS: POTASSIUM 4.2 mmol/L (3.5-5.1)
[2023-07-28 10:35] LABS: ALBUMIN 2.8 g/dl (3.4-5.0)
[2023-07-28 10:39] LABS: CALCIUM 9.2 mg/dL (8.5-10.1)
[2023-07-28 10:40] LABS: MAGNESIUM 2.3 mg/dL (1.8-2.4)
[2023-07-28 10:41] LABS: CREATININE 0.8 mg/dL (0.55-1.3); PHOSPHOROUS 3.1 mg/dL (2.5-4.9)
[2023-07-28 10:43] LABS: BILIRUBIN,TOTAL 0.7 mg/dL (0.2-1)
[2023-07-28 10:44] LABS: TOT PROT 6.5 g/dl (6.4-8.2)
[2023-07-28] MEDS: MAGNESIUM HYDROX 2400MG/30ML ORAL SUSPENSION 30 ML CUP PO SCH (10:50)
[2023-07-28] MEDS: ASCORBIC ACID 500 MG TABLET (FP) PO SCH (10:50)
[2023-07-28] MEDS: BISACODYL 10 MG SUPP.RECT RC SCH (10:51)
[2023-07-28] MEDS: ASPIRIN COATED 81 MG TABLET.EC PO SCH (10:51)
[2023-07-28] MEDS: DIVALPROEX SODIUM 125 MG TABLET E.C. PO SCH (10:51)
[2023-07-28 11:06] LABS: ANISOCYTOSIS 0; HELMET CELLS 0; HOWELL-JOLLY BODIES 0; MACROCYTOSIS 0; OVALOCYTE 0; ROULEAU 0; SICKELED CELLS 0; TARGET CELLS 0; TEAR DROP CELLS 0; TOXIC GRANULATION 0
[2023-07-28] MEDS: PANTOPRAZOLE 40 MG TABLET PO SCH (21:17)
[2023-07-29 09:30] LABS: BASO % 1.2 % (0-2.0); EOS % 6.7 % (0-4.5); HEMATOCRIT 26.1 % (32.4-45.2); HEMOGLOBIN 8.4 GM/dL (10.7-15.3); MCH 24.3 pg (25.7-33.7); MCHC 32.2 g/dl (32.0-36.0); MEAN CELL VOLUME 75.5 fl (80-96); MEAN PLT VOLUME 7.3 fl (7.5-11.1); NEUT % 49.1 % (42.8-82.8); PLATELET COUNT 344 10^3/uL (134-434); RBC 3.45 M/mm3 (3.60-5.2); RDW 19.9 % (11.6-15.6); WHITE BLOOD COUNT 4.5 K/mm3 (4.0-10.0)
[2023-07-29] MEDS: IRON SUCROSE INJECTION 200 MG in SODIUM CHLORIDE 90 ML IVPB ONE (14:00)
[2023-07-30 11:17] LABS: INR 1.17 (0.83-1.09); PROTHROMBIN TIME (PATIENT) 13.5 SEC (9.7-13.0)
[2023-07-30 11:19] LABS: BASO % 1.2 % (0-2.0); EOS % 5.1 % (0-4.5); HEMATOCRIT 29.5 % (32.4-45.2); HEMOGLOBIN 9.4 GM/dL (10.7-15.3); LYMPH % 38.5 % (8-40); MCH 24.5 pg (25.7-33.7); MEAN CELL VOLUME 76.8 fl (80-96); MEAN PLT VOLUME 7.4 fl (7.5-11.1); MONO % 15.8 % (3.8-10.2); NEUT % 39.4 % (42.8-82.8); PLATELET COUNT 405 10^3/uL (134-434); RBC 3.85 M/mm3 (3.60-5.2); RDW 20.6 % (11.6-15.6); WHITE BLOOD COUNT 5.7 K/mm3 (4.0-10.0)
[2023-07-30 11:57] LABS: POTASSIUM 4.1 mmol/L (3.5-5.1)
[2023-07-30 12:02] LABS: ALBUMIN 2.8 g/dl (3.4-5.0); BLOOD UREA NITROGEN 20.7 mg/dL (7-18); CALCIUM 9.1 mg/dL (8.5-10.1)
[2023-07-30 12:05] LABS: CREATININE 0.8 mg/dL (0.55-1.3)
[2023-07-30 12:07] LABS: BILIRUBIN,TOTAL 0.5 mg/dL (0.2-1)
[2023-07-30] MEDS: POLYETHYLENE GLYCOL 3350 255 GM BTL PO ONE (17:26)
[2023-07-30] MEDS: BISACODYL 5 MG TABLET.DR (FP) PO ONE (21:00)
[2023-07-31 09:35] LABS: INR 1.18 (0.83-1.09); PROTHROMBIN TIME (PATIENT) 13.7 SEC (9.7-13.0)
[2023-07-31 09:41] LABS: BASO % 0.8 % (0-2.0); EOS % 2.4 % (0-4.5); HEMATOCRIT 28.8 % (32.4-45.2); HEMOGLOBIN 9.5 GM/dL (10.7-15.3); LYMPH % 23.2 % (8-40); MCH 25.3 pg (25.7-33.7); MCHC 32.9 g/dl (32.0-36.0); MEAN CELL VOLUME 76.7 fl (80-96); MEAN PLT VOLUME 7.4 fl (7.5-11.1); MONO % 10.8 % (3.8-10.2); NEUT % 62.8 % (42.8-82.8); PLATELET COUNT 397 10^3/uL (134-434); RBC 3.76 M/mm3 (3.60-5.2); RDW 20.6 % (11.6-15.6); WHITE BLOOD COUNT 6.4 K/mm3 (4.0-10.0)
[2023-07-31 10:01] LABS: POTASSIUM 3.6 mmol/L (3.5-5.1)
[2023-07-31 10:06] LABS: CALCIUM 9.1 mg/dL (8.5-10.1)
[2023-07-31 10:07] LABS: BLOOD UREA NITROGEN 18.2 mg/dL (7-18)
[2023-07-31 10:11] LABS: BILIRUBIN,TOTAL 0.7 mg/dL (0.2-1); CREATININE 0.9 mg/dL (0.55-1.3); TOT PROT 7.2 g/dl (6.4-8.2)
[2023-07-31 14:46] VITALS: RESP 18
[2023-08-01 03:10] VITALS: BP 149/98; PULSE 79
[2023-08-01 05:31] VITALS: TEMP 98.6
[2023-08-01 09:57] LABS: BASO % 1.5 % (0-2.0); EOS % 3.8 % (0-4.5); HEMATOCRIT 28.9 % (32.4-45.2); HEMOGLOBIN 8.9 GM/dL (10.7-15.3); LYMPH % 15.9 % (8-40); MCH 23.9 pg (25.7-33.7); MCHC 30.8 g/dl (32.0-36.0); MEAN CELL VOLUME 77.6 fl (80-96); MEAN PLT VOLUME 7.6 fl (7.5-11.1); MONO % 10.3 % (3.8-10.2); NEUT % 68.5 % (42.8-82.8); PLATELET COUNT 395 10^3/uL (134-434); RBC 3.73 M/mm3 (3.60-5.2); RDW 21.7 % (11.6-15.6); WHITE BLOOD COUNT 4.9 K/mm3 (4.0-10.0)
[2023-08-01 10:21] LABS: POTASSIUM 3.4 mmol/L (3.5-5.1)
[2023-08-01 10:35] LABS: ALBUMIN 2.9 g/dl (3.4-5.0); BLOOD UREA NITROGEN 20.2 mg/dL (7-18); CALCIUM 9.1 mg/dL (8.5-10.1)
[2023-08-01 10:39] LABS: BILIRUBIN,TOTAL 0.4 mg/dL (0.2-1)
[2023-08-01 10:42] LABS: TOT PROT 6.8 g/dl (6.4-8.2)
[2023-08-01] MEDS: POTASSIUM CHLORIDE TABS 20 MEQ TABLET.ER (FP) PO ONE (13:24)
== END 2023-08-01 14:23 | DRG 812 ==
LOC: JER 10:39 → JERBED 13:11 → J6S 19:23
PROVIDERS: ADMIT Internal Medicine; ATTEND Internal Medicine
PROC: 30233N1 Transfusion of Nonautologous Red Blood Cells into Peripheral Vein, Percutaneous Approach (ICD-10-PCS; principal; 2023-07-27)
PROC: 0DB98ZX Excision of Duodenum, Via Natural or Artificial Opening Endoscopic, Diagnostic (ICD-10-PCS; 2023-07-30)
PROC: 0DB68ZX Excision of Stomach, Via Natural or Artificial Opening Endoscopic, Diagnostic (ICD-10-PCS; 2023-07-30)
DX: D50.9 Iron deficiency anemia, unspecified (principal); G30.9 Alzheimer's disease, unspecified; F02.80 Dementia in other diseases classified elsewhere, unspecified severity, without behavioral disturbance, psychotic disturbance, mood disturbance, and anxiety; I10 Essential (primary) hypertension; E78.5 Hyperlipidemia, unspecified; E11.9 Type 2 diabetes mellitus without complications; D62 Acute posthemorrhagic anemia; K59.00 Constipation, unspecified; K44.9 Diaphragmatic hernia without obstruction or gangrene; G40.909 Epilepsy, unspecified, not intractable, without status epilepticus; K29.40 Chronic atrophic gastritis without bleeding; Z86.73 Personal history of transient ischemic attack (TIA), and cerebral infarction without residual deficits
CPT/HCPCS: 36415; 36430; 71046-TC-FY; 74176-TC; 80053; 82248; 82272; 82607; 82728; 82746; 82962; 83010; 83036; 83540; 83550; 83615; 83735; 84100; 85025; 85045; 85610; 85730; 86850; 86900; 86901; 86922; 88305-TC; 93005; 93010; 97116-GP; 97162-GP; 99291; J1756; P9058